=== PATIENT | male | born 1965 | race Caucasian/White ===

== ENCOUNTER 2016-11-22 18:01 | Emergency (ER) | payer BC ==
[~2016-11-22] VITALS: Ht 193 cm; Wt 184.2 kg
--- NOTE | 2016-11-22 18:25 | PHYS DOC ---
Adult General Chief Complaint Chief Complaint: HAND PROBLEM HPI HPI Patient is a 50 year old male who presents with bilateral fingertip and bottom of the feet numbness. He states it started yesterday. He states it feels like it's asleep. He denies any pain or discomfort he denies any weakness in any extremities. He does have mild bilateral temporal headache but denies any vomiting, neck pain, fevers or chills. He drinks rarely. He does have prediabetes and takes metformin and states his hemoglobin A1c is around 5 as he just had labs checked on Tuesday when he saw Dr. Washburn in his office. Review of Systems Review of Systems Constitutional: Denies fever or chills [] Eyes: Denies change in visual acuity, redness, or eye pain [] HENT: Denies nasal congestion or sore throat [] Respiratory: Denies cough or shortness of breath [] Cardiovascular: No additional information not addressed in HPI [] GI: Denies abdominal pain, nausea, vomiting, bloody stools or diarrhea [] : Denies dysuria or hematuria [] Musculoskeletal: Denies back pain or joint pain [] Integument: Denies rash or skin lesions [] Neurologic: Denies headache, focal weakness, positive for bilateral fingertip and bottom of feet numbness Endocrine: Denies polyuria or polydipsia [] Current Medications Current Medications Current Medications Medications (Trade) Dose Ordered Sig/[facility] Start Time Stop Time Status Last Admin Dose Admin Acetaminophen (Tylenol) 1,000 mg 1X ONCE 11/22/16 20:45 11/22/16 20:46 11/22/16 20:43 1,000 MG Allergies Allergies Allergies Coded Allergies Type Severity Reaction Last Updated Verified No Known Drug Allergies 11/22/16 No Physical Exam Physical Exam Constitutional: Well developed, well nourished, no acute distress, non-toxic appearance. [] HENT: Normocephalic, atraumatic, bilateral external ears normal, oropharynx moist, no oral exudates, nose normal. [] Eyes: PERRLA, EOMI, conjunctiva normal, no discharge. [] Neck: Normal range of motion, no tenderness, supple, no stridor. [] Cardiovascular:Heart rate regular rhythm, no murmur [] Lungs & Thorax: Bilateral breath sounds clear to auscultation [] Abdomen: Bowel sounds normal, soft, no tenderness, no masses, no pulsatile masses. [] Skin: Warm, dry, no erythema, no rash. [] Back: No tenderness, no CVA tenderness. [] Extremities: No tenderness, no cyanosis, no clubbing, ROM intact, no edema. [] Neurologic: Alert and oriented X 3, normal motor function, normal sensory function, no focal deficits noted. [] Psychologic: Affect normal, judgement normal, mood normal. [] Current Patient Data Vital Signs Vital Signs Date Time Temp Pulse Resp B/P (MAP) Pulse Ox O2 Delivery O2 Flow Rate FiO2 11/22/16 19:47 87 20 164/90 (114) 96 Room Air 11/22/16 18:15 97.5 97.5 Lab Values Laboratory Tests Test 11/22/16 18:35 11/22/16 18:54 Glucose (Fingerstick) 121 mg/dL (70-99) H White Blood Count 10.5 x10^3/uL (4.0-11.0) Red Blood Count 5.26 x10^6/uL (4.30-5.70) Hemoglobin 14.7 g/dL (13.0-17.5) Hematocrit 43.5 % (39.0-53.0) Mean Corpuscular Volume 83 fL (79-100) Mean Corpuscular Hemoglobin 28 pg (25-35) Mean Corpuscular Hemoglobin Concent 34 g/dL (31-37) Red Cell Distribution Width 13.9 % (11.5-14.5) Platelet Count 366 x10^3/uL (140-400) Neutrophils (%) (Auto) 73 % (31-73) Lymphocytes (%) (Auto) 17 % (24-48) L Monocytes (%) (Auto) 7 % (0-9) Eosinophils (%) (Auto) 2 % (0-3) Basophils (%) (Auto) 1 % (0-3) Neutrophils # (Auto) 7.7 x10^3uL (1.8-7.7) Lymphocytes # (Auto) 1.8 x10^3/uL (1.0-4.8) Monocytes # (Auto) 0.7 x10^3/uL (0.0-1.1) Eosinophils # (Auto) 0.2 x10^3/uL (0.0-0.7) Basophils # (Auto) 0.1 x10^3/uL (0.0-0.2) Sodium Level 141 mmol/L (136-145) Potassium Level 3.7 mmol/L (3.5-5.1) Chloride Level 102 mmol/L (98-107) Carbon Dioxide Level 33 mmol/L (21-32) H Anion Gap 6 (6-14) Blood Urea Nitrogen 18 mg/dL (8-26) Creatinine 1.1 mg/dL (0.7-1.3) Estimated GFR (Cockcroft-Gault) 70.9 Glucose Level 102 mg/dL (70-99) H Calcium Level 9.4 mg/dL (8.5-10.1) Magnesium Level 2.0 mg/dL (1.8-2.4) Total Bilirubin 0.5 mg/dL (0.2-1.0) Direct Bilirubin 0.1 mg/dL (0.0-0.2) Aspartate Amino Transferase (AST) 22 U/L (15-37) Alanine Aminotransferase (ALT) 33 U/L (16-63) Alkaline Phosphatase 62 U/L (46-116) Creatine Kinase 107 U/L (39-308) Creatine Kinase MB (Mass) 0.7 ng/mL (0.0-3.6) Creatine Kinase MB Relative Index 0.7 % (0-4) Total Protein 8.0 g/dL (6.4-8.2) Albumin 3.8 g/dL (3.4-5.0) Thyroid Stimulating Hormone (TSH) 4.088 uIU/mL (0.358-3.74) H Laboratory Tests 11/22/16 18:54 Laboratory Tests 11/22/16 18:54 EKG EKG [] Radiology/Procedures Radiology/Procedures [facility] [address] [place] [address] IMAGING REPORT Signed PATIENT: PHAM KILGORE ACCOUNT: [id number] : 1965 LOCATION: ER AGE: 50 SEX: M EXAM STATUS: REG ER ORD. PHYSICIAN: HANNAH MELARA MD REASON: hand numbness, headache PROCEDURE: CT HEAD WO CONTRAST Indication: Tingling in the feet. Axial imaging through the brain was performed without contrast. One or more of the following individualized dose reduction techniques were utilized for this examination: 1. Automated exposure control 2. Adjustment of the mA and/or kV according to patient size 3. Use of iterative reconstruction technique The ventricles and sulci are within normal limits. No sulcal effacement, midline shift or hemorrhage is detected. The cisterns are patent. There is mucosal thickening of the maxillary sinuses. IMPRESSION: No acute intracranial process is detected. Electronically signed by: Telly Keita MD (11/22/2016 8:11 PM) [facility] DICTATED and SIGNED BY: TELLY KEITA MD DATE: 11/22/162009 CC: HANNAH MELARA MD; SCOTT WASHBURN MD ~ Impressions: Peripheral neuropathy Course & Med Decision Making Course & Med Decision Making Pertinent Labs and Imaging studies reviewed. (See chart for details) Head does not show any acute abnormality's. He was given a gram of Tylenol for his mild headache which is likely sinus in nature. His symptoms are going on for greater than 24 hours. I do not suspect a stroke as its bilateral fingertips and bilateral soles of feet that feels like there are "asleep". B12 folic acids pending at this time. Patient's a follow-up with his primary care physician who can follow up on these labs and do additional testing if indicated that time. He does not have diabetes that severe enough to cause this or drink alcohol. Patient's agreeable plan being discharged in stable condition at this time with return precautions given. Dragon Disclaimer Dragon Disclaimer This electronic medical record was generated, in whole or in part, using a voice recognition dictation system. Departure Departure Impression: Primary Impression: Peripheral neuropathy Disposition: HOME, SELF-CARE Condition: STABLE Referrals: SCOTT WASHBURN MD Patient Instructions: Pain, Neuropathic-Brief Additional Instructions: CAT scan of your head, basic labs do not show any acute abnormality's. B12 and folic acid labs are still pending and you will need to follow-up with Dr. Washburn regarding these. If your symptoms get worse, you have any weakness, he developed fevers or other concerns please return back to the emergency department. Problem Qualifiers Primary Impression: Peripheral neuropathy Peripheral neuropathy type: polyneuropathy, unspecified Qualified Codes: G62.9 - Polyneuropathy, unspecified HANNAH MELARA MD Nov 22, 2016 18:25
[2016-11-22 19:02] LABS: BASO # 0.1 x10^3/uL (0.0-0.2); BASO % 1 % (0-3); EOS % 2 % (0-3); HEMATOCRIT 43.5 % (39.0-53.0); HEMOGLOBIN 14.7 g/dL (13.0-17.5); LYMPH # 1.8 x10^3/uL (1.0-4.8); LYMPH % 17 % (24-48); MEAN CORPUSCULAR HEMOGLOBIN 28 pg (25-35); MEAN CORPUSCULAR HGB CONC 34 g/dL (31-37); MEAN CORPUSCULAR VOLUME 83 fL (79-100); MONO % 7 % (0-9); NEUT % 73 % (31-73); PLATELET COUNT 366 x10^3/uL (140-400); RED BLOOD COUNT 5.26 x10^6/uL (4.30-5.70); RED CELL DISTRIBUTION WIDTH 13.9 % (11.5-14.5); WHITE BLOOD COUNT 10.5 x10^3/uL (4.0-11.0)
[2016-11-22 19:16] LABS: CALCIUM 9.4 mg/dL (8.5-10.1); CREATININE 1.1 mg/dL (0.7-1.3); GFR 70.9; POTASSIUM 3.7 mmol/L (3.5-5.1)
[2016-11-22 19:20] LABS: ALBUMIN 3.8 g/dL (3.4-5.0); DIRECT BILIRUBIN 0.1 mg/dL (0.0-0.2); TOTAL BILIRUBIN 0.5 mg/dL (0.2-1.0)
[2016-11-22 19:29] LABS: CKMB MASS 0.7 ng/mL (0.0-3.6)
[2016-11-22 20:14] VITALS: BP 136/74
--- NOTE | 2016-11-22 20:14 | RAD ---
Indication: Tingling in the feet. Axial imaging through the brain was performed without contrast. One or more of the following individualized dose reduction techniques were utilized for this examination: 1. Automated exposure control 2. Adjustment of the mA and/or kV according to patient size 3. Use of iterative reconstruction technique The ventricles and sulci are within normal limits. No sulcal effacement, midline shift or hemorrhage is detected. The cisterns are patent. There is mucosal thickening of the maxillary sinuses. IMPRESSION: No acute intracranial process is detected. Electronically signed by: Telly Keita MD (11/22/2016 8:11 PM) [facility]
[2016-11-22] MEDS ORDERED: ACETAMINOPHEN 500 MG TABLET PO ONE (20:45)
[2016-11-23 08:48] LABS: FOLATE 9.39 ng/ml (3.2-20.0)
== END 2016-11-22 21:02 | disposition home or self-care (01) ==
LOC: ER 18:01
DX: G62.9 Polyneuropathy, unspecified (principal)
CPT/HCPCS: 36415; 70450; 80048; 80076; 82553; 82607; 82746; 82962; 83735; 84443; 85025; 99285-25

== ENCOUNTER 2016-11-25 13:45 | Inpatient (IN) | payer BC ==
[~2016-11-25] VITALS: Ht 185.4 cm; Wt 186.4 kg
[2016-11-25 14:34] LABS: BASO # 0.1 x10^3/uL (0.0-0.2); BASO % 1 % (0-3); EOS % 0 % (0-3); HEMATOCRIT 48.4 % (39.0-53.0); HEMOGLOBIN 16.6 g/dL (13.0-17.5); LYMPH # 1.9 x10^3/uL (1.0-4.8); LYMPH % 12 % (24-48); MEAN CORPUSCULAR HEMOGLOBIN 28 pg (25-35); MEAN CORPUSCULAR HGB CONC 34 g/dL (31-37); MEAN CORPUSCULAR VOLUME 82 fL (79-100); MONO % 7 % (0-9); NEUT % 81 % (31-73); PLATELET COUNT 487 x10^3/uL (140-400); RED BLOOD COUNT 5.88 x10^6/uL (4.30-5.70); RED CELL DISTRIBUTION WIDTH 13.8 % (11.5-14.5); WHITE BLOOD COUNT 15.7 x10^3/uL (4.0-11.0)
[2016-11-25 14:46] LABS: CALCIUM 10.3 mg/dL (8.5-10.1); CREATININE 1.2 mg/dL (0.7-1.3); GFR 64.1; POTASSIUM 4.2 mmol/L (3.5-5.1)
--- NOTE | 2016-11-25 14:49 | EKG ---
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
[2016-11-25 14:51] LABS: ALBUMIN 4.2 g/dL (3.4-5.0); TOTAL BILIRUBIN 0.6 mg/dL (0.2-1.0); TOTAL PROTEIN 8.6 g/dL (6.4-8.2)
--- NOTE | 2016-11-25 15:03 | RAD ---
Indication generalized weakness. No specific chest complaints today. Protocol study. A single view of the chest was obtained. No prior imaging of the chest is available. The study is limited by some motion and patient body habitus. Heart size and pulmonary vessels appear within normal limits. There is some slight volume loss at the lung bases likely reflecting atelectasis. A consolidated pneumonia is not seen. Significant pleural fluid is not present and there is no pneumothorax. The visualized bony structures appear grossly intact. IMPRESSION: Slightly limited study. No acute finding seen. Minimal volume loss at the lung bases likely reflects atelectasis
--- NOTE | 2016-11-25 17:41 | RAD ---
MRI of the cervical spine without contrast 11/25/2016 CLINICAL HISTORY: Numbness in hands and feet since Tuesday. TECHNIQUE: Unenhanced T1-weighted, T2-weighted and inversion recovery sagittal and T2 weighted axial images of the brain were obtained. The patient was able to tolerate further imaging and gradient echo axial images of the cervical spine were unable to be obtained. FINDINGS: Images from the study are degraded by patient motion. Mild lateral curvature of the cervical spine is seen convex to the right. Degenerative signal changes are seen involving all of the disks of the cervical spine. Degenerative signal changes within the marrow surrounding these discs. The cervical spinal cord is normal morphology, position, and signal characteristics. The C2-3 disc space is within normal limits. At the C3-4 and C4-5 disc spaces there are mild generalized disc bulge. Degenerative changes are seen involving the uncovertebral and facet joints bilaterally. These findings do not result in significant central spinal canal. No neural foraminal stenosis is seen. At the C5-6 disc space there is a mild generalized disc bulge. Degenerative changes are seen involving the uncovertebral and facet joints. These findings do not result in significant central spinal canal stenosis. Mild bilateral neural foraminal stenosis is seen. At the C6-7 disc space there is a mild generalized disc bulge. Degenerative changes are seen involving the uncovertebral and facet joints bilaterally. These findings do not result in significant central spinal canal or neural foraminal stenosis. At the C7-T1 disc space there is a mild generalized disc bulge. Degenerative changes are seen involving the uncovertebral and facet joints bilaterally. These findings do not result in significant central spinal canal or neural foraminal stenosis. IMPRESSION: Degenerative changes are seen throughout the cervical spine. These findings do not result in significant central spinal canal stenosis at any level. Mild bilateral neural foraminal stenosis is seen at C5-6. Electronically signed by: Tonny Almazan MD (11/25/2016 5:37 PM) [facility]
[2016-11-25 18:25] LABS: BILIRUBIN,URINE NEGATIVE (NEG); GLUCOSE,URINE NEGATIVE (NEG); NITRITE,URINE NEGATIVE (NEG); PROTEIN,URINE NEGATIVE (NEG-TRACE)
[2016-11-25 18:34] LABS: BACTERIA,URINE 0 /HPF (0-FEW); RBC,URINE OCC /HPF (0-2); SQUAMOUS EPITHELIAL CELL,UR OCC /LPF; WBC,URINE OCC /HPF (0-4)
[2016-11-25] MEDS ORDERED: LIDOCAINE 2% 20 ML VIAL. ONE (19:13)
[2016-11-25] MEDS: IV NORMAL SALINE 1000ML BAG 1,000 ML IV SCH (20:42)
[2016-11-25] MEDS ORDERED: ONDANSETRON PF 4 MG/2 ML VIAL. IV PRN (20:45)
[2016-11-25 20:53] LABS: BARBITURATES NEG (NEG); BENZODIAZEPINES NEG (NEG); CANNABINOIDS NEG (NEG); COCAINE NEG (NEG); METHADONE NEG (NEG); OPIATES NEG (NEG); PHENCYCLIDINE NEG (NEG)
--- NOTE | 2016-11-25 21:03 | PHYS DOC ---
Past Medical History Past Medical History: Diabetes-Type II, Hypertension Additional Past Medical Histor: Gout, Obesity Past Surgical History: Appendectomy Additional Past Surgical Histo: wrist, knee Additional Information: Chews tobacco Alcohol Use: Occasionally Drug Use: None Adult General Chief Complaint Chief Complaint: WEAKNESS/GENERALIZED HPI HPI Patient is a 50 year old male who presents with generalized weakness, and numbness of fingers and toes. Symptoms started approximately one week ago. Patient was evaluated emergency department 3 days ago for the same. Patient had extensive workup including CT of the head and lateral which were normal. She was discharged home with instructions to follow-up by his PCP and is currently scheduled to see his doctor in 3 days. Patient's symptoms gradually worsens since discharge. He headache, neck pain, fever, back pain, urinary incontinence and bowel incontinence. No saddle anesthesia. Reports increased muscle weakness and poor progression of tingling. He denies shortness of breath, chest pain, chest tightness. Patient is a prediabetic is currently on metformin. Reports good control blood sugars and recent hemoglobin A1c of 5. Patient denies she no alcohol or history of malnutrition. No other acute symptoms or complaints.[] Review of Systems Review of Systems Review symptoms as per history of present illness. All other review symptoms are negative. Current Medications Current Medications Current Medications Medications (Trade) Dose Ordered Sig/Richie Start Time Stop Time Status Last Admin Dose Admin Lorazepam (Ativan) 2 mg 1X ONCE 11/25/16 16:45 11/25/16 16:46 DC 11/25/16 16:47 2 MG Allergies Allergies Allergies Coded Allergies Type Severity Reaction Last Updated Verified No Known Drug Allergies 11/22/16 No Physical Exam Physical Exam Constitutional: Well developed, well nourished, no acute distress, nontoxic appearing.[] HENT: Normocephalic, atraumatic, bilateral external ears normal, oropharynx moist, no oral exudates, nose normal. [] Eyes: PERRLA, EOMI, conjunctiva normal, no discharge. [] Neck: Normal range of motion, no tenderness, supple, no stridor. [] Cardiovascular:Heart rate regular rhythm, no murmur [] Lungs & Thorax: Bilateral breath sounds clear to auscultation [] Abdomen: Bowel sounds normal, soft, no tenderness, no masses, no pulsatile masses. [] Skin: Warm, dry, no erythema, no rash. [] Back: No tenderness, no CVA tenderness. [] Extremities: No tenderness, no cyanosis, no clubbing, ROM intact, no edema. [] Neurologic: Alert and oriented X 3, nerves II through XII grossly intact, motor strength, 4-5 upper and lower extremity and symmetric. Decreased sensation involving forefoot and toes, decreased sensation in TIPS the fingers from DIP to TIPS. Symmetric 1+ brachialis reflexes. Unable to illicit patellar reflexes. [][] Current Patient Data Vital Signs Vital Signs Date Time Temp Pulse Resp B/P (MAP) Pulse Ox O2 Delivery O2 Flow Rate FiO2 11/25/16 17:21 80 95 11/25/16 14:26 97.0 20 161/98 (119) Room Air 97.0 Lab Values Laboratory Tests Test 11/25/16 14:20 11/25/16 14:43 White Blood Count 15.7 x10^3/uL (4.0-11.0) H Red Blood Count 5.88 x10^6/uL (4.30-5.70) H Hemoglobin 16.6 g/dL (13.0-17.5) Hematocrit 48.4 % (39.0-53.0) Mean Corpuscular Volume 82 fL (79-100) Mean Corpuscular Hemoglobin 28 pg (25-35) Mean Corpuscular Hemoglobin Concent 34 g/dL (31-37) Red Cell Distribution Width 13.8 % (11.5-14.5) Platelet Count 487 x10^3/uL (140-400) H Neutrophils (%) (Auto) 81 % (31-73) H Lymphocytes (%) (Auto) 12 % (24-48) L Monocytes (%) (Auto) 7 % (0-9) Eosinophils (%) (Auto) 0 % (0-3) Basophils (%) (Auto) 1 % (0-3) Neutrophils # (Auto) 12.7 x10^3uL (1.8-7.7) H Lymphocytes # (Auto) 1.9 x10^3/uL (1.0-4.8) Monocytes # (Auto) 1.1 x10^3/uL (0.0-1.1) Eosinophils # (Auto) 0.0 x10^3/uL (0.0-0.7) Basophils # (Auto) 0.1 x10^3/uL (0.0-0.2) Sodium Level 137 mmol/L (136-145) Potassium Level 4.2 mmol/L (3.5-5.1) Chloride Level 99 mmol/L (98-107) Carbon Dioxide Level 27 mmol/L (21-32) Anion Gap 11 (6-14) Blood Urea Nitrogen 22 mg/dL (8-26) Creatinine 1.2 mg/dL (0.7-1.3) Estimated GFR (Cockcroft-Gault) 64.1 BUN/Creatinine Ratio 18 (6-20) Glucose Level 108 mg/dL (70-99) H Calcium Level 10.3 mg/dL (8.5-10.1) H Total Bilirubin 0.6 mg/dL (0.2-1.0) Aspartate Amino Transferase (AST) 36 U/L (15-37) Alanine Aminotransferase (ALT) 40 U/L (16-63) Alkaline Phosphatase 71 U/L (46-116) Troponin I Quantitative < 0.017 ng/mL (0.000-0.055) Total Protein 8.6 g/dL (6.4-8.2) H Albumin 4.2 g/dL (3.4-5.0) Albumin/Globulin Ratio 1.0 (1.0-1.7) Ethyl Alcohol Level < 10 mg/dL (0-10) Glucose (Fingerstick) 118 mg/dL (70-99) H Laboratory Tests 11/25/16 14:20 Laboratory Tests 11/25/16 14:20 EKG EKG [] Radiology/Procedures Radiology/Procedures [MRI cervical spine: Degenerative changes throughout cervical spine. Mild bilateral neural foraminal steosis at C5/6. CT brain 11/22/16: No acute intracranial process per radiology report Chest x-ray: No acute cardiopulmonary disease] Lumbar puncture procedure note: Condition: Motor weakness need to obtain CSF for lab testing: Consent: Verbal consent was obtained from patient and written consent was obtained from the patient's mother after full risks and benefits were discussed in detail along with alternatives. Patient's and patient's mother verbalized understanding prior to giving consent. Anesthesia used: The patient had previously been given Ativan for anxiolysis and is mildly sedated Operating physician: Dr. Aashish Myers The patient was placed in the left lateral recumbent position with knees to chest and chin to chest. His back was exposed and bowed towards the examiner. Approximate 4 mL of lidocaine was injected into the L2-L3 interspace. Following which a 3 and half inch 22-gauge Quincke needle was cautiously inserted. However , due to the patient's body habitus was unsuccessful and a larger needle was used to attempt to locate the dural space. Three attempts with a longer needle were unsuccessful. Patient experienced minimal discomfort. No further attempts were made. Attempts were then made to contact interventional radiology and request their assistance for fluoroscopic guidance of lumbar puncture procedure. Course & Med Decision Making Course & Med Decision Making Pertinent Labs and Imaging studies reviewed. (See chart for details) [Patient with bilateral neuropathy and motor weakness with symptoms and physical exam consistent with Maritza Barragan. Attempted lumbar puncture unsuccessful. Dr. Donahue consulted for neurology. Interventional radiology consult at for lumbar puncture by fluoroscopy camera. She'll be admitted to the ICU for K for monitor and placed on capnometry and further evaluation. Dragon Disclaimer Dragon Disclaimer This electronic medical record was generated, in whole or in part, using a voice recognition dictation system. Departure Departure Impression: Primary Impression: Weakness Additional Impressions: Numbness and tingling of both feet Bilateral finger numbness Disposition: ADMITTED INPATIENT Condition: GUARDED Referrals: SCOTT WASHBURN MD (PCP) Problem Qualifiers AASHISH MYERS DO Nov 25, 2016 21:03
[2016-11-25 21:30] VITALS: BP 166/88
[2016-11-25 21:45] VITALS: BP 169/86
[2016-11-25 22:00] VITALS: BP 166/97
[2016-11-25 22:15] VITALS: BP 166/94
[2016-11-25 23:00] VITALS: BP 149/94
[2016-11-26] VITALS (24 sets, daily range): BP systolic 146–189; BP diastolic 68–102
--- NOTE | 2016-11-26 00:06 | HP ---
ADMIT DATE: 11/25/2016 CHIEF COMPLAINT: Weakness and numbness hands and numb feet. HISTORY OF PRESENT ILLNESS: The patient is a pleasant 50-year-old male who has numb fingers and numb feet, he is also quite weak. His mother states she called her and states he could not move. He actually went to the ER last night, but today his symptoms have got worse. I discussed the case with the ER physician. I came and saw him in room 10 in the Emergency Room. On a hunch I did ask him if he got a flu shot, he states he got 1 to 2 weeks. 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 The patient is being admitted to the ICU. PAST MEDICAL HISTORY: Diabetes, hypertension, gout, obesity, appendectomy, wrist and knee surgery. ALLERGIES: None. FAMILY HISTORY: Diabetes. SOCIAL HISTORY: He does not drink, smoke or take drugs. MEDICATIONS: Reviewed. REVIEW OF SYSTEMS: GENERAL: No history of weight change, weakness or fevers. SKIN: No bruising, hair changes or rashes. EYES: No blurred, double or loss of vision. NOSE AND THROAT: No history of nosebleeds, hoarseness or sore throat. HEART: No history of palpitations, chest pain or shortness of breath on exertion. LUNGS: Denies cough, hemoptysis, wheezing or shortness of breath. GASTROINTESTINAL: Denies changes in appetite, nausea, vomiting, diarrhea or constipation. GENITOURINARY: No history of frequency, urgency, hesitancy or nocturia. NEUROLOGIC: He complains of weakness, and numb hands and numb feet. PSYCHIATRIC: No history of panic, anxiety or depression. ENDOCRINE: No history of heat or cold intolerance, polyuria or polydipsia. EXTREMITIES: Denies muscle weakness, joint pain, pain on walking or stiffness. PHYSICAL EXAMINATION: VITAL SIGNS: Temperature 98.2, pulse 110, respirations 20, blood pressure 162/90. GENERAL: He is awake. His mother is present. He is weak. HEART: Normal S1, S2. LUNGS: Clear. ABDOMEN: Soft, obese. EXTREMITIES: Trace edema. SKIN: No rashes. PSYCHIATRIC: He seems depressed. VASCULAR: Good capillary refill. ENDOCRINE: No thyromegaly. LYMPHATICS: No cervical nodes. HEMATOPOIETIC: No bruising. 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 LABORATORY DATA: White count 15, hemoglobin 16, platelets 47. Electrolytes normal. MRI of the brain was negative. Drug screen is negative. Urinalysis trace leukocyte esterase but otherwise negative. 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 I have discussed this at length with the ER physician. We did order an MRI to make sure there is no acute injury to the brain. We have consulted Dr. Donahue of the neurological service. We will admit to the ICU. We will consider IVIG and/or plasmapheresis if Dr. Donahue agrees. We have asked Dr. Hester of Interventional Radiology service to do a lumbar puncture. PROGNOSIS: Guarded. I am going go ahead and consult Infectious Disease for second opinion as well. JUAN LAZO DO DR: DIANA/concepcion JOB#: [id number] / [id number]
[2016-11-26] MEDS ORDERED: ALLO100T PO (00:58)
[2016-11-26] MEDS ORDERED: METO-239 PO (00:58)
[2016-11-26] MEDS ORDERED: METF850T2 PO (00:58)
[2016-11-26] MEDS ORDERED: LEVO50TA PO (00:58)
[2016-11-26] MEDS ORDERED: RANI150T6 PO (00:58)
[2016-11-26] MEDS ORDERED: LOSA1TAB25 PO (00:58)
[2016-11-26] MEDS ORDERED: BENZ100C PO (00:59)
[2016-11-26 05:52] LABS: BASO % 0 % (0-3); EOS % 0 % (0-3); HEMATOCRIT 43.4 % (39.0-53.0); HEMOGLOBIN 14.7 g/dL (13.0-17.5); LYMPH # 1.6 x10^3/uL (1.0-4.8); LYMPH % 11 % (24-48); MEAN CORPUSCULAR HEMOGLOBIN 28 pg (25-35); MEAN CORPUSCULAR HGB CONC 34 g/dL (31-37); MEAN CORPUSCULAR VOLUME 82 fL (79-100); MONO % 8 % (0-9); NEUT % 80 % (31-73); PLATELET COUNT 409 x10^3/uL (140-400); RED BLOOD COUNT 5.29 x10^6/uL (4.30-5.70); RED CELL DISTRIBUTION WIDTH 14.1 % (11.5-14.5); WHITE BLOOD COUNT 14.2 x10^3/uL (4.0-11.0)
[2016-11-26 06:34] LABS: GFR 79.1; POTASSIUM 3.4 mmol/L (3.5-5.1)
[2016-11-26] MEDS ORDERED: POTASSIUM CHLORIDE 20 MEQ TABLET.ER. PO ONE (07:45)
--- NOTE | 2016-11-26 08:41 | PDOC ---
Infectious Disease Note Vital Sign Vital Signs Vital Signs Date Time Temp Pulse Resp B/P (MAP) Pulse Ox O2 Delivery O2 Flow Rate FiO2 11/26/16 06:00 81 16 155/73 (100) 96 Room Air 11/26/16 04:00 98.5 98.5 11/26/16 02:00 2.0 Labs Lab Laboratory Tests Test 11/25/16 14:20 11/25/16 14:43 11/25/16 18:18 11/26/16 04:00 White Blood Count 15.7 x10^3/uL (4.0-11.0) 14.2 x10^3/uL (4.0-11.0) Red Blood Count 5.88 x10^6/uL (4.30-5.70) 5.29 x10^6/uL (4.30-5.70) Hemoglobin 16.6 g/dL (13.0-17.5) 14.7 g/dL (13.0-17.5) Hematocrit 48.4 % (39.0-53.0) 43.4 % (39.0-53.0) Mean Corpuscular Volume 82 fL (79-100) 82 fL (79-100) Mean Corpuscular Hemoglobin 28 pg (25-35) 28 pg (25-35) Mean Corpuscular Hemoglobin Concent 34 g/dL (31-37) 34 g/dL (31-37) Red Cell Distribution Width 13.8 % (11.5-14.5) 14.1 % (11.5-14.5) Platelet Count 487 x10^3/uL (140-400) 409 x10^3/uL (140-400) Neutrophils (%) (Auto) 81 % (31-73) 80 % (31-73) Lymphocytes (%) (Auto) 12 % (24-48) 11 % (24-48) Monocytes (%) (Auto) 7 % (0-9) 8 % (0-9) Eosinophils (%) (Auto) 0 % (0-3) 0 % (0-3) Basophils (%) (Auto) 1 % (0-3) 0 % (0-3) Neutrophils # (Auto) 12.7 x10^3uL (1.8-7.7) 11.4 x10^3uL (1.8-7.7) Lymphocytes # (Auto) 1.9 x10^3/uL (1.0-4.8) 1.6 x10^3/uL (1.0-4.8) Monocytes # (Auto) 1.1 x10^3/uL (0.0-1.1) 1.1 x10^3/uL (0.0-1.1) Eosinophils # (Auto) 0.0 x10^3/uL (0.0-0.7) 0.0 x10^3/uL (0.0-0.7) Basophils # (Auto) 0.1 x10^3/uL (0.0-0.2) 0.0 x10^3/uL (0.0-0.2) Sodium Level 137 mmol/L (136-145) 138 mmol/L (136-145) Potassium Level 4.2 mmol/L (3.5-5.1) 3.4 mmol/L (3.5-5.1) Chloride Level 99 mmol/L (98-107) 101 mmol/L (98-107) Carbon Dioxide Level 27 mmol/L (21-32) 25 mmol/L (21-32) Anion Gap 11 (6-14) 12 (6-14) Blood Urea Nitrogen 22 mg/dL (8-26) 22 mg/dL (8-26) Creatinine 1.2 mg/dL (0.7-1.3) 1.0 mg/dL (0.7-1.3) Estimated GFR (Cockcroft-Gault) 64.1 79.1 BUN/Creatinine Ratio 18 (6-20) Glucose Level 108 mg/dL (70-99) 110 mg/dL (70-99) Calcium Level 10.3 mg/dL (8.5-10.1) 9.0 mg/dL (8.5-10.1) Total Bilirubin 0.6 mg/dL (0.2-1.0) Aspartate Amino Transf (AST/SGOT) 36 U/L (15-37) Alanine Aminotransferase (ALT/SGPT) 40 U/L (16-63) Alkaline Phosphatase 71 U/L (46-116) Troponin I Quantitative < 0.017 ng/mL (0.000-0.055) Total Protein 8.6 g/dL (6.4-8.2) Albumin 4.2 g/dL (3.4-5.0) Albumin/Globulin Ratio 1.0 (1.0-1.7) Ethyl Alcohol Level < 10 mg/dL (0-10) RPR Titer Additional Testing Non reactive (Non Reactive) Glucose (Fingerstick) 118 mg/dL (70-99) Urine Color Yellow Urine Clarity Clear Urine pH 6.0 Urine Specific Daisy 1.025 Urine Protein Negative mg/dL (NEG-TRACE) Urine Glucose (UA) Negative mg/dL (NEG) Urine Ketones (Stick) 15 mg/dL (NEG) Urine Blood Trace (NEG) Urine Nitrite Negative (NEG) Urine Bilirubin Negative (NEG) Urine Urobilinogen Dipstick 1.0 mg/dL (0.2 mg/dL) Urine Leukocyte Esterase Trace (NEG) Urine RBC Occ /HPF (0-2) Urine WBC Occ /HPF (0-4) Urine Squamous Epithelial Cells Occ /LPF Urine Bacteria 0 /HPF (0-FEW) Urine Mucus Slight /LPF Urine Opiates Screen Neg (NEG) Urine Methadone Screen Neg (NEG) Urine Barbiturates Neg (NEG) Urine Phencyclidine Screen Neg (NEG) Urine Amphetamine/Methamphetamine Neg (NEG) Urine Benzodiazepines Screen Neg (NEG) Urine Cocaine Screen Neg (NEG) Urine Cannabinoids Screen Neg (NEG) Urine Ethyl Alcohol Neg (NEG) Test 11/26/16 07:45 Glucose (Fingerstick) 116 mg/dL (70-99) Objective Assessment Severe weakness, does not follow the GBS distribution Leukocytosis DM HTN Obesity Plan Plan of Care supportive care await Neurology input LP pending NICOLE CORDOVA MD Nov 26, 2016 08:41
--- NOTE | 2016-11-26 09:56 | CONS ---
DATE OF CONSULTATION: 11/26/2016 DATE OF SERVICE: 11/26/2016 REQUESTING PHYSICIAN: Dr. Shelly Murillo. REASON FOR CONSULTATION: Weakness with recent flu vaccine, rule out GBS and leukocytosis. HISTORY OF PRESENT ILLNESS: This is a 50-year-old gentleman who came in with extreme weakness. The patient says it started last Tuesday. It started with a tingling and numbness of the hands and feet and then he felt weak. The patient, although could walk. The patient denied any specific area of weakness with being leg first or anything like that. Denied any nausea, vomiting, diarrhea, denied any fever, chills, did have some headache and neck pain. The patient denied any urinary incontinence or bowel incontinence. The patient had visited 3 days ago in the ER and was discharged after workup, workup being negative. Now, since yesterday, he has difficulty walking he says and he is admitted for further workup. Lumbar puncture was attempted in the ER, was unsuccessful. The patient's white count was elevated as he came in yesterday at 15,000. The patient is currently sitting in chair, able to move his legs without any difficulty, and denies any chest pain, shortness of breath, abdominal pain, headache or visual symptoms. PAST MEDICAL HISTORY: Positive for diabetes mellitus and hypertension. The patient also has gout, obesity, has had appendicectomy. SOCIAL HISTORY: Negative for smoking, alcohol, illicit drug use. The patient does chew tobacco. ALLERGIES: No known drug allergies. CURRENT MEDICATIONS: Reviewed. REVIEW OF SYSTEMS: As per HPI, all other systems reviewed are negative. PHYSICAL EXAMINATION: GENERAL: Alert and oriented gentleman, not in distress. VITAL SIGNS: Stable, afebrile. HEENT: Both pupils are round and reacting. No conjunctival lesion, no ptosis or lid lag. NECK: Supple, no JVP, no lymphadenopathy. LUNGS: Clear. HEART: S1, S2 regular. ABDOMEN: Benign. EXTREMITIES: No edema or cyanosis. SKIN: Unremarkable. NEUROLOGIC: The patient does not appear to have any focal deficits. In fact, he is able to lift the legs against gravity and resistance, lower as well as upper extremities. SKIN: Unremarkable. The patient is awake, alert and appropriate in answering. LABORATORY DATA: White count is 14,000. BUN and creatinine is normal. His total protein is on the high side 8.6 with calcium being 10.3. Toxicology screen is negative. Urinalysis unremarkable. RPR done is negative. MRI of the cervical spine and CT of the head was unremarkable other than arthritis. IMPRESSION: 1. Extreme weakness, does not appear to me that following any Guillain-[place] Syndrome distribution. Atypical presentation is possible. The concern is that the patient did have 2 weeks ago flu vaccine. 2. Leukocytosis, probably reactive. 3. Diabetes. 4. Hypertension. 5. Obesity. RECOMMENDATION: Would continue supportive care. Await Neurology input . We will continue to follow. Thank you very much, Dr. Murillo, for giving me the opportunity to participate in this patient's care. NICOLE CORDOVA MD DR: NGOZI/concepcion JOB#: [id number] / [id number] DEBORAH
--- NOTE | 2016-11-26 11:19 | PDOC ---
PROGRESS NOTES Chief Complaint Chief Complaint Generalized weakness Numbness in hands and feet PMHx: Diabetes, hypertension, gout, obesity, appendectomy, wrist and knee surgery. History of Present Illness History of Present Illness Pt seen at bedside in the ICU, accompanied by . He is resting comfortably and sitting in his chair. Unable to ambulate due to weakness. He complains of some mild SOB at this time, but is moving air well, breathing on his own, able to speak in full sentences without pause and has normal O2 sats. He reports that his generalized weakness and numbness are still present, and seem to be worsening. Neuro consult placed-awaiting their input for further plan of care. IR and ID also consulted. Possible LP if recommended by neuro. Potassium at 3.4 this AM- 40 mg PO given. Will continue to monitor in the ICU for now and await subspec input. Vitals Vitals Vital Signs Date Time Temp Pulse Resp B/P (MAP) Pulse Ox O2 Delivery O2 Flow Rate FiO2 11/26/16 06:00 81 16 155/73 (100) 96 Room Air 11/26/16 04:00 98.5 98.5 11/26/16 02:00 2.0 Physical Exam General: Alert, Oriented X3, Cooperative, No acute distress Heart: Regular rate, Normal S1, Normal S2, No murmurs Lungs: Clear Abdomen: Soft Extremities: No clubbing, No cyanosis, No edema, Other (numbness of fingers and toes, diminished reflexes throughout) Skin: No rashes, No significant lesion Labs LABS Laboratory Tests Test 11/25/16 14:20 11/25/16 14:43 11/25/16 18:18 11/26/16 04:00 White Blood Count 15.7 x10^3/uL (4.0-11.0) 14.2 x10^3/uL (4.0-11.0) Red Blood Count 5.88 x10^6/uL (4.30-5.70) 5.29 x10^6/uL (4.30-5.70) Hemoglobin 16.6 g/dL (13.0-17.5) 14.7 g/dL (13.0-17.5) Hematocrit 48.4 % (39.0-53.0) 43.4 % (39.0-53.0) Mean Corpuscular Volume 82 fL (79-100) 82 fL (79-100) Mean Corpuscular Hemoglobin 28 pg (25-35) 28 pg (25-35) Mean Corpuscular Hemoglobin Concent 34 g/dL (31-37) 34 g/dL (31-37) Red Cell Distribution Width 13.8 % (11.5-14.5) 14.1 % (11.5-14.5) Platelet Count 487 x10^3/uL (140-400) 409 x10^3/uL (140-400) Neutrophils (%) (Auto) 81 % (31-73) 80 % (31-73) Lymphocytes (%) (Auto) 12 % (24-48) 11 % (24-48) Monocytes (%) (Auto) 7 % (0-9) 8 % (0-9) Eosinophils (%) (Auto) 0 % (0-3) 0 % (0-3) Basophils (%) (Auto) 1 % (0-3) 0 % (0-3) Neutrophils # (Auto) 12.7 x10^3uL (1.8-7.7) 11.4 x10^3uL (1.8-7.7) Lymphocytes # (Auto) 1.9 x10^3/uL (1.0-4.8) 1.6 x10^3/uL (1.0-4.8) Monocytes # (Auto) 1.1 x10^3/uL (0.0-1.1) 1.1 x10^3/uL (0.0-1.1) Eosinophils # (Auto) 0.0 x10^3/uL (0.0-0.7) 0.0 x10^3/uL (0.0-0.7) Basophils # (Auto) 0.1 x10^3/uL (0.0-0.2) 0.0 x10^3/uL (0.0-0.2) Sodium Level 137 mmol/L (136-145) 138 mmol/L (136-145) Potassium Level 4.2 mmol/L (3.5-5.1) 3.4 mmol/L (3.5-5.1) Chloride Level 99 mmol/L (98-107) 101 mmol/L (98-107) Carbon Dioxide Level 27 mmol/L (21-32) 25 mmol/L (21-32) Anion Gap 11 (6-14) 12 (6-14) Blood Urea Nitrogen 22 mg/dL (8-26) 22 mg/dL (8-26) Creatinine 1.2 mg/dL (0.7-1.3) 1.0 mg/dL (0.7-1.3) Estimated GFR (Cockcroft-Gault) 64.1 79.1 BUN/Creatinine Ratio 18 (6-20) Glucose Level 108 mg/dL (70-99) 110 mg/dL (70-99) Calcium Level 10.3 mg/dL (8.5-10.1) 9.0 mg/dL (8.5-10.1) Total Bilirubin 0.6 mg/dL (0.2-1.0) Aspartate Amino Transf (AST/SGOT) 36 U/L (15-37) Alanine Aminotransferase (ALT/SGPT) 40 U/L (16-63) Alkaline Phosphatase 71 U/L (46-116) Troponin I Quantitative < 0.017 ng/mL (0.000-0.055) Total Protein 8.6 g/dL (6.4-8.2) Albumin 4.2 g/dL (3.4-5.0) Albumin/Globulin Ratio 1.0 (1.0-1.7) Ethyl Alcohol Level < 10 mg/dL (0-10) RPR Titer Additional Testing Non reactive (Non Reactive) Glucose (Fingerstick) 118 mg/dL (70-99) Urine Color Yellow Urine Clarity Clear Urine pH 6.0 Urine Specific Traer 1.025 Urine Protein Negative mg/dL (NEG-TRACE) Urine Glucose (UA) Negative mg/dL (NEG) Urine Ketones (Stick) 15 mg/dL (NEG) Urine Blood Trace (NEG) Urine Nitrite Negative (NEG) Urine Bilirubin Negative (NEG) Urine Urobilinogen Dipstick 1.0 mg/dL (0.2 mg/dL) Urine Leukocyte Esterase Trace (NEG) Urine RBC Occ /HPF (0-2) Urine WBC Occ /HPF (0-4) Urine Squamous Epithelial Cells Occ /LPF Urine Bacteria 0 /HPF (0-FEW) Urine Mucus Slight /LPF Urine Opiates Screen Neg (NEG) Urine Methadone Screen Neg (NEG) Urine Barbiturates Neg (NEG) Urine Phencyclidine Screen Neg (NEG) Urine Amphetamine/Methamphetamine Neg (NEG) Urine Benzodiazepines Screen Neg (NEG) Urine Cocaine Screen Neg (NEG) Urine Cannabinoids Screen Neg (NEG) Urine Ethyl Alcohol Neg (NEG) Creatine Kinase 438 U/L (39-308) Vitamin B12 Level 377 pg/mL (247-911) Thyroid Stimulating Hormone (TSH) 2.899 uIU/mL (0.358-3.74) Test 11/26/16 07:45 Glucose (Fingerstick) 116 mg/dL (70-99) Review of Systems Review of Systems Gen: + generalized weakness, + fatigue, no fevers or chills CV: No CP or palp Resp: + mild SOB, no wheezing Neuro: + numbness to hands and feet Assessment and Plan Assessmemt and Plan Problems Medical Problems: (1) Bilateral finger numbness Status: Acute (2) Numbness and tingling of both feet Status: Acute (3) Weakness Status: Acute Assessment: Bilat Finger numbness Numbness and tingling to both feet generalized weakness SOB Diabetes hypertension gout obesity Plan: Discussed with patient and at bedside in the ICU Awaiting neuro input for further plan of care recheck labs PT/OT home meds ID and IR following Imaging negative for acute process Will continue to monitor in the ICU and await subspec input for further plan of care Problems: Comment Review of Relevant I have reviewed the following items jada (where applicable) has been applied. Labs Laboratory Tests Test 11/25/16 14:20 11/25/16 14:43 11/25/16 18:18 11/26/16 04:00 White Blood Count 15.7 x10^3/uL (4.0-11.0) 14.2 x10^3/uL (4.0-11.0) Red Blood Count 5.88 x10^6/uL (4.30-5.70) 5.29 x10^6/uL (4.30-5.70) Hemoglobin 16.6 g/dL (13.0-17.5) 14.7 g/dL (13.0-17.5) Hematocrit 48.4 % (39.0-53.0) 43.4 % (39.0-53.0) Mean Corpuscular Volume 82 fL (79-100) 82 fL (79-100) Mean Corpuscular Hemoglobin 28 pg (25-35) 28 pg (25-35) Mean Corpuscular Hemoglobin Concent 34 g/dL (31-37) 34 g/dL (31-37) Red Cell Distribution Width 13.8 % (11.5-14.5) 14.1 % (11.5-14.5) Platelet Count 487 x10^3/uL (140-400) 409 x10^3/uL (140-400) Neutrophils (%) (Auto) 81 % (31-73) 80 % (31-73) Lymphocytes (%) (Auto) 12 % (24-48) 11 % (24-48) Monocytes (%) (Auto) 7 % (0-9) 8 % (0-9) Eosinophils (%) (Auto) 0 % (0-3) 0 % (0-3) Basophils (%) (Auto) 1 % (0-3) 0 % (0-3) Neutrophils # (Auto) 12.7 x10^3uL (1.8-7.7) 11.4 x10^3uL (1.8-7.7) Lymphocytes # (Auto) 1.9 x10^3/uL (1.0-4.8) 1.6 x10^3/uL (1.0-4.8) Monocytes # (Auto) 1.1 x10^3/uL (0.0-1.1) 1.1 x10^3/uL (0.0-1.1) Eosinophils # (Auto) 0.0 x10^3/uL (0.0-0.7) 0.0 x10^3/uL (0.0-0.7) Basophils # (Auto) 0.1 x10^3/uL (0.0-0.2) 0.0 x10^3/uL (0.0-0.2) Sodium Level 137 mmol/L (136-145) 138 mmol/L (136-145) Potassium Level 4.2 mmol/L (3.5-5.1) 3.4 mmol/L (3.5-5.1) Chloride Level 99 mmol/L (98-107) 101 mmol/L (98-107) Carbon Dioxide Level 27 mmol/L (21-32) 25 mmol/L (21-32) Anion Gap 11 (6-14) 12 (6-14) Blood Urea Nitrogen 22 mg/dL (8-26) 22 mg/dL (8-26) Creatinine 1.2 mg/dL (0.7-1.3) 1.0 mg/dL (0.7-1.3) Estimated GFR (Cockcroft-Gault) 64.1 79.1 BUN/Creatinine Ratio 18 (6-20) Glucose Level 108 mg/dL (70-99) 110 mg/dL (70-99) Calcium Level 10.3 mg/dL (8.5-10.1) 9.0 mg/dL (8.5-10.1) Total Bilirubin 0.6 mg/dL (0.2-1.0) Aspartate Amino Transf (AST/SGOT) 36 U/L (15-37) Alanine Aminotransferase (ALT/SGPT) 40 U/L (16-63) Alkaline Phosphatase 71 U/L (46-116) Troponin I Quantitative < 0.017 ng/mL (0.000-0.055) Total Protein 8.6 g/dL (6.4-8.2) Albumin 4.2 g/dL (3.4-5.0) Albumin/Globulin Ratio 1.0 (1.0-1.7) Ethyl Alcohol Level < 10 mg/dL (0-10) RPR Titer Additional Testing Non reactive (Non Reactive) Glucose (Fingerstick) 118 mg/dL (70-99) Urine Color Yellow Urine Clarity Clear Urine pH 6.0 Urine Specific Traer 1.025 Urine Protein Negative mg/dL (NEG-TRACE) Urine Glucose (UA) Negative mg/dL (NEG) Urine Ketones (Stick) 15 mg/dL (NEG) Urine Blood Trace (NEG) Urine Nitrite Negative (NEG) Urine Bilirubin Negative (NEG) Urine Urobilinogen Dipstick 1.0 mg/dL (0.2 mg/dL) Urine Leukocyte Esterase Trace (NEG) Urine RBC Occ /HPF (0-2) Urine WBC Occ /HPF (0-4) Urine Squamous Epithelial Cells Occ /LPF Urine Bacteria 0 /HPF (0-FEW) Urine Mucus Slight /LPF Urine Opiates Screen Neg (NEG) Urine Methadone Screen Neg (NEG) Urine Barbiturates Neg (NEG) Urine Phencyclidine Screen Neg (NEG) Urine Amphetamine/Methamphetamine Neg (NEG) Urine Benzodiazepines Screen Neg (NEG) Urine Cocaine Screen Neg (NEG) Urine Cannabinoids Screen Neg (NEG) Urine Ethyl Alcohol Neg (NEG) Creatine Kinase 438 U/L (39-308) Vitamin B12 Level 377 pg/mL (247-911) Thyroid Stimulating Hormone (TSH) 2.899 uIU/mL (0.358-3.74) Test 11/26/16 07:45 Glucose (Fingerstick) 116 mg/dL (70-99) Laboratory Tests Test 11/25/16 14:20 11/25/16 14:43 11/25/16 18:18 11/26/16 04:00 White Blood Count 15.7 x10^3/uL (4.0-11.0) 14.2 x10^3/uL (4.0-11.0) Red Blood Count 5.88 x10^6/uL (4.30-5.70) 5.29 x10^6/uL (4.30-5.70) Hemoglobin 16.6 g/dL (13.0-17.5) 14.7 g/dL (13.0-17.5) Hematocrit 48.4 % (39.0-53.0) 43.4 % (39.0-53.0) Mean Corpuscular Volume 82 fL (79-100) 82 fL (79-100) Mean Corpuscular Hemoglobin 28 pg (25-35) 28 pg (25-35) Mean Corpuscular Hemoglobin Concent 34 g/dL (31-37) 34 g/dL (31-37) Red Cell Distribution Width 13.8 % (11.5-14.5) 14.1 % (11.5-14.5) Platelet Count 487 x10^3/uL (140-400) 409 x10^3/uL (140-400) Neutrophils (%) (Auto) 81 % (31-73) 80 % (31-73) Lymphocytes (%) (Auto) 12 % (24-48) 11 % (24-48) Monocytes (%) (Auto) 7 % (0-9) 8 % (0-9) Eosinophils (%) (Auto) 0 % (0-3) 0 % (0-3) Basophils (%) (Auto) 1 % (0-3) 0 % (0-3) Neutrophils # (Auto) 12.7 x10^3uL (1.8-7.7) 11.4 x10^3uL (1.8-7.7) Lymphocytes # (Auto) 1.9 x10^3/uL (1.0-4.8) 1.6 x10^3/uL (1.0-4.8) Monocytes # (Auto) 1.1 x10^3/uL (0.0-1.1) 1.1 x10^3/uL (0.0-1.1) Eosinophils # (Auto) 0.0 x10^3/uL (0.0-0.7) 0.0 x10^3/uL (0.0-0.7) Basophils # (Auto) 0.1 x10^3/uL (0.0-0.2) 0.0 x10^3/uL (0.0-0.2) Sodium Level 137 mmol/L (136-145) 138 mmol/L (136-145) Potassium Level 4.2 mmol/L (3.5-5.1) 3.4 mmol/L (3.5-5.1) Chloride Level 99 mmol/L (98-107) 101 mmol/L (98-107) Carbon Dioxide Level 27 mmol/L (21-32) 25 mmol/L (21-32) Anion Gap 11 (6-14) 12 (6-14) Blood Urea Nitrogen 22 mg/dL (8-26) 22 mg/dL (8-26) Creatinine 1.2 mg/dL (0.7-1.3) 1.0 mg/dL (0.7-1.3) Estimated GFR (Cockcroft-Gault) 64.1 79.1 BUN/Creatinine Ratio 18 (6-20) Glucose Level 108 mg/dL (70-99) 110 mg/dL (70-99) Calcium Level 10.3 mg/dL (8.5-10.1) 9.0 mg/dL (8.5-10.1) Total Bilirubin 0.6 mg/dL (0.2-1.0) Aspartate Amino Transf (AST/SGOT) 36 U/L (15-37) Alanine Aminotransferase (ALT/SGPT) 40 U/L (16-63) Alkaline Phosphatase 71 U/L (46-116) Troponin I Quantitative < 0.017 ng/mL (0.000-0.055) Total Protein 8.6 g/dL (6.4-8.2) Albumin 4.2 g/dL (3.4-5.0) Albumin/Globulin Ratio 1.0 (1.0-1.7) Ethyl Alcohol Level < 10 mg/dL (0-10) RPR Titer Additional Testing Non reactive (Non Reactive) Glucose (Fingerstick) 118 mg/dL (70-99) Urine Color Yellow Urine Clarity Clear Urine pH 6.0 Urine Specific Traer 1.025 Urine Protein Negative mg/dL (NEG-TRACE) Urine Glucose (UA) Negative mg/dL (NEG) Urine Ketones (Stick) 15 mg/dL (NEG) Urine Blood Trace (NEG) Urine Nitrite Negative (NEG) Urine Bilirubin Negative (NEG) Urine Urobilinogen Dipstick 1.0 mg/dL (0.2 mg/dL) Urine Leukocyte Esterase Trace (NEG) Urine RBC Occ /HPF (0-2) Urine WBC Occ /HPF (0-4) Urine Squamous Epithelial Cells Occ /LPF Urine Bacteria 0 /HPF (0-FEW) Urine Mucus Slight /LPF Urine Opiates Screen Neg (NEG) Urine Methadone Screen Neg (NEG) Urine Barbiturates Neg (NEG) Urine Phencyclidine Screen Neg (NEG) Urine Amphetamine/Methamphetamine Neg (NEG) Urine Benzodiazepines Screen Neg (NEG) Urine Cocaine Screen Neg (NEG) Urine Cannabinoids Screen Neg (NEG) Urine Ethyl Alcohol Neg (NEG) Creatine Kinase 438 U/L (39-308) Vitamin B12 Level 377 pg/mL (247-911) Thyroid Stimulating Hormone (TSH) 2.899 uIU/mL (0.358-3.74) Test 11/26/16 07:45 Glucose (Fingerstick) 116 mg/dL (70-99) Medications Current Medications Lorazepam (Ativan) 2 mg 1X ONCE IV Last administered on 11/25/16 16:15; Start 11/25/16 at 16:15; Stop 11/25/16 at 16:16; Status DC Lorazepam (Ativan) 2 mg 1X ONCE IV Last administered on 11/25/16 16:47; Start 11/25/16 at 16:45; Stop 11/25/16 at 16:46; Status DC Lidocaine HCl 20 ml STK-MED ONCE .ROUTE ; Start 11/25/16 at 19:13; Stop at 19:14; Status DC Ondansetron HCl (Zofran) 4 mg PRN Q8HRS PRN IV NAUSEA/VOMITING; Start at 20:45; Stop 11/26/16 at 20:44 Sodium Chloride 1,000 ml @ 150 mls/hr Q6H40M IV Last administered on 20:42; Start 11/25/16 at 20:42; Stop 11/26/16 at 20:41 Potassium Chloride (Klor-Con) 40 meq 1X ONCE PO Last administered on 09:14; Start 11/26/16 at 07:45; Stop 11/26/16 at 07:46; Status DC Active Scripts Active Reported Tessalon Perle (Benzonatate) 100 Mg Capsule 1 Cap PO TID Metformin Hcl 850 Mg Tablet 750 Mg PO DAILY Metoprolol Succinate ( Xl ) (Metoprolol Succinate) 25 Mg Tab.er.24h 1 Tab PO DAILY Losartan-Hctz 100-12.5 Mg Tab (Losartan/Hydrochlorothiazide) 1 Each Tablet 1 Tab PO DAILY Allopurinol 100 Mg Tablet 1 Tab PO DAILY Synthroid (Levothyroxine Sodium) 50 Mcg Tablet 1 Tab PO DAILY Zantac (Ranitidine Hcl) 150 Mg Tablet 1 Tab PO BID Vitals/I & O Vital Sign - Last 24 Hours 11/25/16 11/25/16 11/25/16 11/25/16 14:19 14:26 14:49 15:19 Temp 97.0 97.0 Pulse 84 83 78 68 Resp 20 B/P (MAP) 161/98 (119) Pulse Ox 96 96 95 95 O2 Delivery Room Air 11/25/16 11/25/16 11/25/16 11/25/16 17:21 18:21 19:30 20:30 Pulse 80 95 76 83 Pulse Ox 95 95 94 94 11/25/16 11/25/16 11/25/16 11/25/16 21:00 21:30 21:45 21:57 Temp 98.2 98.2 Pulse 74 110 106 Resp 16 18 B/P (MAP) 166/88 (114) 169/86 (113) Pulse Ox 95 97 97 O2 Delivery Nasal Cannula O2 Flow Rate 2.0 2.0 2.0 11/25/16 11/25/16 11/25/16 11/26/16 22:00 22:15 23:00 00:00 Temp 97.9 97.9 Pulse 94 90 94 96 Resp 20 16 15 16 B/P (MAP) 166/97 (120) 166/94 (118) 149/94 (112) 164/94 (117) Pulse Ox 96 96 95 93 O2 Flow Rate 2.0 2.0 2.0 2.0 11/26/16 11/26/16 11/26/16 11/26/16 00:09 01:00 02:00 03:00 Pulse 118 88 84 Resp 20 16 16 B/P (MAP) 168/78 (108) 146/75 (98) 168/68 (101) Pulse Ox 96 96 95 O2 Delivery Nasal Cannula Nasal Cannula Room Air O2 Flow Rate 2.0 2.0 2.0 11/26/16 11/26/16 11/26/16 11/26/16 04:00 04:00 05:00 06:00 Temp 98.5 98.5 Pulse 82 92 81 Resp 15 18 16 B/P (MAP) 179/82 (114) 174/95 (121) 155/73 (100) Pulse Ox 94 95 96 O2 Delivery Room Air Room Air Room Air Room Air JUAN LAZO III DO Nov 26, 2016 11:19
[2016-11-26] MEDS: IV NORMAL SALINE 1000ML BAG 1,000 ML IV SCH (11:34)
--- NOTE | 2016-11-26 12:30 | PDOC2 ---
NEUROLOGY CONSULT Date of Admission Date of Admission DATE: 11/26/16 TIME: 12:17 Reason for Consult Reason for Consult: IMPRESSION: Generalized weakness x 5 days. Numbness in distal extremities x 5 days. Leukocytosis. DM HTN Gout Degenerative C-spine disease. Obesity. RECOMMENDATIONS/PLAN: Treat medical diseases. LP for CSF exam. Doubt GBS. Lab: see orders. OT/PT. C-spine MRI w/o contrast on 11/25/16: mild stenosis and degenerative changes. No cord abnormality found. HISTORY OF THE PRESENT ILLNESS: 50-y-old male patient with above medical diseases developed symptoms of numbness in his fingers and toes and generalized weakness in all extremities for about 5 days. He was seen at ER about 3 days ago and was discharged home to follow up with his PCP. His symptoms became worse stating he was unable to stand or walk, so he went to ER again on 11/25/16. LP was attempted in the ER but was not successful. No cranial nerve deficits. No urinary or bowel dysfunction. PAST MEDICAL HISTORY: Please see above. PAST SURGERY HISTORY: Appendectomy ALLERGY: NKDA MEDICATIONS: Refer to [facility] FAMILY HISTORY: DM SOCIAL HISTORY: Lives at home. Denies current smoking, drinking, and illicit drug use. REVIEW OF SYSTEMS: Constitutional: Near morbid obesity. Head: No recent traumatic brain or head injury. Skin: No edema, or rash. Ear: No infection. Eyes: No vision loss or color blindness. Nose: No bleeding or purulent discharges. Hearing: No hearing decrease. Neck: No injury. Cardiac: HTN. Pulmonary: No COPD. GI: No GI ulcer, GI bleeding. Urinary/genital: No dysuria, incontinence, urinary retention. Endocrinologic: Diabetes Mellitus, morbid obesity. Skeletomuscular: ]Generalized weakness this time. Neurological: see HP. Psychiatric: Denies drug use/abuse. Otherwise, not [id number] review of systems. PHYSICAL EXAMINATION: General appearance is in subacute distress. HEENT: Normocephalic and nontraumatic. Eyes, nose, ears, and throat are unremarkable. Neck is supple. No lymphadenopathy. No crepitus. Cardiovascular: S1, S2, regular rate and rhythm. Pulmonary: Clear to auscultation bilaterally. Abdomen: Bowel sounds are positive. Extremities: No rash, lesions, or edema. No restriction of range of motion NEUROLOGICAL EXAMINATION: Alert Oriented to time, place and person. PERRL. EOMI. CN: no focal findings. Muscle tone: within normal. Muscle strength: 4 to 4+ DTR: 2 Plantar reflex: Flexor response bilaterally Gait: not examined in chair. Sensory exam: no abnormal findings found. No cerebellar signs elicited. F-T-N test fine. Current Medications Current Medications Current Medications Lorazepam (Ativan) 2 mg 1X ONCE IV Last administered on 11/25/16 16:15; Start 11/25/16 at 16:15; Stop 11/25/16 at 16:16; Status DC Lorazepam (Ativan) 2 mg 1X ONCE IV Last administered on 11/25/16 16:47; Start 11/25/16 at 16:45; Stop 11/25/16 at 16:46; Status DC Lidocaine HCl 20 ml STK-MED ONCE .ROUTE ; Start 11/25/16 at 19:13; Stop at 19:14; Status DC Ondansetron HCl (Zofran) 4 mg PRN Q8HRS PRN IV NAUSEA/VOMITING; Start at 20:45; Stop 11/26/16 at 20:44 Sodium Chloride 1,000 ml @ 150 mls/hr Q6H40M IV Last administered on 11:34; Start 11/25/16 at 20:42; Stop 11/26/16 at 20:41 Potassium Chloride (Klor-Con) 40 meq 1X ONCE PO Last administered on 09:14; Start 11/26/16 at 07:45; Stop 11/26/16 at 07:46; Status DC Active Scripts Active Reported Tessalon Perle (Benzonatate) 100 Mg Capsule 1 Cap PO TID Metformin Hcl 850 Mg Tablet 750 Mg PO DAILY Metoprolol Succinate ( Xl ) (Metoprolol Succinate) 25 Mg Tab.er.24h 1 Tab PO DAILY Losartan-Hctz 100-12.5 Mg Tab (Losartan/Hydrochlorothiazide) 1 Each Tablet 1 Tab PO DAILY Allopurinol 100 Mg Tablet 1 Tab PO DAILY Synthroid (Levothyroxine Sodium) 50 Mcg Tablet 1 Tab PO DAILY Zantac (Ranitidine Hcl) 150 Mg Tablet 1 Tab PO BID Allergies Allergies: Coded Allergies: No Known Drug Allergies (Unverified , 11/22/16) Vitals VITALS Vital Signs Date Time Temp Pulse Resp B/P (MAP) Pulse Ox O2 Delivery O2 Flow Rate FiO2 11/26/16 06:00 81 16 155/73 (100) 96 Room Air 11/26/16 04:00 98.5 98.5 11/26/16 02:00 2.0 Labs Labs Laboratory Tests Test 11/25/16 14:20 11/25/16 14:43 11/25/16 18:18 11/26/16 04:00 White Blood Count 15.7 x10^3/uL (4.0-11.0) 14.2 x10^3/uL (4.0-11.0) Red Blood Count 5.88 x10^6/uL (4.30-5.70) 5.29 x10^6/uL (4.30-5.70) Hemoglobin 16.6 g/dL (13.0-17.5) 14.7 g/dL (13.0-17.5) Hematocrit 48.4 % (39.0-53.0) 43.4 % (39.0-53.0) Mean Corpuscular Volume 82 fL (79-100) 82 fL (79-100) Mean Corpuscular Hemoglobin 28 pg (25-35) 28 pg (25-35) Mean Corpuscular Hemoglobin Concent 34 g/dL (31-37) 34 g/dL (31-37) Red Cell Distribution Width 13.8 % (11.5-14.5) 14.1 % (11.5-14.5) Platelet Count 487 x10^3/uL (140-400) 409 x10^3/uL (140-400) Neutrophils (%) (Auto) 81 % (31-73) 80 % (31-73) Lymphocytes (%) (Auto) 12 % (24-48) 11 % (24-48) Monocytes (%) (Auto) 7 % (0-9) 8 % (0-9) Eosinophils (%) (Auto) 0 % (0-3) 0 % (0-3) Basophils (%) (Auto) 1 % (0-3) 0 % (0-3) Neutrophils # (Auto) 12.7 x10^3uL (1.8-7.7) 11.4 x10^3uL (1.8-7.7) Lymphocytes # (Auto) 1.9 x10^3/uL (1.0-4.8) 1.6 x10^3/uL (1.0-4.8) Monocytes # (Auto) 1.1 x10^3/uL (0.0-1.1) 1.1 x10^3/uL (0.0-1.1) Eosinophils # (Auto) 0.0 x10^3/uL (0.0-0.7) 0.0 x10^3/uL (0.0-0.7) Basophils # (Auto) 0.1 x10^3/uL (0.0-0.2) 0.0 x10^3/uL (0.0-0.2) Sodium Level 137 mmol/L (136-145) 138 mmol/L (136-145) Potassium Level 4.2 mmol/L (3.5-5.1) 3.4 mmol/L (3.5-5.1) Chloride Level 99 mmol/L (98-107) 101 mmol/L (98-107) Carbon Dioxide Level 27 mmol/L (21-32) 25 mmol/L (21-32) Anion Gap 11 (6-14) 12 (6-14) Blood Urea Nitrogen 22 mg/dL (8-26) 22 mg/dL (8-26) Creatinine 1.2 mg/dL (0.7-1.3) 1.0 mg/dL (0.7-1.3) Estimated GFR (Cockcroft-Gault) 64.1 79.1 BUN/Creatinine Ratio 18 (6-20) Glucose Level 108 mg/dL (70-99) 110 mg/dL (70-99) Calcium Level 10.3 mg/dL (8.5-10.1) 9.0 mg/dL (8.5-10.1) Total Bilirubin 0.6 mg/dL (0.2-1.0) Aspartate Amino Transf (AST/SGOT) 36 U/L (15-37) Alanine Aminotransferase (ALT/SGPT) 40 U/L (16-63) Alkaline Phosphatase 71 U/L (46-116) Troponin I Quantitative < 0.017 ng/mL (0.000-0.055) Total Protein 8.6 g/dL (6.4-8.2) Albumin 4.2 g/dL (3.4-5.0) Albumin/Globulin Ratio 1.0 (1.0-1.7) Ethyl Alcohol Level < 10 mg/dL (0-10) RPR Titer Additional Testing Non reactive (Non Reactive) Glucose (Fingerstick) 118 mg/dL (70-99) Urine Color Yellow Urine Clarity Clear Urine pH 6.0 Urine Specific [place] 1.025 Urine Protein Negative mg/dL (NEG-TRACE) Urine Glucose (UA) Negative mg/dL (NEG) Urine Ketones (Stick) 15 mg/dL (NEG) Urine Blood Trace (NEG) Urine Nitrite Negative (NEG) Urine Bilirubin Negative (NEG) Urine Urobilinogen Dipstick 1.0 mg/dL (0.2 mg/dL) Urine Leukocyte Esterase Trace (NEG) Urine RBC Occ /HPF (0-2) Urine WBC Occ /HPF (0-4) Urine Squamous Epithelial Cells Occ /LPF Urine Bacteria 0 /HPF (0-FEW) Urine Mucus Slight /LPF Urine Opiates Screen Neg (NEG) Urine Methadone Screen Neg (NEG) Urine Barbiturates Neg (NEG) Urine Phencyclidine Screen Neg (NEG) Urine Amphetamine/Methamphetamine Neg (NEG) Urine Benzodiazepines Screen Neg (NEG) Urine Cocaine Screen Neg (NEG) Urine Cannabinoids Screen Neg (NEG) Urine Ethyl Alcohol Neg (NEG) Creatine Kinase 438 U/L (39-308) Vitamin B12 Level 377 pg/mL (247-911) Thyroid Stimulating Hormone (TSH) 2.899 uIU/mL (0.358-3.74) Test 11/26/16 07:45 11/26/16 11:40 Glucose (Fingerstick) 116 mg/dL (70-99) Prothrombin Time 13.0 SEC (11.7-14.0) Prothromb Time International Ratio 1.0 (0.8-1.1) Laboratory Tests Test 11/25/16 14:20 11/25/16 14:43 11/25/16 18:18 11/26/16 04:00 White Blood Count 15.7 x10^3/uL (4.0-11.0) 14.2 x10^3/uL (4.0-11.0) Red Blood Count 5.88 x10^6/uL (4.30-5.70) 5.29 x10^6/uL (4.30-5.70) Hemoglobin 16.6 g/dL (13.0-17.5) 14.7 g/dL (13.0-17.5) Hematocrit 48.4 % (39.0-53.0) 43.4 % (39.0-53.0) Mean Corpuscular Volume 82 fL (79-100) 82 fL (79-100) Mean Corpuscular Hemoglobin 28 pg (25-35) 28 pg (25-35) Mean Corpuscular Hemoglobin Concent 34 g/dL (31-37) 34 g/dL (31-37) Red Cell Distribution Width 13.8 % (11.5-14.5) 14.1 % (11.5-14.5) Platelet Count 487 x10^3/uL (140-400) 409 x10^3/uL (140-400) Neutrophils (%) (Auto) 81 % (31-73) 80 % (31-73) Lymphocytes (%) (Auto) 12 % (24-48) 11 % (24-48) Monocytes (%) (Auto) 7 % (0-9) 8 % (0-9) Eosinophils (%) (Auto) 0 % (0-3) 0 % (0-3) Basophils (%) (Auto) 1 % (0-3) 0 % (0-3) Neutrophils # (Auto) 12.7 x10^3uL (1.8-7.7) 11.4 x10^3uL (1.8-7.7) Lymphocytes # (Auto) 1.9 x10^3/uL (1.0-4.8) 1.6 x10^3/uL (1.0-4.8) Monocytes # (Auto) 1.1 x10^3/uL (0.0-1.1) 1.1 x10^3/uL (0.0-1.1) Eosinophils # (Auto) 0.0 x10^3/uL (0.0-0.7) 0.0 x10^3/uL (0.0-0.7) Basophils # (Auto) 0.1 x10^3/uL (0.0-0.2) 0.0 x10^3/uL (0.0-0.2) Sodium Level 137 mmol/L (136-145) 138 mmol/L (136-145) Potassium Level 4.2 mmol/L (3.5-5.1) 3.4 mmol/L (3.5-5.1) Chloride Level 99 mmol/L (98-107) 101 mmol/L (98-107) Carbon Dioxide Level 27 mmol/L (21-32) 25 mmol/L (21-32) Anion Gap 11 (6-14) 12 (6-14) Blood Urea Nitrogen 22 mg/dL (8-26) 22 mg/dL (8-26) Creatinine 1.2 mg/dL (0.7-1.3) 1.0 mg/dL (0.7-1.3) Estimated GFR (Cockcroft-Gault) 64.1 79.1 BUN/Creatinine Ratio 18 (6-20) Glucose Level 108 mg/dL (70-99) 110 mg/dL (70-99) Calcium Level 10.3 mg/dL (8.5-10.1) 9.0 mg/dL (8.5-10.1) Total Bilirubin 0.6 mg/dL (0.2-1.0) Aspartate Amino Transf (AST/SGOT) 36 U/L (15-37) Alanine Aminotransferase (ALT/SGPT) 40 U/L (16-63) Alkaline Phosphatase 71 U/L (46-116) Troponin I Quantitative < 0.017 ng/mL (0.000-0.055) Total Protein 8.6 g/dL (6.4-8.2) Albumin 4.2 g/dL (3.4-5.0) Albumin/Globulin Ratio 1.0 (1.0-1.7) Ethyl Alcohol Level < 10 mg/dL (0-10) RPR Titer Additional Testing Non reactive (Non Reactive) Glucose (Fingerstick) 118 mg/dL (70-99) Urine Color Yellow Urine Clarity Clear Urine pH 6.0 Urine Specific [place] 1.025 Urine Protein Negative mg/dL (NEG-TRACE) Urine Glucose (UA) Negative mg/dL (NEG) Urine Ketones (Stick) 15 mg/dL (NEG) Urine Blood Trace (NEG) Urine Nitrite Negative (NEG) Urine Bilirubin Negative (NEG) Urine Urobilinogen Dipstick 1.0 mg/dL (0.2 mg/dL) Urine Leukocyte Esterase Trace (NEG) Urine RBC Occ /HPF (0-2) Urine WBC Occ /HPF (0-4) Urine Squamous Epithelial Cells Occ /LPF Urine Bacteria 0 /HPF (0-FEW) Urine Mucus Slight /LPF Urine Opiates Screen Neg (NEG) Urine Methadone Screen Neg (NEG) Urine Barbiturates Neg (NEG) Urine Phencyclidine Screen Neg (NEG) Urine Amphetamine/Methamphetamine Neg (NEG) Urine Benzodiazepines Screen Neg (NEG) Urine Cocaine Screen Neg (NEG) Urine Cannabinoids Screen Neg (NEG) Urine Ethyl Alcohol Neg (NEG) Creatine Kinase 438 U/L (39-308) Vitamin B12 Level 377 pg/mL (247-911) Thyroid Stimulating Hormone (TSH) 2.899 uIU/mL (0.358-3.74) Test 11/26/16 07:45 11/26/16 11:40 Glucose (Fingerstick) 116 mg/dL (70-99) Prothrombin Time 13.0 SEC (11.7-14.0) Prothromb Time International Ratio 1.0 (0.8-1.1) ELEUTERIO RYAN MD Nov 26, 2016 12:30
[2016-11-26] MEDS ORDERED: LIDOCAINE 1% / SOD BICARB 8.4% 20 ML VIAL. IJ ONE ×3 (12:45→16:22)
--- NOTE | 2016-11-26 14:17 | PDOC ---
Provider Note Provider Note The fluoro guided LP was performed utilizing a 20 g needle without difficulty. 9cc of clear CSF was removed and sent to the lab for appropriate studies. The patient left the department in stable condition. NACHO ZAMUDIO MD Nov 26, 2016 14:17
--- NOTE | 2016-11-26 14:48 | RAD ---
Fluoroscopically guided lumbar puncture, 11/26/2016: History: Altered mental status, possible infection or GBS Under local anesthesia, aseptic conditions and fluoroscopic guidance a lumbar puncture was performed at the upper L3 level utilizing a 20-gauge spinal needle. Good clear CSF flow was obtained. The opening pressure was 18 cm of water. A total of 9 cc of CSF was removed and sent to lab for appropriate studies. The spinal needle was then removed and hemostasis obtained. One fluoroscopic spot image was recorded. 0.9 minutes of fluoroscopy time was utilized. The patient tolerated the procedure well and left the department in stable condition.
[2016-11-26 15:03] LABS: CSF PROTEIN 115.5 mg/dL (15.0-45.0)
[2016-11-26 15:14] LABS: CSF CLARITY CLEAR; CSF COLOR COLORLESS
[2016-11-26] MEDS ORDERED: HEPARIN for IV BOLUS 10,000 UNIT/10 ML VIAL. ONE (16:22)
[2016-11-26] MEDS: LABETALOL 20 MG/4 ML DISP.SYRIN. IVP PRN (17:50)
--- NOTE | 2016-11-26 17:50 | RAD ---
AP portable chest radiograph 11/26/2016 Clinical History: Postcentral line placement. An AP erect portable digital radiograph of the chest was obtained. No previous studies are available for comparison this time. A large bore right internal jugular central venous catheter has been placed. The tip of this catheter extends to overlie the right atrium of the heart. The cardiac silhouette is borderline enlarged. The thoracic aorta is minimally tortuous. Patchy right lower lobe subsegmental atelectasis and/or infiltrate is noted. No pneumothorax or pleural effusion is seen. Degenerative changes are seen involving the thoracic spine. IMPRESSION: Interval placement of a right internal jugular large bore central venous catheter. This catheter extends to overlie the right atrium of the heart. No pneumothorax is seen. Electronically signed by: Tonny Almazan MD (11/26/2016 5:47 PM) [facility]
[2016-11-26] MEDS ORDERED: HEPARIN for IV BOLUS 10,000 UNIT/10 ML VIAL. IV ONE (19:45)
[2016-11-26] MEDS ORDERED: NORMAL SALINE IV SCH (19:45)
[2016-11-26] MEDS ORDERED: ALBUMIN HUMAN IV ONE ×4 (19:45)
[2016-11-26] MEDS ORDERED: HYDROcodone/APAP 5/325MG 1 TAB TABLET PO PRN (20:45)
[2016-11-26] MEDS ORDERED: MORPHINE SULFATE 2 MG/ML DISP.SYRIN. IV PRN (20:45)
[2016-11-26] MEDS: FAMOTIDINE 20 MG TABLET. PO SCH (21:37)
[2016-11-26] MEDS: LORazepam 0.5 MG TABLET PO PRN (21:37)
[2016-11-26] MEDS: BENZONATATE 100 MG CAPSULE. PO SCH (21:37)
[2016-11-26] MEDS: HYDROcodone/APAP 10/325 1 TAB TABLET PO PRN (21:54)
[2016-11-26] MEDS ORDERED: ONDANSETRON PF 4 MG/2 ML VIAL. IV PRN (23:00)
[2016-11-26] MEDS ORDERED: PROCHLORPERAZINE 10 MG/2 ML VIAL. IV PRN (23:00)
[2016-11-26] MEDS ORDERED: ALBUTEROL SULFATE 2.5 MG/3 ML NEBU. NEB ONE (23:45)
[2016-11-27] VITALS (24 sets, daily range): BP systolic 111–210; BP diastolic 58–109
[2016-11-27] MEDS ORDERED: FUROSEMIDE 20 MG/2 ML VIAL. IVP ONE (00:30)
--- NOTE | 2016-11-27 00:46 | RAD ---
INDICATION: respiratory distress COMPARISON: One day prior FINDINGS: Single view of chest obtained. Right-sided central venous catheter is again seen with tip at expected location of right atrium. Cardiac silhouette enlarged. Interstitial and alveolar opacities through the bilateral lungs appears increased from prior. Linear opacity at right lower lung. IMPRESSION: Interval increase in interstitial and alveolar opacities bilaterally which could be secondary to pulmonary edema although multi focal infiltrate is also within the differential. Linear structure seen at the right lung base. Could be secondary to a region of linear atelectasis but intraperitoneal free air can also have this appearance. Repeat upright chest x-ray or abdominal CT could be helpful to further evaluate. Report called to the patient's floor at 12:40 AM on date of exam. Electronically signed by: Sam Rao MD (11/27/2016 12:43 AM) [facility]
[2016-11-27] MEDS: LABETALOL 20 MG/4 ML DISP.SYRIN. IVP PRN ×5 (01:04→15:08)
[2016-11-27 05:41] LABS: BASO % 0 % (0-3); EOS % 0 % (0-3); HEMATOCRIT 47.4 % (39.0-53.0); HEMOGLOBIN 15.6 g/dL (13.0-17.5); LYMPH # 1.7 x10^3/uL (1.0-4.8); LYMPH % 8 % (24-48); MEAN CORPUSCULAR HEMOGLOBIN 28 pg (25-35); MEAN CORPUSCULAR HGB CONC 33 g/dL (31-37); MEAN CORPUSCULAR VOLUME 84 fL (79-100); MONO % 6 % (0-9); NEUT % 86 % (31-73); PLATELET COUNT 382 x10^3/uL (140-400); RED BLOOD COUNT 5.62 x10^6/uL (4.30-5.70); RED CELL DISTRIBUTION WIDTH 14.4 % (11.5-14.5); WHITE BLOOD COUNT 21.5 x10^3/uL (4.0-11.0)
[2016-11-27 05:52] LABS: INR 1.5 (0.8-1.1); PROTHROMBIN TIME PATIENT 17.5 SEC (11.7-14.0)
[2016-11-27 06:34] LABS: CALCIUM 7.5 mg/dL (8.5-10.1); CREATININE 0.9 mg/dL (0.7-1.3); GFR 89.3; POTASSIUM 3.9 mmol/L (3.5-5.1)
[2016-11-27] MEDS: LEVOTHYROXINE 50 MCG TABLET PO SCH (08:03)
[2016-11-27] MEDS: metFORMIN 850 MG TABLET PO SCH (08:03)
[2016-11-27] MEDS: IPRATRPIUM/ALBUTEROL 0.5/2.5MG 3 ML NEBU. NEB SCH ×4 (08:21→19:21)
[2016-11-27 08:39] LABS: HCO3 ABG 21 mmol/L (21-28); PCO2 ABG 36 mmHg (35-46); PH ABG 7.37 (7.35-7.45); PO2 ABG 78 mmHg (75-108); SAT O2 ABG 95 % (92-99)
[2016-11-27 08:40] LABS: FIO2 ABG 28
[2016-11-27] MEDS: hydroCHLOROthiazide 12.5 MG CAPSULE PO SCH (09:04)
[2016-11-27] MEDS: BENZONATATE 100 MG CAPSULE. PO SCH ×3 (09:04→20:22)
[2016-11-27] MEDS: LOSARTAN POTASSIUM 50 MG TABLET. PO SCH (09:04)
[2016-11-27] MEDS: ALLOPURINOL 100 MG TABLET. PO SCH (09:05)
[2016-11-27] MEDS: FAMOTIDINE 20 MG TABLET. PO SCH ×2 (09:05→20:23)
[2016-11-27] MEDS: METOPROLOL SUCC 24HR ER 25 MG TAB.ER.24H. PO SCH (09:05)
--- NOTE | 2016-11-27 09:36 | PDOC ---
Infectious Disease Note Subjective Subjective Getting s/p plasmapheresis Patients says he feels a little bit stronger but hasn't tried to get out of bed yet. Persistent numbing/tingling sensation of fingers, toes and bottom of feet bilat. Denies pain Mild SOA. Denies CP or cough BiPAP last night now on 2L NC O2, sats 95% Hypertensive ROS ROS GEN: Denies fevers, chills, sweats CV: Denies chest pain GI: Denies n/v/d NEURO: Denies confusion, dizziness or headaches Vital Sign Vital Signs Vital Signs Date Time Temp Pulse Resp B/P (MAP) Pulse Ox O2 Delivery O2 Flow Rate FiO2 11/27/16 09:05 102 210/109 11/27/16 08:22 96 Nasal Cannula 2.0 11/27/16 08:00 98.4 15 98.4 Physical Exam PHYSICAL EXAM GENERAL: Watching TV, NAD HEENT: PERRL, OC/OP dry NECK: Supple LUNGS: Clear, little labored appearing HEART: S1S2, no murmur appreciated ABD: Obese, soft, NT, BS active : Workman EXT: No edema, no cyanosis PROJECT DEVELOPMENT MANAGER: Alert, oriented x 3. RAVI SKIN: No rash IV: ok HDC. (11/26). clean Labs Lab Laboratory Tests Test 11/26/16 11:40 11/26/16 12:20 11/26/16 14:00 11/26/16 17:22 Erythrocyte Sedimentation Rate 25 (0-15) Prothrombin Time 13.0 SEC (11.7-14.0) Prothromb Time International Ratio 1.0 (0.8-1.1) Glucose (Fingerstick) 108 mg/dL (70-99) 126 mg/dL (70-99) CSF Color Colorless CSF Clarity Clear CSF WBC 0 CSF RBC 1 CSF Glucose 70 mg/dL (37-70) CSF Total Protein 115.5 mg/dL (15.0-45.0) Test 11/27/16 03:30 11/27/16 05:00 White Blood Count 21.5 x10^3/uL (4.0-11.0) Red Blood Count 5.62 x10^6/uL (4.30-5.70) Hemoglobin 15.6 g/dL (13.0-17.5) Hematocrit 47.4 % (39.0-53.0) Mean Corpuscular Volume 84 fL (79-100) Mean Corpuscular Hemoglobin 28 pg (25-35) Mean Corpuscular Hemoglobin Concent 33 g/dL (31-37) Red Cell Distribution Width 14.4 % (11.5-14.5) Platelet Count 382 x10^3/uL (140-400) Neutrophils (%) (Auto) 86 % (31-73) Lymphocytes (%) (Auto) 8 % (24-48) Monocytes (%) (Auto) 6 % (0-9) Eosinophils (%) (Auto) 0 % (0-3) Basophils (%) (Auto) 0 % (0-3) Neutrophils # (Auto) 18.4 x10^3uL (1.8-7.7) Lymphocytes # (Auto) 1.7 x10^3/uL (1.0-4.8) Monocytes # (Auto) 1.4 x10^3/uL (0.0-1.1) Eosinophils # (Auto) 0.0 x10^3/uL (0.0-0.7) Basophils # (Auto) 0.0 x10^3/uL (0.0-0.2) Prothrombin Time 17.5 SEC (11.7-14.0) Prothromb Time International Ratio 1.5 (0.8-1.1) Activated Partial Thromboplast Time 30 SEC (24-38) Fibrinogen 145 mg/dL (200-440) Sodium Level 140 mmol/L (136-145) Potassium Level 3.9 mmol/L (3.5-5.1) Chloride Level 106 mmol/L (98-107) Carbon Dioxide Level 23 mmol/L (21-32) Anion Gap 11 (6-14) Blood Urea Nitrogen 19 mg/dL (8-26) Creatinine 0.9 mg/dL (0.7-1.3) Estimated GFR (Cockcroft-Gault) 89.3 Glucose Level 131 mg/dL (70-99) Calcium Level 7.5 mg/dL (8.5-10.1) Magnesium Level 1.9 mg/dL (1.8-2.4) O2 Saturation 95 % (92-99) Arterial Blood pH 7.37 (7.35-7.45) Arterial Blood pCO2 at Patient Temp 36 mmHg (35-46) Arterial Blood pO2 at Patient Temp 78 mmHg (75-108) Arterial Blood HCO3 21 mmol/L (21-28) Arterial Blood Base Excess -4 mmol/L (-3-3) FiO2 28 CXR IMPRESSION: Interval increase in interstitial and alveolar opacities bilaterally which could be secondary to pulmonary edema although multi focal infiltrate is also within the differential. Linear structure seen at the right lung base. Could be secondary to a region of linear atelectasis but intraperitoneal free air can also have this appearance. Repeat upright chest x-ray or abdominal CT could be helpful to further evaluate. Micro CSF GRAM STAIN Final WBCS NONE SEEN ORGANISMS NONE SEEN URINE CULTURE RES 1 Preliminary No growth after 18-24 hours. Objective Assessment 1. Extreme weakness, does not appear to me that following any Guillain-[place] Syndrome distribution. Atypical presentation is possible. The concern is that the patient did have 2 weeks ago flu vaccine. - s/p LP: Opening pressure 18 cm/H2O, CSF colorless, clear, WBC 0, glucose 70 , T. protein 115.5 - RPR nonreactive 2. Leukocytosis, probably reactive. 3. Diabetes. 4. Hypertension. 5. Obesity. Plan Plan of Care Check procalcitonin supportive care f/u labs/cultures Await pulm eval Attending Co-Sign Attending Co-Sign The patient was seen and interviewed as well as examined at the bedside. The chart was reviewed. The case was discussed. Agree with the plan of care. RAYMUNDO KRUEGER APRN Nov 27, 2016 09:36 KARIE JONES MD Nov 27, 2016 13:30
--- NOTE | 2016-11-27 09:50 | RAD ---
Portable AP upright chest x-ray performed at 0516 Clinical indications: Reassess lung status. Lung infiltrates or pulmonary edema. Follow-up study. Comparison: Same day performed at 0017. IMPRESSION: Persistent linear atelectasis of the right lung base is seen along with a small right-sided pleural effusion which has not changed significantly. Perihilar pulmonary edema has improved. No pneumothorax is seen. The heart size and mediastinum are stable.
--- NOTE | 2016-11-27 10:22 | PDOC ---
Provider Note Provider Note [id number] acute hypoxemic resp fail 2/2 to neuromuscular disease ? generalized weakness obesity prob juany monitor closely in icu bipap see orders KALYN KHAN MD Nov 27, 2016 10:22
--- NOTE | 2016-11-27 10:52 | CONS ---
DATE OF CONSULTATION: 11/27/2016 REASON FOR CONSULTATION: I was asked to see this 50-year-old gentleman for acute respiratory failure. HISTORY OF PRESENT ILLNESS: He has minimal remote history of smoking. He is obese. He has snoring and excessive daytime sleepiness. Last Tuesday (today is Tuesday), he felt weakness. The weakness was more in the lower extremities. He was admitted to the hospital on Tuesday and was sent home on Tuesday night. His weakness did get worse. He was readmitted on 11/25. He does have shortness of breath. He uses accessory muscles. He was started on BiPAP. Currently, he is on 2 liters of oxygen. He has occasional cough, occasional nasal congestion. He denies chest pain. He denies any history of lung disease. He does not have nasal congestion or gastroesophageal reflux symptoms. He had LP, which protein was elevated. WBC was zero. He had plasmapheresis yesterday. His weakness is not worse than yesterday, but it is worse than Tuesday. PAST MEDICAL HISTORY: Hypertension, diabetes mellitus, gout and appendectomy. ALLERGIES: No known drug allergies. MEDICATIONS: Currently, he is on plasmapheresis, hydrochlorothiazide, Cozaar, Toprol, allopurinol, DuoNeb, metformin, levothyroxine and Pepcid. SOCIAL HISTORY: Minimal remote history of smoking. FAMILY HISTORY: There is no history of lung disease. REVIEW OF SYSTEMS: As mentioned as above, other systems otherwise negative. PHYSICAL EXAMINATION: GENERAL: This is an obese gentleman. He uses accessory muscles. VITAL SIGNS: His respiratory rate is 26, heart rate 74, blood pressure 118/75, temperature 98 and O2 saturation on 2 liters of oxygen is 96%. HEENT: Normocephalic, atraumatic. Pupils equal, round and reactive to light. There is shallow oropharynx. Nose is clear. NECK: There is no JVD, lymphadenopathy or thyromegaly. CARDIOVASCULAR: Regular rate and rhythm. PMI is not displaced. CHEST: Using accessory muscles. LUNGS: There are bibasilar crackles, dullness at the bases. ABDOMEN: Soft. Bowel sounds are good. There is no mass. EXTREMITIES: There is trace edema. LYMPHATICS: There is no lymphadenopathy. NEUROLOGIC: Alert and oriented. SKIN: Warm. LABORATORY DATA: I reviewed the following lab data: Chest x-ray shows right basilar atelectasis/small effusion. ABG this morning, pH of 7.37, pCO2 of 36 and pO2 of 78 on 2 liters of oxygen. WBC 21.5, hemoglobin 15.6 and platelets 382,000. Sodium 140, potassium 3.9, chloride 106, CO2 of 23, glucose 131, BUN 19 and creatinine 0.9. Total bilirubin 0.6, AST 36, ALT 40 and alkaline phosphatase 71. CK 438. Troponins less than 0.01. IMPRESSION: 1. Acute hypoxemic respiratory failure secondary to neuromuscular disease. There is a question of Guillain-[place]. The patient is receiving plasmapheresis versus others. Neurology is consulted. 2. Abnormal chest x-ray. 3. Atelectasis. 4. Leukocytosis. 5. Diabetes mellitus. 6. Hypertension. 7. Snoring, excessive daytime sleepiness and obesity, probable obstructive sleep apnea-hypopnea syndrome. PLAN AND RECOMMENDATIONS: 1. Titrate FiO2 to keep O2 saturation 92%. 2. We will support him with BiPAP, water setting was reviewed. We will monitor him very closely in the ICU. His respiratory status is marginal. He may require intubation. 3. Follow Neurology recommendation. 4. Continue plasmapheresis for now. 5. I have discussed obstructive sleep apnea-hypopnea syndrome; the importance of diagnosis and treatment; if untreated, increased cardiovascular and TELLER HEAD morbidity or mortality. I do recommend a split-night sleep study as an outpatient. 6. Start Lovenox for DVT prophylaxis. 7. Pepcid for stress ulcer prophylaxis. Thank you very much for allowing me to participate in care of this very nice gentleman. The findings and recommendations were discussed with the patient and RN. The patient understood and agreed to proceed with the plan. I have answered all of his questions. KALYN KHAN M.D. : [place] JOB#: [id number] / [id number]
[2016-11-27 10:53] LABS: PLT ESTIMATE ADEQUATE (ADEQUATE)
[2016-11-27] MEDS ORDERED: IV NORMAL SALINE 1000ML BAG 2,000 ML IV SCH (11:00)
[2016-11-27] MEDS ORDERED: ALBUMIN HUMAN 5% IV ONE (11:00)
[2016-11-27] MEDS ORDERED: HEPARIN for IV BOLUS 10,000 UNIT/10 ML VIAL. IV ONE (11:00)
--- NOTE | 2016-11-27 11:07 | PDOC ---
PROGRESS NOTES Chief Complaint Chief Complaint Generalized weakness Numbness in hands and feet PMHx: Diabetes, hypertension, gout, obesity, appendectomy, wrist and knee surgery. History of Present Illness History of Present Illness Pt seen at bedside in the ICU. CSF back with elevated protein and low cell count. Plasmapheresis following results of CSF. Respiratory distress following plasmapheresis-initiated on BiPAP. He is laying in bed on BiPAP currently. Complains of worsening numbness, and generalized weakness. Neuro, ID, Nephro, Pulm and cardio following. Await subspecialty input and continue with their plan of care. Will continue to monitor in the ICU Vitals Vitals Vital Signs Date Time Temp Pulse Resp B/P (MAP) Pulse Ox O2 Delivery O2 Flow Rate FiO2 11/27/16 10:00 74 14 118/75 (89) 98 BiPAP/CPAP 11/27/16 09:00 2.0 11/27/16 08:00 98.4 98.4 Physical Exam General: Alert, Oriented X3, Cooperative, No acute distress Heart: Regular rate, Normal S1, Normal S2, No murmurs Lungs: Other (tachypnic, and dyspnic) Abdomen: Soft, No tenderness Extremities: No clubbing, No cyanosis, No edema, Normal pulses, Other ( numbness of fingers and toes, diminished reflexes throughout) Skin: No rashes, No significant lesion Labs LABS Laboratory Tests Test 11/26/16 11:40 11/26/16 12:20 11/26/16 14:00 11/26/16 17:22 Erythrocyte Sedimentation Rate 25 (0-15) Prothrombin Time 13.0 SEC (11.7-14.0) Prothromb Time International Ratio 1.0 (0.8-1.1) Glucose (Fingerstick) 108 mg/dL (70-99) 126 mg/dL (70-99) CSF Color Colorless CSF Clarity Clear CSF WBC 0 CSF RBC 1 CSF Glucose 70 mg/dL (37-70) CSF Total Protein 115.5 mg/dL (15.0-45.0) Test 11/27/16 03:30 11/27/16 05:00 White Blood Count 21.5 x10^3/uL (4.0-11.0) Red Blood Count 5.62 x10^6/uL (4.30-5.70) Hemoglobin 15.6 g/dL (13.0-17.5) Hematocrit 47.4 % (39.0-53.0) Mean Corpuscular Volume 84 fL (79-100) Mean Corpuscular Hemoglobin 28 pg (25-35) Mean Corpuscular Hemoglobin Concent 33 g/dL (31-37) Red Cell Distribution Width 14.4 % (11.5-14.5) Platelet Count 382 x10^3/uL (140-400) Neutrophils (%) (Auto) 86 % (31-73) Lymphocytes (%) (Auto) 8 % (24-48) Monocytes (%) (Auto) 6 % (0-9) Eosinophils (%) (Auto) 0 % (0-3) Basophils (%) (Auto) 0 % (0-3) Neutrophils # (Auto) 18.4 x10^3uL (1.8-7.7) Lymphocytes # (Auto) 1.7 x10^3/uL (1.0-4.8) Monocytes # (Auto) 1.4 x10^3/uL (0.0-1.1) Eosinophils # (Auto) 0.0 x10^3/uL (0.0-0.7) Basophils # (Auto) 0.0 x10^3/uL (0.0-0.2) Segmented Neutrophils % 80 % (35-66) Band Neutrophils % 4 % (0-9) Lymphocytes % 8 % (24-48) Atypical Lymphocytes % (Manual) 1 % (0-0) Monocytes % 7 % (0-10) Platelet Estimate Adequate (ADEQUATE) Prothrombin Time 17.5 SEC (11.7-14.0) Prothromb Time International Ratio 1.5 (0.8-1.1) Activated Partial Thromboplast Time 30 SEC (24-38) Fibrinogen 145 mg/dL (200-440) Sodium Level 140 mmol/L (136-145) Potassium Level 3.9 mmol/L (3.5-5.1) Chloride Level 106 mmol/L (98-107) Carbon Dioxide Level 23 mmol/L (21-32) Anion Gap 11 (6-14) Blood Urea Nitrogen 19 mg/dL (8-26) Creatinine 0.9 mg/dL (0.7-1.3) Estimated GFR (Cockcroft-Gault) 89.3 Glucose Level 131 mg/dL (70-99) Calcium Level 7.5 mg/dL (8.5-10.1) Magnesium Level 1.9 mg/dL (1.8-2.4) O2 Saturation 95 % (92-99) Arterial Blood pH 7.37 (7.35-7.45) Arterial Blood pCO2 at Patient Temp 36 mmHg (35-46) Arterial Blood pO2 at Patient Temp 78 mmHg (75-108) Arterial Blood HCO3 21 mmol/L (21-28) Arterial Blood Base Excess -4 mmol/L (-3-3) FiO2 28 Review of Systems Review of Systems Gen: + fatigue, + generalized weakness, No fever or chills CV: No CP or palp Resp: + SOB, no wheeze Neuro: + numbness to hands and feet Assessment and Plan Assessmemt and Plan Problems Medical Problems: (1) Bilateral finger numbness Status: Acute (2) Numbness and tingling of both feet Status: Acute (3) Weakness Status: Acute Assessment Respiratory distress-On BiPAP in ICU Generalized weakness Numbness in hands and feet ?GB Diabetes, hypertension, gout, obesity Plan: Pt on BiPAP in the ICU continue Plasmapheresis pending subspecialty input Reviewed CXR Reviewed LP Home meds recheck labs pt/ot Neuro, pulm, nephro, and cardio following Appreciate subspec input-Will move forward with their plan of care Problems: Comment Review of Relevant I have reviewed the following items jada (where applicable) has been applied. Labs Laboratory Tests Test 11/25/16 14:20 11/25/16 14:43 11/25/16 18:18 11/25/16 21:00 White Blood Count 15.7 x10^3/uL (4.0-11.0) Red Blood Count 5.88 x10^6/uL (4.30-5.70) Hemoglobin 16.6 g/dL (13.0-17.5) Hematocrit 48.4 % (39.0-53.0) Mean Corpuscular Volume 82 fL (79-100) Mean Corpuscular Hemoglobin 28 pg (25-35) Mean Corpuscular Hemoglobin Concent 34 g/dL (31-37) Red Cell Distribution Width 13.8 % (11.5-14.5) Platelet Count 487 x10^3/uL (140-400) Neutrophils (%) (Auto) 81 % (31-73) Lymphocytes (%) (Auto) 12 % (24-48) Monocytes (%) (Auto) 7 % (0-9) Eosinophils (%) (Auto) 0 % (0-3) Basophils (%) (Auto) 1 % (0-3) Neutrophils # (Auto) 12.7 x10^3uL (1.8-7.7) Lymphocytes # (Auto) 1.9 x10^3/uL (1.0-4.8) Monocytes # (Auto) 1.1 x10^3/uL (0.0-1.1) Eosinophils # (Auto) 0.0 x10^3/uL (0.0-0.7) Basophils # (Auto) 0.1 x10^3/uL (0.0-0.2) Sodium Level 137 mmol/L (136-145) Potassium Level 4.2 mmol/L (3.5-5.1) Chloride Level 99 mmol/L (98-107) Carbon Dioxide Level 27 mmol/L (21-32) Anion Gap 11 (6-14) Blood Urea Nitrogen 22 mg/dL (8-26) Creatinine 1.2 mg/dL (0.7-1.3) Estimated GFR (Cockcroft-Gault) 64.1 BUN/Creatinine Ratio 18 (6-20) Glucose Level 108 mg/dL (70-99) Calcium Level 10.3 mg/dL (8.5-10.1) Total Bilirubin 0.6 mg/dL (0.2-1.0) Aspartate Amino Transf (AST/SGOT) 36 U/L (15-37) Alanine Aminotransferase (ALT/SGPT) 40 U/L (16-63) Alkaline Phosphatase 71 U/L (46-116) Troponin I Quantitative < 0.017 ng/mL (0.000-0.055) Total Protein 8.6 g/dL (6.4-8.2) Albumin 4.2 g/dL (3.4-5.0) Albumin/Globulin Ratio 1.0 (1.0-1.7) Ethyl Alcohol Level < 10 mg/dL (0-10) RPR Titer Additional Testing Non reactive (Non Reactive) Glucose (Fingerstick) 118 mg/dL (70-99) Urine Color Yellow Urine Clarity Clear Urine pH 6.0 Urine Specific Justice 1.025 Urine Protein Negative mg/dL (NEG-TRACE) Urine Glucose (UA) Negative mg/dL (NEG) Urine Ketones (Stick) 15 mg/dL (NEG) Urine Blood Trace (NEG) Urine Nitrite Negative (NEG) Urine Bilirubin Negative (NEG) Urine Urobilinogen Dipstick 1.0 mg/dL (0.2 mg/dL) Urine Leukocyte Esterase Trace (NEG) Urine RBC Occ /HPF (0-2) Urine WBC Occ /HPF (0-4) Urine Squamous Epithelial Cells Occ /LPF Urine Bacteria 0 /HPF (0-FEW) Urine Mucus Slight /LPF Urine Opiates Screen Neg (NEG) Urine Methadone Screen Neg (NEG) Urine Barbiturates Neg (NEG) Urine Phencyclidine Screen Neg (NEG) Urine Amphetamine/Methamphetamine Neg (NEG) Urine Benzodiazepines Screen Neg (NEG) Urine Cocaine Screen Neg (NEG) Urine Cannabinoids Screen Neg (NEG) Urine Ethyl Alcohol Neg (NEG) Nasal Screen MRSA (PCR) Negative (Negative) Test 11/26/16 04:00 11/26/16 07:45 11/26/16 11:40 11/26/16 12:20 White Blood Count 14.2 x10^3/uL (4.0-11.0) Red Blood Count 5.29 x10^6/uL (4.30-5.70) Hemoglobin 14.7 g/dL (13.0-17.5) Hematocrit 43.4 % (39.0-53.0) Mean Corpuscular Volume 82 fL (79-100) Mean Corpuscular Hemoglobin 28 pg (25-35) Mean Corpuscular Hemoglobin Concent 34 g/dL (31-37) Red Cell Distribution Width 14.1 % (11.5-14.5) Platelet Count 409 x10^3/uL (140-400) Neutrophils (%) (Auto) 80 % (31-73) Lymphocytes (%) (Auto) 11 % (24-48) Monocytes (%) (Auto) 8 % (0-9) Eosinophils (%) (Auto) 0 % (0-3) Basophils (%) (Auto) 0 % (0-3) Neutrophils # (Auto) 11.4 x10^3uL (1.8-7.7) Lymphocytes # (Auto) 1.6 x10^3/uL (1.0-4.8) Monocytes # (Auto) 1.1 x10^3/uL (0.0-1.1) Eosinophils # (Auto) 0.0 x10^3/uL (0.0-0.7) Basophils # (Auto) 0.0 x10^3/uL (0.0-0.2) Sodium Level 138 mmol/L (136-145) Potassium Level 3.4 mmol/L (3.5-5.1) Chloride Level 101 mmol/L (98-107) Carbon Dioxide Level 25 mmol/L (21-32) Anion Gap 12 (6-14) Blood Urea Nitrogen 22 mg/dL (8-26) Creatinine 1.0 mg/dL (0.7-1.3) Estimated GFR (Cockcroft-Gault) 79.1 Glucose Level 110 mg/dL (70-99) Calcium Level 9.0 mg/dL (8.5-10.1) Creatine Kinase 438 U/L (39-308) Vitamin B12 Level 377 pg/mL (247-911) Thyroid Stimulating Hormone (TSH) 2.899 uIU/mL (0.358-3.74) Glucose (Fingerstick) 116 mg/dL (70-99) 108 mg/dL (70-99) Erythrocyte Sedimentation Rate 25 (0-15) Prothrombin Time 13.0 SEC (11.7-14.0) Prothromb Time International Ratio 1.0 (0.8-1.1) Test 11/26/16 14:00 11/26/16 17:22 11/27/16 03:30 11/27/16 05:00 CSF Color Colorless CSF Clarity Clear CSF WBC 0 CSF RBC 1 CSF Glucose 70 mg/dL (37-70) CSF Total Protein 115.5 mg/dL (15.0-45.0) Glucose (Fingerstick) 126 mg/dL (70-99) White Blood Count 21.5 x10^3/uL (4.0-11.0) Red Blood Count 5.62 x10^6/uL (4.30-5.70) Hemoglobin 15.6 g/dL (13.0-17.5) Hematocrit 47.4 % (39.0-53.0) Mean Corpuscular Volume 84 fL (79-100) Mean Corpuscular Hemoglobin 28 pg (25-35) Mean Corpuscular Hemoglobin Concent 33 g/dL (31-37) Red Cell Distribution Width 14.4 % (11.5-14.5) Platelet Count 382 x10^3/uL (140-400) Neutrophils (%) (Auto) 86 % (31-73) Lymphocytes (%) (Auto) 8 % (24-48) Monocytes (%) (Auto) 6 % (0-9) Eosinophils (%) (Auto) 0 % (0-3) Basophils (%) (Auto) 0 % (0-3) Neutrophils # (Auto) 18.4 x10^3uL (1.8-7.7) Lymphocytes # (Auto) 1.7 x10^3/uL (1.0-4.8) Monocytes # (Auto) 1.4 x10^3/uL (0.0-1.1) Eosinophils # (Auto) 0.0 x10^3/uL (0.0-0.7) Basophils # (Auto) 0.0 x10^3/uL (0.0-0.2) Segmented Neutrophils % 80 % (35-66) Band Neutrophils % 4 % (0-9) Lymphocytes % 8 % (24-48) Atypical Lymphocytes % (Manual) 1 % (0-0) Monocytes % 7 % (0-10) Platelet Estimate Adequate (ADEQUATE) Prothrombin Time 17.5 SEC (11.7-14.0) Prothromb Time International Ratio 1.5 (0.8-1.1) Activated Partial Thromboplast Time 30 SEC (24-38) Fibrinogen 145 mg/dL (200-440) Sodium Level 140 mmol/L (136-145) Potassium Level 3.9 mmol/L (3.5-5.1) Chloride Level 106 mmol/L (98-107) Carbon Dioxide Level 23 mmol/L (21-32) Anion Gap 11 (6-14) Blood Urea Nitrogen 19 mg/dL (8-26) Creatinine 0.9 mg/dL (0.7-1.3) Estimated GFR (Cockcroft-Gault) 89.3 Glucose Level 131 mg/dL (70-99) Calcium Level 7.5 mg/dL (8.5-10.1) Magnesium Level 1.9 mg/dL (1.8-2.4) O2 Saturation 95 % (92-99) Arterial Blood pH 7.37 (7.35-7.45) Arterial Blood pCO2 at Patient Temp 36 mmHg (35-46) Arterial Blood pO2 at Patient Temp 78 mmHg (75-108) Arterial Blood HCO3 21 mmol/L (21-28) Arterial Blood Base Excess -4 mmol/L (-3-3) FiO2 28 Laboratory Tests Test 11/26/16 11:40 11/26/16 12:20 11/26/16 14:00 11/26/16 17:22 Erythrocyte Sedimentation Rate 25 (0-15) Prothrombin Time 13.0 SEC (11.7-14.0) Prothromb Time International Ratio 1.0 (0.8-1.1) Glucose (Fingerstick) 108 mg/dL (70-99) 126 mg/dL (70-99) CSF Color Colorless CSF Clarity Clear CSF WBC 0 CSF RBC 1 CSF Glucose 70 mg/dL (37-70) CSF Total Protein 115.5 mg/dL (15.0-45.0) Test 11/27/16 03:30 11/27/16 05:00 White Blood Count 21.5 x10^3/uL (4.0-11.0) Red Blood Count 5.62 x10^6/uL (4.30-5.70) Hemoglobin 15.6 g/dL (13.0-17.5) Hematocrit 47.4 % (39.0-53.0) Mean Corpuscular Volume 84 fL (79-100) Mean Corpuscular Hemoglobin 28 pg (25-35) Mean Corpuscular Hemoglobin Concent 33 g/dL (31-37) Red Cell Distribution Width 14.4 % (11.5-14.5) Platelet Count 382 x10^3/uL (140-400) Neutrophils (%) (Auto) 86 % (31-73) Lymphocytes (%) (Auto) 8 % (24-48) Monocytes (%) (Auto) 6 % (0-9) Eosinophils (%) (Auto) 0 % (0-3) Basophils (%) (Auto) 0 % (0-3) Neutrophils # (Auto) 18.4 x10^3uL (1.8-7.7) Lymphocytes # (Auto) 1.7 x10^3/uL (1.0-4.8) Monocytes # (Auto) 1.4 x10^3/uL (0.0-1.1) Eosinophils # (Auto) 0.0 x10^3/uL (0.0-0.7) Basophils # (Auto) 0.0 x10^3/uL (0.0-0.2) Segmented Neutrophils % 80 % (35-66) Band Neutrophils % 4 % (0-9) Lymphocytes % 8 % (24-48) Atypical Lymphocytes % (Manual) 1 % (0-0) Monocytes % 7 % (0-10) Platelet Estimate Adequate (ADEQUATE) Prothrombin Time 17.5 SEC (11.7-14.0) Prothromb Time International Ratio 1.5 (0.8-1.1) Activated Partial Thromboplast Time 30 SEC (24-38) Fibrinogen 145 mg/dL (200-440) Sodium Level 140 mmol/L (136-145) Potassium Level 3.9 mmol/L (3.5-5.1) Chloride Level 106 mmol/L (98-107) Carbon Dioxide Level 23 mmol/L (21-32) Anion Gap 11 (6-14) Blood Urea Nitrogen 19 mg/dL (8-26) Creatinine 0.9 mg/dL (0.7-1.3) Estimated GFR (Cockcroft-Gault) 89.3 Glucose Level 131 mg/dL (70-99) Calcium Level 7.5 mg/dL (8.5-10.1) Magnesium Level 1.9 mg/dL (1.8-2.4) O2 Saturation 95 % (92-99) Arterial Blood pH 7.37 (7.35-7.45) Arterial Blood pCO2 at Patient Temp 36 mmHg (35-46) Arterial Blood pO2 at Patient Temp 78 mmHg (75-108) Arterial Blood HCO3 21 mmol/L (21-28) Arterial Blood Base Excess -4 mmol/L (-3-3) FiO2 28 Microbiology 11/26/16 Gram Stain - Final, Complete 11/25/16 Urine Culture - Preliminary, Resulted 11/25/16 Urine Culture Result 1 (ANILA) - Preliminary, Resulted Medications Current Medications Lorazepam (Ativan) 2 mg 1X ONCE IV Last administered on 11/25/16t 16:15; Start 11/25/16 at 16:15; Stop 11/25/16 at 16:16; Status DC Lorazepam (Ativan) 2 mg 1X ONCE IV Last administered on 11/25/16 16:47; Start 11/25/16 at 16:45; Stop 11/25/16 at 16:46; Status DC Lidocaine HCl 20 ml STK-MED ONCE .ROUTE ; Start 11/25/16 at 19:13; Stop at 19:14; Status DC Ondansetron HCl (Zofran) 4 mg PRN Q8HRS PRN IV NAUSEA/VOMITING; Start at 20:45; Stop 11/26/16 at 20:44; Status DC Sodium Chloride 1,000 ml @ 150 mls/hr Q6H40M IV Last administered on 11:34; Start 11/25/16 at 20:42; Stop 11/26/16 at 20:41; Status DC Potassium Chloride (Klor-Con) 40 meq 1X ONCE PO Last administered on 09:14; Start 11/26/16 at 07:45; Stop 11/26/16 at 07:46; Status DC Lidocaine/Sodium Bicarbonate (Buffered Lidocaine 1%) 20 ml 1X ONCE IJ Last administered on 11/26/16 14:14; Start 11/26/16 at 12:45; Stop 11/26/16 at 12 :46; Status DC Lidocaine/Sodium Bicarbonate (Buffered Lidocaine 1%) 3 ml 1X ONCE IJ Last administered on 11/26/16 16:15; Start 11/26/16 at 16:15; Stop 11/26/16 at 16 :16; Status DC Heparin Sodium/ Sodium Chloride 60 unit 1X ONCE IV Last administered on 16:15; Start 11/26/16 at 16:15; Stop 11/26/16 at 16:16; Status DC Heparin Sodium (Porcine) (Heparin Sodium) 2,500 unit 1X ONCE INT CAT Last administered on 11/26/16 16:15; Start 11/26/16 at 16:15; Stop 11/26/16 at 16 :16; Status DC Lidocaine/Sodium Bicarbonate (Buffered Lidocaine 1%) 20 ml STK-MED ONCE IJ ; Start 11/26/16 at 16:22; Stop 11/26/16 at 16:23; Status DC Heparin Sodium (Porcine) (Heparin Sodium) 10,000 unit STK-MED ONCE .ROUTE ; Start 11/26/16 at 16:22; Stop 11/26/16 at 16:23; Status DC Heparin Sodium/ Sodium Chloride 500 ml @ As Directed STK-MED ONCE .ROUTE ; Start 11/26/16 at 16:22; Stop 11/26/16 at 16:23; Status DC Labetalol HCl (Normodyne) 10 mg PRN Q2HR PRN IVP HYPERTENSION, SEE COMMENTS Last administered on 11/27/16 09:21; Start 11/26/16 at 17:30 Allopurinol (Zyloprim) 100 mg DAILY PO Last administered on 11/27/16 09:05; Start 11/27/16 at 09:00 Benzonatate (Tessalon Perle) 100 mg TID PO Last administered on 11/27/16 09: 04; Start 11/26/16 at 21:00 Levothyroxine Sodium (Synthroid) 50 mcg DAILY07 PO Last administered on 08:03; Start 11/27/16 at 07:00 Metformin HCl (Glucophage) 850 mg DAILYWBKFT PO Last administered on 08:03; Start 11/27/16 at 08:00 Metoprolol Succinate (Toprol Xl) 25 mg DAILY PO Last administered on 09:05; Start 11/27/16 at 09:00 Losartan Potassium (Cozaar) 100 mg DAILY PO Last administered on 11/27/16 09: 04; Start 11/27/16 at 09:00 Famotidine (Pepcid) 20 mg BID PO Last administered on 11/27/16 09:05; Start 11/26/16 at 21:00 Hydrochlorothiazide (Microzide) 12.5 mg DAILY PO Last administered on 09:04; Start 11/27/16 at 09:00 Albumin Human/ Albumin Human 4,600 ml @ 766.667 mls/hr 1X ONCE IV ; Start at 19:45; Stop 11/26/16 at 19:45; Status DC Sodium Chloride 2,200 ml @ 366.667 mls/hr Q6H IV Last administered on 22:30; Start 11/26/16 at 19:45; Stop 11/27/16 at 01:44; Status DC Albumin Human/ Albumin Human 4,600 ml @ 766.667 mls/hr 1X ONCE IV Last administered on 11/26/16 19:45; Start 11/26/16 at 19:45; Stop 11/27/16 at 01 :44; Status DC Heparin Sodium (Porcine) (Heparin Sodium) 5,000 unit 1X ONCE IV ; Start at 19:45; Stop 11/26/16 at 19:46; Status DC Morphine Sulfate 2 mg PRN Q2HR PRN IV MODERATE PAIN Last administered on 21:11; Start 11/26/16 at 20:45 Fentanyl Citrate (Fentanyl 2ml Vial) 50 mcg PRN Q2HR PRN IV SEVERE PAIN; Start 11/26/16 at 20:45 Acetaminophen/ Hydrocodone Bitart (Lortab 5/325) 1 tab PRN Q4HRS PRN PO PAIN; Start 11/26/16 at 20:45 Acetaminophen/ Hydrocodone Bitart (Lortab 10/325) 1 tab PRN Q6HRS PRN PO SEVERE PAIN Last administered on 11/26/16 21:54; Start 11/26/16 at 20:45 Lorazepam (Ativan) 0.5 mg PRN Q8HRS PRN PO ANXIETY / AGITATION Last administered on 11/26/16 21:37; Start 11/26/16 at 21:15 Lorazepam (Ativan) 1 mg PRN Q4HRS PRN IV ANXIETY / AGITATION Last administered on 11/27/16 00:24; Start 11/26/16 at 21:15 Ondansetron HCl (Zofran) 4 mg PRN Q6HRS PRN IV NAUSEA/VOMITING 1ST CHOICE; Start 11/26/16 at 23:00 Prochlorperazine Edisylate (Compazine) 10 mg PRN Q6HRS PRN IV NAUSEA/VOMITING 2ND CHOICE; Start 11/26/16 at 23:00 Albuterol Sulfate (Ventolin Neb Soln) 2.5 mg 1X ONCE NEB Last administered on 11/26/16 23:43; Start 11/26/16 at 23:45; Stop 11/26/16 at 23:46; Status DC Albuterol/ Ipratropium (Duoneb) 3 ml RTQID NEB Last administered on 11/27/16 08:21; Start 11/27/16 at 08:00 Furosemide (Lasix) 20 mg 1X ONCE IVP Last administered on 11/27/16 00:24; Start 11/27/16 at 00:30; Stop 11/27/16 at 00:31; Status DC Albumin Human 4,000 ml @ 666.667 mls/hr 1X ONCE IV ; Start 11/27/16 at 11:00 ; Stop 11/27/16 at 16:59 Sodium Chloride 2,000 ml @ 333.333 mls/hr Q6H IV ; Start 11/27/16 at 11:00 Enoxaparin Sodium (Lovenox 60mg Syringe) 60 mg Q12HR SQ ; Start 11/27/16 at 11: 00 Heparin Sodium (Porcine) (Heparin Sodium) 5,000 unit 1X ONCE IV ; Start at 11:00; Stop 11/27/16 at 11:01 Active Scripts Active Reported Tessalon Perle (Benzonatate) 100 Mg Capsule 1 Cap PO TID Metformin Hcl 850 Mg Tablet 750 Mg PO DAILY Metoprolol Succinate ( Xl ) (Metoprolol Succinate) 25 Mg Tab.er.24h 1 Tab PO DAILY Losartan-Hctz 100-12.5 Mg Tab (Losartan/Hydrochlorothiazide) 1 Each Tablet 1 Tab PO DAILY Allopurinol 100 Mg Tablet 1 Tab PO DAILY Synthroid (Levothyroxine Sodium) 50 Mcg Tablet 1 Tab PO DAILY Zantac (Ranitidine Hcl) 150 Mg Tablet 1 Tab PO BID Vitals/I & O Vital Sign - Last 24 Hours 11/26/16 11/26/16 11/26/16 11/26/16 11:00 12:00 12:00 13:00 Temp 98.0 98.0 98.0 98.0 Pulse 85 101 106 Resp 20 20 24 B/P (MAP) 155/86 (109) 183/96 (125) 187/87 (120) Pulse Ox 93 94 94 O2 Delivery Room Air Room Air Room Air Room Air 11/26/16 11/26/16 11/26/16 11/26/16 14:00 15:00 16:00 17:00 Temp 98.0 98.0 Pulse 110 96 90 92 Resp 24 26 26 20 B/P (MAP) 151/72 (98) 176/97 (123) 189/100 (129) 188/90 (122) Pulse Ox 94 94 94 93 O2 Delivery Room Air Room Air Room Air Room Air 11/26/16 11/26/16 11/26/16 11/26/16 17:01 17:43 17:50 18:00 Temp 97.9 97.9 Pulse 101 82 Resp 20 20 B/P (MAP) 183/96 (125) 188/90 168/86 (113) Pulse Ox 94 94 O2 Delivery Room Air Room Air Room Air 11/26/16 11/26/16 11/26/16 11/26/16 19:00 20:00 20:22 21:00 Temp 98.1 98.1 Pulse 80 80 94 Resp 22 23 20 B/P (MAP) 175/80 (111) 186/97 (126) 188/97 (127) Pulse Ox 94 97 96 O2 Delivery Nasal Cannula Nasal Cannula Room Air Nasal Cannula O2 Flow Rate 2.0 2.0 2.0 11/26/16 11/26/16 11/26/16 11/26/16 21:41 21:54 22:00 22:54 Pulse 94 Resp 21 20 B/P (MAP) 159/84 (109) Pulse Ox 94 96 96 O2 Delivery Room Air Nasal Cannula Nasal Cannula Room Air O2 Flow Rate 2.0 2.0 2.0 2.0 11/26/16 11/26/16 11/26/16 11/27/16 23:00 23:43 23:59 00:00 Temp 97.6 97.6 Pulse 94 104 Resp 20 20 B/P (MAP) 168/97 (120) 154/94 (114) Pulse Ox 96 94 94 O2 Delivery BiPAP/CPAP Nasal Cannula Bi-pap Nasal Cannula O2 Flow Rate 2.0 2.0 11/27/16 11/27/16 11/27/16 11/27/16 00:15 01:00 01:04 02:00 Pulse 98 101 98 Resp 20 20 B/P (MAP) 184/80 (114) 190/90 128/80 (96) Pulse Ox 97 92 94 O2 Delivery BiPAP/CPAP Nasal Cannula Nasal Cannula O2 Flow Rate 2.0 2.0 11/27/16 11/27/16 11/27/16 11/27/16 03:00 04:00 04:15 04:51 Temp 98.6 98.6 Pulse 94 86 99 Resp 20 20 B/P (MAP) 128/80 (96) 164/77 (106) 207/90 Pulse Ox 96 93 O2 Delivery Nasal Cannula Nasal Cannula Nasal Cannula O2 Flow Rate 2.0 2.0 2.0 11/27/16 11/27/16 11/27/16 11/27/16 05:00 06:00 07:00 08:00 Temp 98.4 98.4 Pulse 84 84 92 81 Resp 20 20 24 15 B/P (MAP) 142/74 (96) 146/95 (112) 161/97 (118) 156/87 (110) Pulse Ox 94 94 93 97 O2 Delivery Nasal Cannula Nasal Cannula Nasal Cannula BiPAP/CPAP O2 Flow Rate 2.0 2.0 2.0 11/27/16 11/27/16 11/27/16 11/27/16 08:00 08:22 09:00 09:04 Pulse 102 101 Resp 27 B/P (MAP) 210/109 (142) 210/109 Pulse Ox 96 95 O2 Delivery Nasal Cannula Nasal Cannula Nasal Cannula O2 Flow Rate 2.0 2.0 2.0 11/27/16 11/27/16 11/27/16 09:05 09:21 10:00 Pulse 102 97 74 Resp 14 B/P (MAP) 210/109 210/109 118/75 (89) Pulse Ox 98 O2 Delivery BiPAP/CPAP Intake and Output 11/27/16 11/27/16 11/28/16 15:00 23:00 07:00 Output Total 365 ml Balance -365 ml JUAN LAZO III DO Nov 27, 2016 11:07
[2016-11-27] MEDS ORDERED: PERFLUTREN PROTEIN-A MICROSPHR 0.22 MG/ML 3 ML VIAL. IV ONE (11:30)
[2016-11-27] MEDS ORDERED: CALCIUM GLUCONATE 2,000 MG in IV NORMAL SALINE 100ML 100 ML IV ONE (13:00)
--- NOTE | 2016-11-27 14:00 | CARD ---
APPROVED REPORT EXAM: Two-dimensional echocardiogram with contrast. Other Information Quality : FairHR: 83bpm INDICATION LV Function:Systolic Echo Enhancing Agent Indication: Endocardial border delineation Agent/Amount Used: Optison 3mL RISK FACTORS Obesity Diabetes 2D DIMENSIONS Left Atrium(2D)4.0 (1.6-4.0cm)IVSd1.3 (0.7-1.1cm) Aortic Root(2D)3.4 (2.0-3.7cm)LVDd5.0 (3.9-5.9cm) LVOT Diameter2.3 (1.8-2.4cm)PWd1.3 (0.7-1.1cm) LVDs3.2 (2.5-4.0cm)FS (%) 36.5 % SV76.8 mlLVEF(%)66.0 (>50%) Aortic Valve AoV Peak Raza.160.3cm/sAoV VTI28.0cm AO Peak GR.10.3mmHgLVOT Peak Raza.103.5cm/s AO Mean GR.7mmHgAVA (VMAX)2.76cm2 Mitral Valve MV E Wxbqlysf88.5cm/sMV DECEL [id number] MV A Arfbyjyz54.1cm/sE/A Ratio1.1 Pulmonary Valve PV Peak Vahjhsqm791.6cm/s LEFT VENTRICLE Technically difficult study. The left ventricle is normal size. There is mild to moderate concentric left ventricular hypertrophy. Left ventricle systolic function is normal. The Ejection Fraction is 60 -65%. Transmitral Doppler flow pattern is Grade I-abnormal relaxation pattern. RIGHT VENTRICLE The right ventricle is normal size. The right ventricular systolic function is normal. ATRIA The left atrium size is normal. The right atrium size is normal. Interatrial septum not well visualiz ed. AORTIC VALVE The aortic valve is thickened but opens well. Doppler and Color Flow revealed no significant aortic r egurgitation. There is no significant aortic valvular stenosis. MITRAL VALVE The mitral valve is not well visualized. There is no mitral valve stenosis. Doppler and Color Flow re vealed trace mitral valve regurgitation noted. TRICUSPID VALVE TV not well visualized. Doppler and Color Flow revealed no tricuspid valve regurgitation noted. There is no tricuspid valve stenosis. PULMONIC VALVE PV not well visualized. Doppler and Color Flow revealed no pulmonic valvular regurgitation. There is no pulmonic valvular stenosis. GREAT VESSELS The aortic root is normal in size. Pulmonary vein not well visualized. The IVC was not visualized. PERICARDIAL EFFUSION There is no evidence of significant pericardial effusion. Critical Notification Critical Value: No <Conclusion> Technically difficult study. The left ventricle is normal size. Left ventricle systolic function is normal. The Ejection Fraction is 60-65%. There is mild to moderate concentric left ventricular hypertrophy. There is no significant aortic valvular stenosis. Doppler and Color Flow revealed no significant aortic regurgitation. Doppler and Color Flow revealed trace mitral valve regurgitation noted. Doppler and Color Flow revealed no tricuspid valve regurgitation noted. There is no evidence of significant pericardial effusion.
--- NOTE | 2016-11-27 15:02 | PDOC ---
PROGRESS NOTES Assessment Assessment Generalized weakness x 5 days before admission. Numbness in distal extremities x 5 days before admission. GBS. Leukocytosis. DM HTN Gout Degenerative C-spine disease. Obesity. Search occult malignancy. RECOMMENDATIONS/PLAN: Plasma exchange, 3 to 5 days depends on improvement. Day 2 on 11/27, first exchange was on 11/27/16. Consulted nephrology. Treat medical diseases. OT/PT. C-spine MRI w/o contrast on 11/25/16: mild stenosis and degenerative changes. No cord abnormality found. CSF on 11/26/16: WBC 0, protein 115.5. Gram stain: no organism. HISTORY OF THE PRESENT ILLNESS: 50-y-old male patient with above medical diseases developed symptoms of numbness in his fingers and toes and generalized weakness in all extremities for about 5 days. He was seen at ER about 3 days ago and was discharged home to follow up with his PCP. His symptoms became worse stating he was unable to stand or walk, so he went to ER again on 11/25/16. LP was attempted in the ER but was not successful. No cranial nerve deficits. No urinary or bowel dysfunction. His symptoms of numbness and tingling improved on 11/27. His strength improved as well. PAST MEDICAL HISTORY: Please see above. PAST SURGERY HISTORY: Appendectomy ALLERGY: NKDA MEDICATIONS: Refer to [facility] FAMILY HISTORY: DM SOCIAL HISTORY: Lives at home. Denies current smoking, drinking, and illicit drug use. REVIEW OF SYSTEMS: Constitutional: Near morbid obesity. Head: No recent traumatic brain or head injury. Skin: No edema, or rash. Ear: No infection. Eyes: No vision loss or color blindness. Nose: No bleeding or purulent discharges. Hearing: No hearing decrease. Neck: No injury. Cardiac: HTN. Pulmonary: No COPD. GI: No GI ulcer, GI bleeding. Urinary/genital: No dysuria, incontinence, urinary retention. Endocrinologic: Diabetes Mellitus, morbid obesity. Skeletomuscular: ]Generalized weakness this time. Neurological: see HP. Psychiatric: Denies drug use/abuse. Otherwise, not [id number] review of systems. PHYSICAL EXAMINATION: General appearance is in subacute distress. HEENT: Normocephalic and nontraumatic. Eyes, nose, ears, and throat are unremarkable. Neck is supple. No lymphadenopathy. No crepitus. Cardiovascular: S1, S2, regular rate and rhythm. Pulmonary: Clear to auscultation bilaterally. Abdomen: Bowel sounds are positive. Extremities: No rash, lesions, or edema. No restriction of range of motion NEUROLOGICAL EXAMINATION: Alert Oriented to time, place and person. PERRL. EOMI. CN: no focal findings. Muscle tone: within normal. Muscle strength: 4 to 4+ DTR: 2 UE, 1 knee ? Plantar reflex: Flexor response bilaterally Gait: not examined in chair. Sensory exam: no abnormal findings found. No cerebellar signs elicited. F-T-N test fine. Objective Objective Vital Signs Date Time Temp Pulse Resp B/P (MAP) Pulse Ox O2 Delivery O2 Flow Rate FiO2 11/27/16 14:00 76 20 198/84 (122) 97 Nasal Cannula 2.0 11/27/16 13:00 98.4 98.4 Intake and Output 11/28/16 07:00 Output Total 840 ml Balance -840 ml Output Urine Total 840 ml Vitals Signs Vitals VS - Last 72 Hours, by Label Date Time Temp Pulse Resp B/P (MAP) Pulse Ox O2 Delivery O2 Flow Rate FiO2 11/27/16 14:00 76 20 198/84 (122) 97 Nasal Cannula 2.0 11/27/16 13:00 98.4 78 19 136/72 (93) 95 BiPAP/CPAP 98.4 11/27/16 12:00 Nasal Cannula 2.0 11/27/16 12:00 73 13 175/92 (119) 98 Nasal Cannula 2.0 11/27/16 11:49 96 Nasal Cannula 2.0 11/27/16 11:46 89 186/114 11/27/16 11:00 80 22 178/105 (129) 96 Nasal Cannula 2.0 11/27/16 10:00 74 14 118/75 (89) 98 BiPAP/CPAP 11/27/16 09:21 97 210/109 11/27/16 09:05 102 210/109 11/27/16 09:04 101 210/109 11/27/16 09:00 102 27 210/109 (142) 95 Nasal Cannula 2.0 11/27/16 08:22 96 Nasal Cannula 2.0 11/27/16 08:00 Nasal Cannula 2.0 11/27/16 08:00 98.4 81 15 156/87 (110) 97 BiPAP/CPAP 98.4 11/27/16 07:00 92 24 161/97 (118) 93 Nasal Cannula 2.0 11/27/16 06:00 84 20 146/95 (112) 94 Nasal Cannula 2.0 11/27/16 05:00 84 20 142/74 (96) 94 Nasal Cannula 2.0 11/27/16 04:51 99 207/90 11/27/16 04:15 Nasal Cannula 2.0 11/27/16 04:00 98.6 86 20 164/77 (106) 93 Nasal Cannula 2.0 98.6 11/27/16 03:00 94 20 128/80 (96) 96 Nasal Cannula 2.0 11/27/16 02:00 98 20 128/80 (96) 94 Nasal Cannula 2.0 11/27/16 01:04 101 190/90 11/27/16 01:00 98 20 184/80 (114) 92 Nasal Cannula 2.0 11/27/16 00:15 97 BiPAP/CPAP 11/27/16 00:00 97.6 104 20 154/94 (114) 94 Nasal Cannula 2.0 97.6 11/26/16 23:59 Bi-pap 11/26/16 23:43 94 Nasal Cannula 2.0 11/26/16 23:00 94 20 168/97 (120) 96 BiPAP/CPAP 11/26/16 22:54 96 Room Air 2.0 11/26/16 22:00 94 20 159/84 (109) 96 Nasal Cannula 2.0 11/26/16 21:54 21 Nasal Cannula 2.0 11/26/16 21:41 94 Room Air 2.0 11/26/16 21:00 94 20 188/97 (127) 96 Nasal Cannula 2.0 11/26/16 20:22 Room Air 11/26/16 20:00 98.1 80 23 186/97 (126) 97 Nasal Cannula 2.0 98.1 11/26/16 19:00 80 22 175/80 (111) 94 Nasal Cannula 2.0 11/26/16 18:00 97.9 20 168/86 (113) 94 Room Air 97.9 11/26/16 17:50 82 188/90 11/26/16 17:43 Room Air 11/26/16 17:01 101 20 183/96 (125) 94 Room Air 11/26/16 17:00 98.0 92 20 188/90 (122) 93 Room Air 98.0 11/26/16 16:00 90 26 189/100 (129) 94 Room Air 11/26/16 15:00 96 26 176/97 (123) 94 Room Air 11/26/16 14:00 110 24 151/72 (98) 94 Room Air 11/26/16 13:00 106 24 187/87 (120) 94 Room Air 11/26/16 12:00 Room Air 11/26/16 12:00 98.0 101 20 183/96 (125) 94 Room Air 98.0 11/26/16 11:00 98.0 85 20 155/86 (109) 93 Room Air 98.0 11/26/16 10:00 98.0 113 20 167/102 (123) 93 Room Air 98.0 11/26/16 09:00 98.0 81 20 153/86 (108) 93 Room Air 98.0 11/26/16 08:00 Room Air 11/26/16 07:00 98.5 86 20 183/93 (123) 93 Room Air 98.5 Laboratory Laboratory Laboratory Tests Test 11/26/16 17:22 11/27/16 03:30 11/27/16 05:00 Glucose (Fingerstick) 126 mg/dL (70-99) White Blood Count 21.5 x10^3/uL (4.0-11.0) Red Blood Count 5.62 x10^6/uL (4.30-5.70) Hemoglobin 15.6 g/dL (13.0-17.5) Hematocrit 47.4 % (39.0-53.0) Mean Corpuscular Volume 84 fL (79-100) Mean Corpuscular Hemoglobin 28 pg (25-35) Mean Corpuscular Hemoglobin Concent 33 g/dL (31-37) Red Cell Distribution Width 14.4 % (11.5-14.5) Platelet Count 382 x10^3/uL (140-400) Neutrophils (%) (Auto) 86 % (31-73) Lymphocytes (%) (Auto) 8 % (24-48) Monocytes (%) (Auto) 6 % (0-9) Eosinophils (%) (Auto) 0 % (0-3) Basophils (%) (Auto) 0 % (0-3) Neutrophils # (Auto) 18.4 x10^3uL (1.8-7.7) Lymphocytes # (Auto) 1.7 x10^3/uL (1.0-4.8) Monocytes # (Auto) 1.4 x10^3/uL (0.0-1.1) Eosinophils # (Auto) 0.0 x10^3/uL (0.0-0.7) Basophils # (Auto) 0.0 x10^3/uL (0.0-0.2) Segmented Neutrophils % 80 % (35-66) Band Neutrophils % 4 % (0-9) Lymphocytes % 8 % (24-48) Atypical Lymphocytes % (Manual) 1 % (0-0) Monocytes % 7 % (0-10) Platelet Estimate Adequate (ADEQUATE) Prothrombin Time 17.5 SEC (11.7-14.0) Prothromb Time International Ratio 1.5 (0.8-1.1) Activated Partial Thromboplast Time 30 SEC (24-38) Fibrinogen 145 mg/dL (200-440) Sodium Level 140 mmol/L (136-145) Potassium Level 3.9 mmol/L (3.5-5.1) Chloride Level 106 mmol/L (98-107) Carbon Dioxide Level 23 mmol/L (21-32) Anion Gap 11 (6-14) Blood Urea Nitrogen 19 mg/dL (8-26) Creatinine 0.9 mg/dL (0.7-1.3) Estimated GFR (Cockcroft-Gault) 89.3 Glucose Level 131 mg/dL (70-99) Calcium Level 7.5 mg/dL (8.5-10.1) Magnesium Level 1.9 mg/dL (1.8-2.4) Procalcitonin < 0.10 ng/mL (0.00-0.10) O2 Saturation 95 % (92-99) Arterial Blood pH 7.37 (7.35-7.45) Arterial Blood pCO2 at Patient Temp 36 mmHg (35-46) Arterial Blood pO2 at Patient Temp 78 mmHg (75-108) Arterial Blood HCO3 21 mmol/L (21-28) Arterial Blood Base Excess -4 mmol/L (-3-3) FiO2 28 Microbiology 11/26/16 Anaerobic/Aerobic Culture, Resulted Pending 11/26/16 Anaerobic Culture Result 1 (ANILA), Resulted Pending 11/26/16 Aerobic Culture - Preliminary, Resulted 11/26/16 Aerobic Culture Result 1 (ANILA) - Preliminary, Resulted 11/25/16 Urine Culture - Preliminary, Resulted 11/25/16 Urine Culture Result 1 (ANILA) - Preliminary, Resulted Medication Medications Current Medications Acetaminophen/ Hydrocodone Bitart (Lortab 10/325) 1 tab PRN Q6HRS PRN PO SEVERE PAIN Last administered on 11/26/16 21:54; Start 11/26/16 at 20:45 Acetaminophen/ Hydrocodone Bitart (Lortab 5/325) 1 tab PRN Q4HRS PRN PO PAIN; Start 11/26/16 at 20:45 Albumin Human 4,000 ml @ 666.667 mls/hr 1X ONCE IV ; Start 11/27/16 at 11:00 ; Stop 11/27/16 at 16:59 Albumin Human/ Albumin Human 4,600 ml @ 766.667 mls/hr 1X ONCE IV ; Start at 19:45; Stop 11/26/16 at 19:45; Status DC Albumin Human/ Albumin Human 4,600 ml @ 766.667 mls/hr 1X ONCE IV Last administered on 11/26/16 19:45; Start 11/26/16 at 19:45; Stop 11/27/16 at 01 :44; Status DC Albuterol Sulfate (Ventolin Neb Soln) 2.5 mg 1X ONCE NEB Last administered on 11/26/16 23:43; Start 11/26/16 at 23:45; Stop 11/26/16 at 23:46; Status DC Albuterol/ Ipratropium (Duoneb) 3 ml RTQID NEB Last administered on 11/27/16 11:46; Start 11/27/16 at 08:00 Allopurinol (Zyloprim) 100 mg DAILY PO Last administered on 11/27/16 09:05; Start 11/27/16 at 09:00 Benzonatate (Tessalon Perle) 100 mg TID PO Last administered on 11/27/16 14: 15; Start 11/26/16 at 21:00 Calcium Gluconate 2000 mg/Sodium Chloride 120 ml @ 220 mls/hr 1X ONCE IV Last administered on 11/27/16 12:51; Start 11/27/16 at 13:00; Stop 11/27/16 at 13:32; Status DC Enoxaparin Sodium (Lovenox 60mg Syringe) 60 mg Q12HR SQ Last administered on 11:46; Start 11/27/16 at 11:00 Famotidine (Pepcid) 20 mg BID PO Last administered on 11/27/16 09:05; Start 11/26/16 at 21:00 Fentanyl Citrate (Fentanyl 2ml Vial) 50 mcg PRN Q2HR PRN IV SEVERE PAIN; Start 11/26/16 at 20:45 Furosemide (Lasix) 20 mg 1X ONCE IVP Last administered on 11/27/16 00:24; Start 11/27/16 at 00:30; Stop 11/27/16 at 00:31; Status DC Heparin Sodium (Porcine) (Heparin Sodium) 2,500 unit 1X ONCE INT CAT Last administered on 11/26/16 16:15; Start 11/26/16 at 16:15; Stop 11/26/16 at 16 :16; Status DC Heparin Sodium (Porcine) (Heparin Sodium) 5,000 unit 1X ONCE IV Last administered on 11/27/16 12:54; Start 11/26/16 at 19:45; Stop 11/26/16 at 19 :46; Status DC Heparin Sodium (Porcine) (Heparin Sodium) 5,000 unit 1X ONCE IV ; Start at 11:00; Stop 11/27/16 at 11:01; Status DC Heparin Sodium (Porcine) (Heparin Sodium) 10,000 unit STK-MED ONCE .ROUTE ; Start 11/26/16 at 16:22; Stop 11/26/16 at 16:23; Status DC Heparin Sodium/ Sodium Chloride 60 unit 1X ONCE IV Last administered on 16:15; Start 11/26/16 at 16:15; Stop 11/26/16 at 16:16; Status DC Heparin Sodium/ Sodium Chloride 500 ml @ As Directed STK-MED ONCE .ROUTE ; Start 11/26/16 at 16:22; Stop 11/26/16 at 16:23; Status DC Hydrochlorothiazide (Microzide) 12.5 mg DAILY PO Last administered on 09:04; Start 11/27/16 at 09:00 Labetalol HCl (Normodyne) 10 mg PRN Q2HR PRN IVP HYPERTENSION, SEE COMMENTS Last administered on 11/27/16 11:46; Start 11/26/16 at 17:30 Levothyroxine Sodium (Synthroid) 50 mcg DAILY07 PO Last administered on 08:03; Start 11/27/16 at 07:00 Lidocaine/Sodium Bicarbonate (Buffered Lidocaine 1%) 3 ml 1X ONCE IJ Last administered on 11/26/16 16:15; Start 11/26/16 at 16:15; Stop 11/26/16 at 16 :16; Status DC Lidocaine/Sodium Bicarbonate (Buffered Lidocaine 1%) 20 ml STK-MED ONCE IJ ; Start 11/26/16 at 16:22; Stop 11/26/16 at 16:23; Status DC Lorazepam (Ativan) 0.5 mg PRN Q8HRS PRN PO ANXIETY / AGITATION Last administered on 11/26/16 21:37; Start 11/26/16 at 21:15 Lorazepam (Ativan) 1 mg PRN Q4HRS PRN IV ANXIETY / AGITATION Last administered on 11/27/16 14:16; Start 11/26/16 at 21:15 Losartan Potassium (Cozaar) 100 mg DAILY PO Last administered on 11/27/16 09: 04; Start 11/27/16 at 09:00 Metformin HCl (Glucophage) 850 mg DAILYWBKFT PO Last administered on 08:03; Start 11/27/16 at 08:00 Metoprolol Succinate (Toprol Xl) 25 mg DAILY PO Last administered on 09:05; Start 11/27/16 at 09:00 Morphine Sulfate 2 mg PRN Q2HR PRN IV MODERATE PAIN Last administered on 21:11; Start 11/26/16 at 20:45 Ondansetron HCl (Zofran) 4 mg PRN Q6HRS PRN IV NAUSEA/VOMITING 1ST CHOICE; Start 11/26/16 at 23:00 Perflutren Protein Type A Microsphe (Optison) 0.66 mg 1X ONCE IV Last administered on 11/27/16 11:50; Start 11/27/16 at 11:30; Stop 11/27/16 at 11 :31; Status DC Prochlorperazine Edisylate (Compazine) 10 mg PRN Q6HRS PRN IV NAUSEA/VOMITING 2ND CHOICE; Start 11/26/16 at 23:00 Sodium Chloride 2,000 ml @ 333.333 mls/hr Q6H IV ; Start 11/27/16 at 11:00 Sodium Chloride 2,200 ml @ 366.667 mls/hr Q6H IV Last administered on t 22:30; Start 11/26/16 at 19:45; Stop 11/27/16 at 01:44; Status DC Comment Review of Relevant I have reviewed the following items jada (where applicable) has been applied. ELEUTERIO RYAN MD Nov 27, 2016 15:02
--- NOTE | 2016-11-27 15:59 | CONS ---
DATE OF CONSULTATION: REQUESTING PHYSICIAN: Hospitalist. REASON FOR CONSULTATION: Guillain-Crescent syndrome. HISTORY OF PRESENT ILLNESS: This is a 50-year-old gentleman, who is admitted to the hospital, status post recent influenza vaccination. He presents with weakness. 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 In this setting, nephrology evaluation has been requested for plasma exchange. PAST MEDICAL HISTORY: Diabetes mellitus, hypertension, morbid obesity, gout, appendectomy. ALLERGIES: None. MEDICATIONS: Reviewed from medication list. FAMILY HISTORY: Noncontributory. SOCIAL HISTORY: The patient chews tobacco, does not smoke tobacco, no alcohol use. REVIEW OF SYSTEMS: No headaches, sinus problem, nasal drainage, epistaxis, change in vision or hearing. No difficulty swallowing. No fever, chills, cough, sputum production, or hemoptysis. No chest pain, shortness of breath, PND, orthopnea, dyspnea on exertion. No abdominal pain. No upper or lower gastrointestinal blood loss. No nausea, vomiting, diarrhea, seizures or malignancies. He does have weakness. PHYSICAL EXAMINATION: GENERAL APPEARANCE: The patient is awake, conversant. HEENT: Clear. NECK: No increased JVD. No thyromegaly, mass, or adenopathy. LUNGS: Clear. CARDIAC: Without S3 or rub. ABDOMEN: Obese, bowel sounds present, nontender. EXTREMITIES: Without edema. NEUROLOGIC: Weakness. PSYCHIATRIC: Good attention to detail, appropriate affect. LABORATORY DATA: Hemoglobin 15.7, hematocrit 47, potassium 3.9, CO2 of 23, creatinine 0.9, GFR 89. 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 RECOMMENDATIONS: Proceed with plasma exchange therapy as directed by ____ service. JEWELS CHRISTIANSEN MD DR: JONAS/concepcion JOB#: [id number] / [id number]
[2016-11-27] MEDS: HYDROcodone/APAP 10/325 1 TAB TABLET PO PRN (20:23)
[2016-11-27] MEDS: LORazepam 0.5 MG TABLET PO PRN (20:23)
[2016-11-28] VITALS (23 sets, daily range): BP systolic 98–179; BP diastolic 51–87
[2016-11-28 05:30] LABS: BASO % 0 % (0-3); EOS % 1 % (0-3); HEMATOCRIT 47.7 % (39.0-53.0); HEMOGLOBIN 15.6 g/dL (13.0-17.5); LYMPH # 2.9 x10^3/uL (1.0-4.8); LYMPH % 16 % (24-48); MEAN CORPUSCULAR HEMOGLOBIN 28 pg (25-35); MEAN CORPUSCULAR HGB CONC 33 g/dL (31-37); MEAN CORPUSCULAR VOLUME 85 fL (79-100); MONO % 11 % (0-9); NEUT % 73 % (31-73); PLATELET COUNT 300 x10^3/uL (140-400); RED CELL DISTRIBUTION WIDTH 14.3 % (11.5-14.5); WHITE BLOOD COUNT 18.3 x10^3/uL (4.0-11.0)
[2016-11-28 05:33] LABS: INR 1.4 (0.8-1.1); PROTHROMBIN TIME PATIENT 16.3 SEC (11.7-14.0)
[2016-11-28 05:46] LABS: ALBUMIN 4.1 g/dL (3.4-5.0); MAGNESIUM 2.1 mg/dL (1.8-2.4)
[2016-11-28 06:01] LABS: CALCIUM 7.9 mg/dL (8.5-10.1); GFR 79.1; POTASSIUM 3.7 mmol/L (3.5-5.1)
[2016-11-28] MEDS ORDERED: IV NORMAL SALINE 1000ML BAG 2,000 ML IV SCH (08:00)
[2016-11-28] MEDS ORDERED: ALBUMIN HUMAN 5% IV ONE (08:00)
[2016-11-28] MEDS ORDERED: HEPARIN for IV BOLUS 10,000 UNIT/10 ML VIAL. IV ONE ×2 (08:00→10:00)
[2016-11-28] MEDS: FAMOTIDINE 20 MG TABLET. PO SCH ×2 (08:19→20:41)
[2016-11-28] MEDS: ALLOPURINOL 100 MG TABLET. PO SCH (08:19)
[2016-11-28] MEDS: METOPROLOL SUCC 24HR ER 25 MG TAB.ER.24H. PO SCH (08:19)
[2016-11-28] MEDS: metFORMIN 850 MG TABLET PO SCH (08:19)
[2016-11-28] MEDS: BENZONATATE 100 MG CAPSULE. PO SCH ×3 (08:19→20:41)
[2016-11-28] MEDS: hydroCHLOROthiazide 12.5 MG CAPSULE PO SCH (08:20)
[2016-11-28] MEDS: LEVOTHYROXINE 50 MCG TABLET PO SCH (08:20)
[2016-11-28] MEDS: HYDROcodone/APAP 10/325 1 TAB TABLET PO PRN (08:20)
[2016-11-28] MEDS: LOSARTAN POTASSIUM 50 MG TABLET. PO SCH (08:20)
[2016-11-28] MEDS: IPRATRPIUM/ALBUTEROL 0.5/2.5MG 3 ML NEBU. NEB SCH ×4 (08:32→20:28)
--- NOTE | 2016-11-28 09:43 | PDOC ---
PROGRESS NOTES Subjective Subjective SEEN IN FOLLOW UP OF MARY CARMEN MCCANN Objective Objective Vital Signs Date Time Temp Pulse Resp B/P (MAP) Pulse Ox O2 Delivery O2 Flow Rate FiO2 11/28/16 09:29 11 97 11/28/16 08:34 Nasal Cannula 2.0 11/28/16 08:20 93 169/85 11/28/16 08:00 97.9 97.9 Intake and Output 11/29/16 07:00 Output Total 145 ml Balance -145 ml Output Urine Total 145 ml Physical Exam Abdomen: Normal bowel sounds, Soft, No tenderness, No hepatosplenomegaly, No masses Heart: Regular rate, Normal S1, Normal S2, No murmurs, Gallops Extremities: No clubbing, No cyanosis, No edema, Normal pulses, No tenderness/ swelling General: Alert, Oriented X3, Cooperative, No acute distress Lungs: Clear to auscultation, Normal air movement Neuro: Other (WEKNESS) Diagnosis Other [facility] CAR[facility] MCCANN SYNDROME Assessment Assessment Problems Medical Problems: (1) Bilateral finger numbness Status: Acute (2) Numbness and tingling of both feet Status: Acute (3) Weakness Status: Acute Plan Plan of Care CONT PLASMA EXCHANGE. APPEARS TO BE IMPROVING Comment Review of Relevant I have reviewed the following items jada (where applicable) has been applied. Labs Laboratory Tests Test 11/26/16 11:40 11/26/16 12:20 11/26/16 14:00 11/26/16 17:22 Erythrocyte Sedimentation Rate 25 (0-15) Prothrombin Time 13.0 SEC (11.7-14.0) Prothromb Time International Ratio 1.0 (0.8-1.1) Glucose (Fingerstick) 108 mg/dL (70-99) 126 mg/dL (70-99) CSF Color Colorless CSF Clarity Clear CSF WBC 0 CSF RBC 1 CSF Glucose 70 mg/dL (37-70) CSF Total Protein 115.5 mg/dL (15.0-45.0) Test 11/27/16 03:30 11/27/16 05:00 11/28/16 03:33 White Blood Count 21.5 x10^3/uL (4.0-11.0) 18.3 x10^3/uL (4.0-11.0) Red Blood Count 5.62 x10^6/uL (4.30-5.70) 5.60 x10^6/uL (4.30-5.70) Hemoglobin 15.6 g/dL (13.0-17.5) 15.6 g/dL (13.0-17.5) Hematocrit 47.4 % (39.0-53.0) 47.7 % (39.0-53.0) Mean Corpuscular Volume 84 fL (79-100) 85 fL (79-100) Mean Corpuscular Hemoglobin 28 pg (25-35) 28 pg (25-35) Mean Corpuscular Hemoglobin Concent 33 g/dL (31-37) 33 g/dL (31-37) Red Cell Distribution Width 14.4 % (11.5-14.5) 14.3 % (11.5-14.5) Platelet Count 382 x10^3/uL (140-400) 300 x10^3/uL (140-400) Neutrophils (%) (Auto) 86 % (31-73) 73 % (31-73) Lymphocytes (%) (Auto) 8 % (24-48) 16 % (24-48) Monocytes (%) (Auto) 6 % (0-9) 11 % (0-9) Eosinophils (%) (Auto) 0 % (0-3) 1 % (0-3) Basophils (%) (Auto) 0 % (0-3) 0 % (0-3) Neutrophils # (Auto) 18.4 x10^3uL (1.8-7.7) 13.3 x10^3uL (1.8-7.7) Lymphocytes # (Auto) 1.7 x10^3/uL (1.0-4.8) 2.9 x10^3/uL (1.0-4.8) Monocytes # (Auto) 1.4 x10^3/uL (0.0-1.1) 1.9 x10^3/uL (0.0-1.1) Eosinophils # (Auto) 0.0 x10^3/uL (0.0-0.7) 0.1 x10^3/uL (0.0-0.7) Basophils # (Auto) 0.0 x10^3/uL (0.0-0.2) 0.0 x10^3/uL (0.0-0.2) Segmented Neutrophils % 80 % (35-66) Band Neutrophils % 4 % (0-9) Lymphocytes % 8 % (24-48) Atypical Lymphocytes % (Manual) 1 % (0-0) Monocytes % 7 % (0-10) Platelet Estimate Adequate (ADEQUATE) Prothrombin Time 17.5 SEC (11.7-14.0) 16.3 SEC (11.7-14.0) Prothromb Time International Ratio 1.5 (0.8-1.1) 1.4 (0.8-1.1) Activated Partial Thromboplast Time 30 SEC (24-38) 35 SEC (24-38) Fibrinogen 145 mg/dL (200-440) 139 mg/dL (200-440) Sodium Level 140 mmol/L (136-145) 140 mmol/L (136-145) Potassium Level 3.9 mmol/L (3.5-5.1) 3.7 mmol/L (3.5-5.1) Chloride Level 106 mmol/L (98-107) 107 mmol/L (98-107) Carbon Dioxide Level 23 mmol/L (21-32) 24 mmol/L (21-32) Anion Gap 11 (6-14) 9 (6-14) Blood Urea Nitrogen 19 mg/dL (8-26) 21 mg/dL (8-26) Creatinine 0.9 mg/dL (0.7-1.3) 1.0 mg/dL (0.7-1.3) Estimated GFR (Cockcroft-Gault) 89.3 79.1 Glucose Level 131 mg/dL (70-99) 101 mg/dL (70-99) Calcium Level 7.5 mg/dL (8.5-10.1) 7.9 mg/dL (8.5-10.1) Magnesium Level 1.9 mg/dL (1.8-2.4) 2.1 mg/dL (1.8-2.4) Procalcitonin < 0.10 ng/mL (0.00-0.10) O2 Saturation 95 % (92-99) Arterial Blood pH 7.37 (7.35-7.45) Arterial Blood pCO2 at Patient Temp 36 mmHg (35-46) Arterial Blood pO2 at Patient Temp 78 mmHg (75-108) Arterial Blood HCO3 21 mmol/L (21-28) Arterial Blood Base Excess -4 mmol/L (-3-3) FiO2 28 Albumin 4.1 g/dL (3.4-5.0) Laboratory Tests Test 11/28/16 03:33 White Blood Count 18.3 x10^3/uL (4.0-11.0) Red Blood Count 5.60 x10^6/uL (4.30-5.70) Hemoglobin 15.6 g/dL (13.0-17.5) Hematocrit 47.7 % (39.0-53.0) Mean Corpuscular Volume 85 fL (79-100) Mean Corpuscular Hemoglobin 28 pg (25-35) Mean Corpuscular Hemoglobin Concent 33 g/dL (31-37) Red Cell Distribution Width 14.3 % (11.5-14.5) Platelet Count 300 x10^3/uL (140-400) Neutrophils (%) (Auto) 73 % (31-73) Lymphocytes (%) (Auto) 16 % (24-48) Monocytes (%) (Auto) 11 % (0-9) Eosinophils (%) (Auto) 1 % (0-3) Basophils (%) (Auto) 0 % (0-3) Neutrophils # (Auto) 13.3 x10^3uL (1.8-7.7) Lymphocytes # (Auto) 2.9 x10^3/uL (1.0-4.8) Monocytes # (Auto) 1.9 x10^3/uL (0.0-1.1) Eosinophils # (Auto) 0.1 x10^3/uL (0.0-0.7) Basophils # (Auto) 0.0 x10^3/uL (0.0-0.2) Prothrombin Time 16.3 SEC (11.7-14.0) Prothromb Time International Ratio 1.4 (0.8-1.1) Activated Partial Thromboplast Time 35 SEC (24-38) Fibrinogen 139 mg/dL (200-440) Sodium Level 140 mmol/L (136-145) Potassium Level 3.7 mmol/L (3.5-5.1) Chloride Level 107 mmol/L (98-107) Carbon Dioxide Level 24 mmol/L (21-32) Anion Gap 9 (6-14) Blood Urea Nitrogen 21 mg/dL (8-26) Creatinine 1.0 mg/dL (0.7-1.3) Estimated GFR (Cockcroft-Gault) 79.1 Glucose Level 101 mg/dL (70-99) Calcium Level 7.9 mg/dL (8.5-10.1) Magnesium Level 2.1 mg/dL (1.8-2.4) Albumin 4.1 g/dL (3.4-5.0) Microbiology 11/26/16 Anaerobic/Aerobic Culture, Resulted Pending 11/26/16 Anaerobic Culture Result 1 (ANILA), Resulted Pending 11/26/16 Aerobic Culture - Preliminary, Resulted 11/26/16 Aerobic Culture Result 1 (ANILA) - Preliminary, Resulted 11/25/16 Urine Culture - Final, Complete 11/25/16 Urine Culture Result 1 (ANILA) - Final, Complete Medications Current Medications Lorazepam (Ativan) 2 mg 1X ONCE IV Last administered on 11/25/16 16:15; Start 11/25/16 at 16:15; Stop 11/25/16 at 16:16; Status DC Lorazepam (Ativan) 2 mg 1X ONCE IV Last administered on 11/25/16 16:47; Start 11/25/16 at 16:45; Stop 11/25/16 at 16:46; Status DC Lidocaine HCl 20 ml STK-MED ONCE .ROUTE ; Start 11/25/16 at 19:13; Stop at 19:14; Status DC Ondansetron HCl (Zofran) 4 mg PRN Q8HRS PRN IV NAUSEA/VOMITING; Start at 20:45; Stop 11/26/16 at 20:44; Status DC Sodium Chloride 1,000 ml @ 150 mls/hr Q6H40M IV Last administered on 11:34; Start 11/25/16 at 20:42; Stop 11/26/16 at 20:41; Status DC Potassium Chloride (Klor-Con) 40 meq 1X ONCE PO Last administered on 09:14; Start 11/26/16 at 07:45; Stop 11/26/16 at 07:46; Status DC Lidocaine/Sodium Bicarbonate (Buffered Lidocaine 1%) 20 ml 1X ONCE IJ Last administered on 11/26/16 14:14; Start 11/26/16 at 12:45; Stop 11/26/16 at 12 :46; Status DC Lidocaine/Sodium Bicarbonate (Buffered Lidocaine 1%) 3 ml 1X ONCE IJ Last administered on 11/26/16 16:15; Start 11/26/16 at 16:15; Stop 11/26/16 at 16 :16; Status DC Heparin Sodium/ Sodium Chloride 60 unit 1X ONCE IV Last administered on 16:15; Start 11/26/16 at 16:15; Stop 11/26/16 at 16:16; Status DC Heparin Sodium (Porcine) (Heparin Sodium) 2,500 unit 1X ONCE INT CAT Last administered on 11/26/16 16:15; Start 11/26/16 at 16:15; Stop 11/26/16 at 16 :16; Status DC Lidocaine/Sodium Bicarbonate (Buffered Lidocaine 1%) 20 ml STK-MED ONCE IJ ; Start 11/26/16 at 16:22; Stop 11/26/16 at 16:23; Status DC Heparin Sodium (Porcine) (Heparin Sodium) 10,000 unit STK-MED ONCE .ROUTE ; Start 11/26/16 at 16:22; Stop 11/26/16 at 16:23; Status DC Heparin Sodium/ Sodium Chloride 500 ml @ As Directed STK-MED ONCE .ROUTE ; Start 11/26/16 at 16:22; Stop 11/26/16 at 16:23; Status DC Labetalol HCl (Normodyne) 10 mg PRN Q2HR PRN IVP HYPERTENSION, SEE COMMENTS Last administered on 11/27/16 15:08; Start 11/26/16 at 17:30 Allopurinol (Zyloprim) 100 mg DAILY PO Last administered on 11/28/16 08:19; Start 11/27/16 at 09:00 Benzonatate (Tessalon Perle) 100 mg TID PO Last administered on 11/28/16 08: 19; Start 11/26/16 at 21:00 Levothyroxine Sodium (Synthroid) 50 mcg DAILY07 PO Last administered on 08:20; Start 11/27/16 at 07:00 Metformin HCl (Glucophage) 850 mg DAILYWBKFT PO Last administered on 08:19; Start 11/27/16 at 08:00 Metoprolol Succinate (Toprol Xl) 25 mg DAILY PO Last administered on 08:19; Start 11/27/16 at 09:00 Losartan Potassium (Cozaar) 100 mg DAILY PO Last administered on 11/28/16 08: 20; Start 11/27/16 at 09:00 Famotidine (Pepcid) 20 mg BID PO Last administered on 11/28/16 08:19; Start 11/26/16 at 21:00 Hydrochlorothiazide (Microzide) 12.5 mg DAILY PO Last administered on 08:20; Start 11/27/16 at 09:00 Albumin Human/ Albumin Human 4,600 ml @ 766.667 mls/hr 1X ONCE IV ; Start at 19:45; Stop 11/26/16 at 19:45; Status DC Sodium Chloride 2,200 ml @ 366.667 mls/hr Q6H IV Last administered on 22:30; Start 11/26/16 at 19:45; Stop 11/27/16 at 01:44; Status DC Albumin Human/ Albumin Human 4,600 ml @ 766.667 mls/hr 1X ONCE IV Last administered on 11/26/16 19:45; Start 11/26/16 at 19:45; Stop 11/27/16 at 01 :44; Status DC Heparin Sodium (Porcine) (Heparin Sodium) 5,000 unit 1X ONCE IV Last administered on 11/27/16 12:54; Start 11/26/16 at 19:45; Stop 11/26/16 at 19 :46; Status DC Morphine Sulfate 2 mg PRN Q2HR PRN IV MODERATE PAIN Last administered on 21:11; Start 11/26/16 at 20:45 Fentanyl Citrate (Fentanyl 2ml Vial) 50 mcg PRN Q2HR PRN IV SEVERE PAIN; Start 11/26/16 at 20:45 Acetaminophen/ Hydrocodone Bitart (Lortab 5/325) 1 tab PRN Q4HRS PRN PO PAIN; Start 11/26/16 at 20:45 Acetaminophen/ Hydrocodone Bitart (Lortab 10/325) 1 tab PRN Q6HRS PRN PO SEVERE PAIN Last administered on 11/28/16 08:20; Start 11/26/16 at 20:45 Lorazepam (Ativan) 0.5 mg PRN Q8HRS PRN PO ANXIETY / AGITATION Last administered on 11/27/16 20:23; Start 11/26/16 at 21:15 Lorazepam (Ativan) 1 mg PRN Q4HRS PRN IV ANXIETY / AGITATION Last administered on 11/28/16 08:19; Start 11/26/16 at 21:15 Ondansetron HCl (Zofran) 4 mg PRN Q6HRS PRN IV NAUSEA/VOMITING 1ST CHOICE; Start 11/26/16 at 23:00 Prochlorperazine Edisylate (Compazine) 10 mg PRN Q6HRS PRN IV NAUSEA/VOMITING 2ND CHOICE; Start 11/26/16 at 23:00 Albuterol Sulfate (Ventolin Neb Soln) 2.5 mg 1X ONCE NEB Last administered on 11/26/16 23:43; Start 11/26/16 at 23:45; Stop 11/26/16 at 23:46; Status DC Albuterol/ Ipratropium (Duoneb) 3 ml RTQID NEB Last administered on 11/28/16 08:32; Start 11/27/16 at 08:00 Furosemide (Lasix) 20 mg 1X ONCE IVP Last administered on 11/27/16 00:24; Start 11/27/16 at 00:30; Stop 11/27/16 at 00:31; Status DC Albumin Human 4,000 ml @ 666.667 mls/hr 1X ONCE IV ; Start 11/27/16 at 11:00 ; Stop 11/27/16 at 16:59; Status DC Sodium Chloride 2,000 ml @ 333.333 mls/hr Q6H IV ; Start 11/27/16 at 11:00; Stop 11/28/16 at 07:02; Status DC Enoxaparin Sodium (Lovenox 60mg Syringe) 60 mg Q12HR SQ Last administered on 08:19; Start 11/27/16 at 11:00 Heparin Sodium (Porcine) (Heparin Sodium) 5,000 unit 1X ONCE IV Last administered on 11/27/16 15:07; Start 11/27/16 at 11:00; Stop 11/27/16 at 11 :01; Status DC Perflutren Protein Type A Microsphe (Optison) 0.66 mg 1X ONCE IV Last administered on 11/27/16 11:50; Start 11/27/16 at 11:30; Stop 11/27/16 at 11 :31; Status DC Calcium Gluconate 2000 mg/Sodium Chloride 120 ml @ 220 mls/hr 1X ONCE IV Last administered on 11/27/16 12:51; Start 11/27/16 at 13:00; Stop 11/27/16 at 13:32; Status DC Albumin Human 4,000 ml @ 125 mls/hr 1X ONCE IV Last administered on 09:29; Start 11/28/16 at 08:00; Stop 11/29/16 at 15:59 Sodium Chloride 2,000 ml @ 0 mls/hr Q0M IV ; Start 11/28/16 at 08:00 Heparin Sodium (Porcine) (Heparin Sodium) 5,000 unit 1X ONCE IV Last administered on 11/28/16 09:28; Start 11/28/16 at 08:00; Stop 11/28/16 at 08 :01; Status DC Active Scripts Active Reported Tessalon Perle (Benzonatate) 100 Mg Capsule 1 Cap PO TID Metformin Hcl 850 Mg Tablet 750 Mg PO DAILY Metoprolol Succinate ( Xl ) (Metoprolol Succinate) 25 Mg Tab.er.24h 1 Tab PO DAILY Losartan-Hctz 100-12.5 Mg Tab (Losartan/Hydrochlorothiazide) 1 Each Tablet 1 Tab PO DAILY Allopurinol 100 Mg Tablet 1 Tab PO DAILY Synthroid (Levothyroxine Sodium) 50 Mcg Tablet 1 Tab PO DAILY Zantac (Ranitidine Hcl) 150 Mg Tablet 1 Tab PO BID Vitals/I & O Vital Sign - Last 24 Hours 11/27/16 11/27/16 11/27/16 11/27/16 10:00 11:00 11:46 11:49 Pulse 74 80 89 Resp 14 22 B/P (MAP) 118/75 (89) 178/105 (129) 186/114 Pulse Ox 98 96 96 O2 Delivery BiPAP/CPAP Nasal Cannula Nasal Cannula O2 Flow Rate 2.0 2.0 11/27/16 11/27/16 11/27/16 11/27/16 12:00 12:00 13:00 14:00 Temp 98.4 98.4 Pulse 73 78 76 Resp 13 19 20 B/P (MAP) 175/92 (119) 136/72 (93) 198/84 (122) Pulse Ox 98 95 97 O2 Delivery Nasal Cannula Nasal Cannula BiPAP/CPAP Nasal Cannula O2 Flow Rate 2.0 2.0 2.0 11/27/16 11/27/16 11/27/16 11/27/16 15:00 15:08 15:35 16:00 Pulse 76 73 Resp 22 B/P (MAP) 175/90 (118) 190/91 Pulse Ox 99 100 O2 Delivery BiPAP/CPAP BiPAP/CPAP Bi-pap 11/27/16 11/27/16 11/27/16 11/27/16 16:00 17:00 17:40 18:00 Temp 97.5 97.5 Pulse 72 68 71 Resp 16 17 19 B/P (MAP) 140/74 (96) 137/68 (91) 131/79 (96) Pulse Ox 99 99 98 98 O2 Delivery BiPAP/CPAP BiPAP/CPAP BiPAP/CPAP BiPAP/CPAP 11/27/16 11/27/16 11/27/16 11/27/16 19:00 19:23 19:49 20:00 Temp 98.2 98.2 Pulse 70 102 Resp 19 20 B/P (MAP) 142/73 (96) 159/82 (107) Pulse Ox 99 98 94 O2 Delivery Nasal Cannula Nasal Cannula Nasal Cannula Nasal Cannula O2 Flow Rate 2.0 2.0 2.0 2.0 11/27/16 11/27/16 11/27/16 11/27/16 20:23 20:26 21:00 21:23 Pulse 94 Resp 20 19 B/P (MAP) 111/58 (75) Pulse Ox 98 99 O2 Delivery Nasal Cannula BiPAP/CPAP Nasal Cannula BiPAP/CPAP O2 Flow Rate 2.0 2.0 11/27/16 11/27/16 11/27/16 11/28/16 22:00 23:00 23:48 00:00 Temp 98.8 98.8 Pulse 80 86 72 Resp 19 19 19 B/P (MAP) 140/71 (94) 119/77 (91) 98/51 (67) Pulse Ox 99 94 98 98 O2 Delivery BiPAP/CPAP BiPAP/CPAP BiPAP/CPAP BiPAP/CPAP 10/11/28/16 11/28/16 11/28/16 00:15 01:00 01:14 02:00 Pulse 68 68 Resp 19 B/P (MAP) 141/73 (95) 162/86 (111) Pulse Ox 100 100 100 O2 Delivery Bi-pap Nasal Cannula BiPAP/CPAP Nasal Cannula 11/28/16 11/28/16 11/28/16 11/28/16 03:00 03:22 04:00 04:02 Temp 98.2 98.2 Pulse 74 74 Resp 19 16 B/P (MAP) 179/84 (115) 130/61 (84) Pulse Ox 99 100 99 O2 Delivery BiPAP/CPAP BiPAP/CPAP BiPAP/CPAP Bi-pap 11/28/16 11/28/16 11/28/16 11/28/16 05:00 05:11 06:00 07:00 Pulse 70 70 68 Resp 17 B/P (MAP) 161/75 (103) 137/69 (91) 144/73 (96) Pulse Ox 100 100 99 100 O2 Delivery BiPAP/CPAP BiPAP/CPAP BiPAP/CPAP BiPAP/CPAP 11/28/16 11/28/16 11/28/16 11/28/16 08:00 08:00 08:19 08:20 Temp 97.9 97.9 Pulse 84 95 93 Resp 21 B/P (MAP) 169/85 (113) 169/85 169/85 Pulse Ox 95 O2 Delivery Room Air Room Air 11/28/16 11/28/16 11/28/16 08:20 08:34 09:29 Resp 19 11 Pulse Ox 95 95 97 O2 Delivery Room Air Nasal Cannula O2 Flow Rate 2.0 Intake and Output 11/28/16 11/28/16 11/29/16 15:00 23:00 07:00 Output Total 145 ml Balance -145 ml JEWELS CHRISTIANSEN MD Nov 28, 2016 09:43
--- NOTE | 2016-11-28 12:46 | PDOC ---
PROGRESS NOTES Chief Complaint Chief Complaint Guillian [place] Generalized weakness Numbness in hands and feet AMSN PMHx: Diabetes, hypertension, gout, obesity, appendectomy, wrist and knee surgery. History of Present Illness History of Present Illness Pt seen at bedside in the ICU. Numbness and weakness improving. Less SOB today. No CP or abd pain. Neuro is following. Discussed with Dr. Donahue from neuro, she believes this may be a variant of GB. Etiology is unclear. Plasmapheresis for 3- 5 days depending on improvement. Nephro is following. Pulm is following and monitoring O2 status and pt respirations. Await subspec input-continue with their plan of care. Vitals Vitals Vital Signs Date Time Temp Pulse Resp B/P (MAP) Pulse Ox O2 Delivery O2 Flow Rate FiO2 11/28/16 12:00 Room Air 11/28/16 11:00 86 23 152/76 (101) 98 11/28/16 08:34 2.0 11/28/16 08:00 97.9 97.9 Physical Exam General: Alert, Oriented X3, Cooperative, No acute distress Heart: Regular rate, Normal S1, Normal S2, No murmurs, Gallops Lungs: Other (moving air well, improving) Abdomen: Normal bowel sounds, Soft, No tenderness, No hepatosplenomegaly, No masses Extremities: No clubbing, No cyanosis, No edema, Normal pulses, No tenderness/ swelling Skin: No rashes, No significant lesion Labs LABS Laboratory Tests Test 11/28/16 03:33 White Blood Count 18.3 x10^3/uL (4.0-11.0) Red Blood Count 5.60 x10^6/uL (4.30-5.70) Hemoglobin 15.6 g/dL (13.0-17.5) Hematocrit 47.7 % (39.0-53.0) Mean Corpuscular Volume 85 fL (79-100) Mean Corpuscular Hemoglobin 28 pg (25-35) Mean Corpuscular Hemoglobin Concent 33 g/dL (31-37) Red Cell Distribution Width 14.3 % (11.5-14.5) Platelet Count 300 x10^3/uL (140-400) Neutrophils (%) (Auto) 73 % (31-73) Lymphocytes (%) (Auto) 16 % (24-48) Monocytes (%) (Auto) 11 % (0-9) Eosinophils (%) (Auto) 1 % (0-3) Basophils (%) (Auto) 0 % (0-3) Neutrophils # (Auto) 13.3 x10^3uL (1.8-7.7) Lymphocytes # (Auto) 2.9 x10^3/uL (1.0-4.8) Monocytes # (Auto) 1.9 x10^3/uL (0.0-1.1) Eosinophils # (Auto) 0.1 x10^3/uL (0.0-0.7) Basophils # (Auto) 0.0 x10^3/uL (0.0-0.2) Prothrombin Time 16.3 SEC (11.7-14.0) Prothromb Time International Ratio 1.4 (0.8-1.1) Activated Partial Thromboplast Time 35 SEC (24-38) Fibrinogen 139 mg/dL (200-440) Sodium Level 140 mmol/L (136-145) Potassium Level 3.7 mmol/L (3.5-5.1) Chloride Level 107 mmol/L (98-107) Carbon Dioxide Level 24 mmol/L (21-32) Anion Gap 9 (6-14) Blood Urea Nitrogen 21 mg/dL (8-26) Creatinine 1.0 mg/dL (0.7-1.3) Estimated GFR (Cockcroft-Gault) 79.1 Glucose Level 101 mg/dL (70-99) Calcium Level 7.9 mg/dL (8.5-10.1) Magnesium Level 2.1 mg/dL (1.8-2.4) Albumin 4.1 g/dL (3.4-5.0) Review of Systems Review of Systems Gen: + fatigue, + generalized weakness, no fevers or chills CV: No CP or palp Resp: + mild SOB, No wheezing neuro: + numbness to hands and feet-improving Assessment and Plan Assessmemt and Plan Problems Medical Problems: (1) Bilateral finger numbness Status: Acute (2) Numbness and tingling of both feet Status: Acute (3) Weakness Status: Acute Assessment: Generalized weakness Numbness in hands and feet Respiratory distress-in the ICU AMSN Diabetes, hypertension, gout, obesity Plan: Pt on NC in ICU continue Plasmapheresis for 3-5 depending on pt improvement-Appreciate subspecialty input discussed with Dr. Donahue of neuro Reviewed CXR Reviewed LP Home meds recheck labs pt/ot Neuro, pulm, nephro, and cardio following cont medical tx Appreciate subspec input-Will move forward with their plan of care Prognosis guarded Total time 32 minutes Problems: Comment Review of Relevant I have reviewed the following items jada (where applicable) has been applied. Labs Laboratory Tests Test 11/26/16 14:00 11/26/16 17:22 11/27/16 03:30 11/27/16 05:00 CSF Color Colorless CSF Clarity Clear CSF WBC 0 CSF RBC 1 CSF Glucose 70 mg/dL (37-70) CSF Total Protein 115.5 mg/dL (15.0-45.0) Glucose (Fingerstick) 126 mg/dL (70-99) White Blood Count 21.5 x10^3/uL (4.0-11.0) Red Blood Count 5.62 x10^6/uL (4.30-5.70) Hemoglobin 15.6 g/dL (13.0-17.5) Hematocrit 47.4 % (39.0-53.0) Mean Corpuscular Volume 84 fL (79-100) Mean Corpuscular Hemoglobin 28 pg (25-35) Mean Corpuscular Hemoglobin Concent 33 g/dL (31-37) Red Cell Distribution Width 14.4 % (11.5-14.5) Platelet Count 382 x10^3/uL (140-400) Neutrophils (%) (Auto) 86 % (31-73) Lymphocytes (%) (Auto) 8 % (24-48) Monocytes (%) (Auto) 6 % (0-9) Eosinophils (%) (Auto) 0 % (0-3) Basophils (%) (Auto) 0 % (0-3) Neutrophils # (Auto) 18.4 x10^3uL (1.8-7.7) Lymphocytes # (Auto) 1.7 x10^3/uL (1.0-4.8) Monocytes # (Auto) 1.4 x10^3/uL (0.0-1.1) Eosinophils # (Auto) 0.0 x10^3/uL (0.0-0.7) Basophils # (Auto) 0.0 x10^3/uL (0.0-0.2) Segmented Neutrophils % 80 % (35-66) Band Neutrophils % 4 % (0-9) Lymphocytes % 8 % (24-48) Atypical Lymphocytes % (Manual) 1 % (0-0) Monocytes % 7 % (0-10) Platelet Estimate Adequate (ADEQUATE) Prothrombin Time 17.5 SEC (11.7-14.0) Prothromb Time International Ratio 1.5 (0.8-1.1) Activated Partial Thromboplast Time 30 SEC (24-38) Fibrinogen 145 mg/dL (200-440) Sodium Level 140 mmol/L (136-145) Potassium Level 3.9 mmol/L (3.5-5.1) Chloride Level 106 mmol/L (98-107) Carbon Dioxide Level 23 mmol/L (21-32) Anion Gap 11 (6-14) Blood Urea Nitrogen 19 mg/dL (8-26) Creatinine 0.9 mg/dL (0.7-1.3) Estimated GFR (Cockcroft-Gault) 89.3 Glucose Level 131 mg/dL (70-99) Calcium Level 7.5 mg/dL (8.5-10.1) Magnesium Level 1.9 mg/dL (1.8-2.4) Procalcitonin < 0.10 ng/mL (0.00-0.10) O2 Saturation 95 % (92-99) Arterial Blood pH 7.37 (7.35-7.45) Arterial Blood pCO2 at Patient Temp 36 mmHg (35-46) Arterial Blood pO2 at Patient Temp 78 mmHg (75-108) Arterial Blood HCO3 21 mmol/L (21-28) Arterial Blood Base Excess -4 mmol/L (-3-3) FiO2 28 Test 11/28/16 03:33 White Blood Count 18.3 x10^3/uL (4.0-11.0) Red Blood Count 5.60 x10^6/uL (4.30-5.70) Hemoglobin 15.6 g/dL (13.0-17.5) Hematocrit 47.7 % (39.0-53.0) Mean Corpuscular Volume 85 fL (79-100) Mean Corpuscular Hemoglobin 28 pg (25-35) Mean Corpuscular Hemoglobin Concent 33 g/dL (31-37) Red Cell Distribution Width 14.3 % (11.5-14.5) Platelet Count 300 x10^3/uL (140-400) Neutrophils (%) (Auto) 73 % (31-73) Lymphocytes (%) (Auto) 16 % (24-48) Monocytes (%) (Auto) 11 % (0-9) Eosinophils (%) (Auto) 1 % (0-3) Basophils (%) (Auto) 0 % (0-3) Neutrophils # (Auto) 13.3 x10^3uL (1.8-7.7) Lymphocytes # (Auto) 2.9 x10^3/uL (1.0-4.8) Monocytes # (Auto) 1.9 x10^3/uL (0.0-1.1) Eosinophils # (Auto) 0.1 x10^3/uL (0.0-0.7) Basophils # (Auto) 0.0 x10^3/uL (0.0-0.2) Prothrombin Time 16.3 SEC (11.7-14.0) Prothromb Time International Ratio 1.4 (0.8-1.1) Activated Partial Thromboplast Time 35 SEC (24-38) Fibrinogen 139 mg/dL (200-440) Sodium Level 140 mmol/L (136-145) Potassium Level 3.7 mmol/L (3.5-5.1) Chloride Level 107 mmol/L (98-107) Carbon Dioxide Level 24 mmol/L (21-32) Anion Gap 9 (6-14) Blood Urea Nitrogen 21 mg/dL (8-26) Creatinine 1.0 mg/dL (0.7-1.3) Estimated GFR (Cockcroft-Gault) 79.1 Glucose Level 101 mg/dL (70-99) Calcium Level 7.9 mg/dL (8.5-10.1) Magnesium Level 2.1 mg/dL (1.8-2.4) Albumin 4.1 g/dL (3.4-5.0) Laboratory Tests Test 11/28/16 03:33 White Blood Count 18.3 x10^3/uL (4.0-11.0) Red Blood Count 5.60 x10^6/uL (4.30-5.70) Hemoglobin 15.6 g/dL (13.0-17.5) Hematocrit 47.7 % (39.0-53.0) Mean Corpuscular Volume 85 fL (79-100) Mean Corpuscular Hemoglobin 28 pg (25-35) Mean Corpuscular Hemoglobin Concent 33 g/dL (31-37) Red Cell Distribution Width 14.3 % (11.5-14.5) Platelet Count 300 x10^3/uL (140-400) Neutrophils (%) (Auto) 73 % (31-73) Lymphocytes (%) (Auto) 16 % (24-48) Monocytes (%) (Auto) 11 % (0-9) Eosinophils (%) (Auto) 1 % (0-3) Basophils (%) (Auto) 0 % (0-3) Neutrophils # (Auto) 13.3 x10^3uL (1.8-7.7) Lymphocytes # (Auto) 2.9 x10^3/uL (1.0-4.8) Monocytes # (Auto) 1.9 x10^3/uL (0.0-1.1) Eosinophils # (Auto) 0.1 x10^3/uL (0.0-0.7) Basophils # (Auto) 0.0 x10^3/uL (0.0-0.2) Prothrombin Time 16.3 SEC (11.7-14.0) Prothromb Time International Ratio 1.4 (0.8-1.1) Activated Partial Thromboplast Time 35 SEC (24-38) Fibrinogen 139 mg/dL (200-440) Sodium Level 140 mmol/L (136-145) Potassium Level 3.7 mmol/L (3.5-5.1) Chloride Level 107 mmol/L (98-107) Carbon Dioxide Level 24 mmol/L (21-32) Anion Gap 9 (6-14) Blood Urea Nitrogen 21 mg/dL (8-26) Creatinine 1.0 mg/dL (0.7-1.3) Estimated GFR (Cockcroft-Gault) 79.1 Glucose Level 101 mg/dL (70-99) Calcium Level 7.9 mg/dL (8.5-10.1) Magnesium Level 2.1 mg/dL (1.8-2.4) Albumin 4.1 g/dL (3.4-5.0) Microbiology 11/26/16 Anaerobic/Aerobic Culture, Resulted Pending 11/26/16 Anaerobic Culture Result 1 (ANILA), Resulted Pending 11/26/16 Aerobic Culture - Preliminary, Resulted 11/26/16 Aerobic Culture Result 1 (ANILA) - Preliminary, Resulted 11/25/16 Urine Culture - Final, Complete 11/25/16 Urine Culture Result 1 (ANILA) - Final, Complete Medications Current Medications Lorazepam (Ativan) 2 mg 1X ONCE IV Last administered on 11/25/16 16:15; Start 11/25/16 at 16:15; Stop 11/25/16 at 16:16; Status DC Lorazepam (Ativan) 2 mg 1X ONCE IV Last administered on 11/25/16 16:47; Start 11/25/16 at 16:45; Stop 11/25/16 at 16:46; Status DC Lidocaine HCl 20 ml STK-MED ONCE .ROUTE ; Start 11/25/16 at 19:13; Stop at 19:14; Status DC Ondansetron HCl (Zofran) 4 mg PRN Q8HRS PRN IV NAUSEA/VOMITING; Start at 20:45; Stop 11/26/16 at 20:44; Status DC Sodium Chloride 1,000 ml @ 150 mls/hr Q6H40M IV Last administered on 11:34; Start 11/25/16 at 20:42; Stop 11/26/16 at 20:41; Status DC Potassium Chloride (Klor-Con) 40 meq 1X ONCE PO Last administered on 09:14; Start 11/26/16 at 07:45; Stop 11/26/16 at 07:46; Status DC Lidocaine/Sodium Bicarbonate (Buffered Lidocaine 1%) 20 ml 1X ONCE IJ Last administered on 11/26/16 14:14; Start 11/26/16 at 12:45; Stop 11/26/16 at 12 :46; Status DC Lidocaine/Sodium Bicarbonate (Buffered Lidocaine 1%) 3 ml 1X ONCE IJ Last administered on 11/26/16 16:15; Start 11/26/16 at 16:15; Stop 11/26/16 at 16 :16; Status DC Heparin Sodium/ Sodium Chloride 60 unit 1X ONCE IV Last administered on 16:15; Start 11/26/16 at 16:15; Stop 11/26/16 at 16:16; Status DC Heparin Sodium (Porcine) (Heparin Sodium) 2,500 unit 1X ONCE INT CAT Last administered on 11/26/16 16:15; Start 11/26/16 at 16:15; Stop 11/26/16 at 16 :16; Status DC Lidocaine/Sodium Bicarbonate (Buffered Lidocaine 1%) 20 ml STK-MED ONCE IJ ; Start 11/26/16 at 16:22; Stop 11/26/16 at 16:23; Status DC Heparin Sodium (Porcine) (Heparin Sodium) 10,000 unit STK-MED ONCE .ROUTE ; Start 11/26/16 at 16:22; Stop 11/26/16 at 16:23; Status DC Heparin Sodium/ Sodium Chloride 500 ml @ As Directed STK-MED ONCE .ROUTE ; Start 11/26/16 at 16:22; Stop 11/26/16 at 16:23; Status DC Labetalol HCl (Normodyne) 10 mg PRN Q2HR PRN IVP HYPERTENSION, SEE COMMENTS Last administered on 11/27/16 15:08; Start 11/26/16 at 17:30 Allopurinol (Zyloprim) 100 mg DAILY PO Last administered on 11/28/16 08:19; Start 11/27/16 at 09:00 Benzonatate (Tessalon Perle) 100 mg TID PO Last administered on 11/28/16 08: 19; Start 11/26/16 at 21:00 Levothyroxine Sodium (Synthroid) 50 mcg DAILY07 PO Last administered on 08:20; Start 11/27/16 at 07:00 Metformin HCl (Glucophage) 850 mg DAILYWBKFT PO Last administered on 08:19; Start 11/27/16 at 08:00 Metoprolol Succinate (Toprol Xl) 25 mg DAILY PO Last administered on 08:19; Start 11/27/16 at 09:00 Losartan Potassium (Cozaar) 100 mg DAILY PO Last administered on 11/28/16 08: 20; Start 11/27/16 at 09:00 Famotidine (Pepcid) 20 mg BID PO Last administered on 11/28/16 08:19; Start 11/26/16 at 21:00 Hydrochlorothiazide (Microzide) 12.5 mg DAILY PO Last administered on 08:20; Start 11/27/16 at 09:00 Albumin Human/ Albumin Human 4,600 ml @ 766.667 mls/hr 1X ONCE IV ; Start at 19:45; Stop 11/26/16 at 19:45; Status DC Sodium Chloride 2,200 ml @ 366.667 mls/hr Q6H IV Last administered on 22:30; Start 11/26/16 at 19:45; Stop 11/27/16 at 01:44; Status DC Albumin Human/ Albumin Human 4,600 ml @ 766.667 mls/hr 1X ONCE IV Last administered on 11/26/16 19:45; Start 11/26/16 at 19:45; Stop 11/27/16 at 01 :44; Status DC Heparin Sodium (Porcine) (Heparin Sodium) 5,000 unit 1X ONCE IV Last administered on 11/27/16 12:54; Start 11/26/16 at 19:45; Stop 11/26/16 at 19 :46; Status DC Morphine Sulfate 2 mg PRN Q2HR PRN IV MODERATE PAIN Last administered on 21:11; Start 11/26/16 at 20:45 Fentanyl Citrate (Fentanyl 2ml Vial) 50 mcg PRN Q2HR PRN IV SEVERE PAIN; Start 11/26/16 at 20:45 Acetaminophen/ Hydrocodone Bitart (Lortab 5/325) 1 tab PRN Q4HRS PRN PO PAIN; Start 11/26/16 at 20:45 Acetaminophen/ Hydrocodone Bitart (Lortab 10/325) 1 tab PRN Q6HRS PRN PO SEVERE PAIN Last administered on 11/28/16 08:20; Start 11/26/16 at 20:45 Lorazepam (Ativan) 0.5 mg PRN Q8HRS PRN PO ANXIETY / AGITATION Last administered on 11/27/16 20:23; Start 11/26/16 at 21:15 Lorazepam (Ativan) 1 mg PRN Q4HRS PRN IV ANXIETY / AGITATION Last administered on 11/28/16 08:19; Start 11/26/16 at 21:15 Ondansetron HCl (Zofran) 4 mg PRN Q6HRS PRN IV NAUSEA/VOMITING 1ST CHOICE; Start 11/26/16 at 23:00 Prochlorperazine Edisylate (Compazine) 10 mg PRN Q6HRS PRN IV NAUSEA/VOMITING 2ND CHOICE; Start 11/26/16 at 23:00 Albuterol Sulfate (Ventolin Neb Soln) 2.5 mg 1X ONCE NEB Last administered on 11/26/16 23:43; Start 11/26/16 at 23:45; Stop 11/26/16 at 23:46; Status DC Albuterol/ Ipratropium (Duoneb) 3 ml RTQID NEB Last administered on 11/28/16 08:32; Start 11/27/16 at 08:00 Furosemide (Lasix) 20 mg 1X ONCE IVP Last administered on 11/27/16 00:24; Start 11/27/16 at 00:30; Stop 11/27/16 at 00:31; Status DC Albumin Human 4,000 ml @ 666.667 mls/hr 1X ONCE IV Last administered on 11/28 10:06; Start 11/27/16 at 11:00; Stop 11/27/16 at 16:59; Status DC Sodium Chloride 2,000 ml @ 333.333 mls/hr Q6H IV ; Start 11/27/16 at 11:00; Stop 11/28/16 at 07:02; Status DC Enoxaparin Sodium (Lovenox 60mg Syringe) 60 mg Q12HR SQ Last administered on 08:19; Start 11/27/16 at 11:00 Heparin Sodium (Porcine) (Heparin Sodium) 5,000 unit 1X ONCE IV Last administered on 11/27/16 15:07; Start 11/27/16 at 11:00; Stop 11/27/16 at 11 :01; Status DC Perflutren Protein Type A Microsphe (Optison) 0.66 mg 1X ONCE IV Last administered on 11/27/16 11:50; Start 11/27/16 at 11:30; Stop 11/27/16 at 11 :31; Status DC Calcium Gluconate 2000 mg/Sodium Chloride 120 ml @ 220 mls/hr 1X ONCE IV Last administered on 11/27/16 12:51; Start 11/27/16 at 13:00; Stop 11/27/16 at 13:32; Status DC Albumin Human 4,000 ml @ 125 mls/hr 1X ONCE IV Last administered on 09:29; Start 11/28/16 at 08:00; Stop 11/29/16 at 15:59 Sodium Chloride 2,000 ml @ 0 mls/hr Q0M IV ; Start 11/28/16 at 08:00 Heparin Sodium (Porcine) (Heparin Sodium) 5,000 unit 1X ONCE IV Last administered on 11/28/16 09:28; Start 11/28/16 at 08:00; Stop 11/28/16 at 08 :01; Status DC Heparin Sodium (Porcine) (Heparin Sodium) 5,000 unit 1X ONCE IV ; Start at 10:00; Stop 11/28/16 at 10:07; Status DC Active Scripts Active Reported Tessalon Perle (Benzonatate) 100 Mg Capsule 1 Cap PO TID Metformin Hcl 850 Mg Tablet 750 Mg PO DAILY Metoprolol Succinate ( Xl ) (Metoprolol Succinate) 25 Mg Tab.er.24h 1 Tab PO DAILY Losartan-Hctz 100-12.5 Mg Tab (Losartan/Hydrochlorothiazide) 1 Each Tablet 1 Tab PO DAILY Allopurinol 100 Mg Tablet 1 Tab PO DAILY Synthroid (Levothyroxine Sodium) 50 Mcg Tablet 1 Tab PO DAILY Zantac (Ranitidine Hcl) 150 Mg Tablet 1 Tab PO BID Vitals/I & O Vital Sign - Last 24 Hours 11/27/16 11/27/16 11/27/16 11/27/16 13:00 14:00 15:00 15:08 Temp 98.4 98.4 Pulse 78 76 76 73 Resp 19 20 22 B/P (MAP) 136/72 (93) 198/84 (122) 175/90 (118) 190/91 Pulse Ox 95 97 99 O2 Delivery BiPAP/CPAP Nasal Cannula BiPAP/CPAP O2 Flow Rate 2.0 11/27/16 11/27/16 11/27/16 11/27/16 15:35 16:00 16:00 17:00 Temp 97.5 97.5 Pulse 72 68 Resp 16 17 B/P (MAP) 140/74 (96) 137/68 (91) Pulse Ox 100 99 99 O2 Delivery BiPAP/CPAP Bi-pap BiPAP/CPAP BiPAP/CPAP 11/27/16 11/27/16 11/27/16 11/27/16 17:40 18:00 19:00 19:23 Pulse 71 70 Resp 19 19 B/P (MAP) 131/79 (96) 142/73 (96) Pulse Ox 98 98 99 98 O2 Delivery BiPAP/CPAP BiPAP/CPAP Nasal Cannula Nasal Cannula O2 Flow Rate 2.0 2.0 11/27/16 11/27/16 11/27/16 11/27/16 19:49 20:00 20:23 20:26 Temp 98.2 98.2 Pulse 102 Resp 20 20 B/P (MAP) 159/82 (107) Pulse Ox 94 98 O2 Delivery Nasal Cannula Nasal Cannula Nasal Cannula BiPAP/CPAP O2 Flow Rate 2.0 2.0 2.0 11/27/16 11/27/16 11/27/16 11/27/16 21:00 21:23 22:00 23:00 Pulse 94 80 86 Resp 19 19 19 B/P (MAP) 111/58 (75) 140/71 (94) 119/77 (91) Pulse Ox 99 99 94 O2 Delivery Nasal Cannula BiPAP/CPAP BiPAP/CPAP BiPAP/CPAP O2 Flow Rate 2.0 11/27/16 11/28/16 11/28/16 11/28/16 23:48 00:00 00:15 01:00 Temp 98.8 98.8 Pulse 72 68 Resp 19 19 B/P (MAP) 98/51 (67) 141/73 (95) Pulse Ox 98 98 100 O2 Delivery BiPAP/CPAP BiPAP/CPAP Bi-pap Nasal Cannula 11/28/16 11/28/16 11/28/16 11/28/16 01:14 02:00 03:00 03:22 Pulse 68 74 Resp 19 19 B/P (MAP) 162/86 (111) 179/84 (115) Pulse Ox 100 100 99 100 O2 Delivery BiPAP/CPAP Nasal Cannula BiPAP/CPAP BiPAP/CPAP 11/28/16 11/28/16 11/28/16 11/28/16 04:00 04:02 05:00 05:11 Temp 98.2 98.2 Pulse 74 70 Resp 16 19 B/P (MAP) 130/61 (84) 161/75 (103) Pulse Ox 99 100 100 O2 Delivery BiPAP/CPAP Bi-pap BiPAP/CPAP BiPAP/CPAP 11/28/16 11/28/16 11/28/16 11/28/16 06:00 07:00 08:00 08:00 Temp 97.9 97.9 Pulse 70 68 84 Resp 19 17 21 B/P (MAP) 137/69 (91) 144/73 (96) 169/85 (113) Pulse Ox 99 100 95 O2 Delivery BiPAP/CPAP BiPAP/CPAP Room Air Room Air 11/28/16 11/28/16 11/28/16 11/28/16 08:19 08:20 08:20 08:34 Pulse 95 93 Resp 19 B/P (MAP) 169/85 169/85 Pulse Ox 95 95 O2 Delivery Room Air Nasal Cannula O2 Flow Rate 2.0 11/28/16 11/28/16 11/28/16 11/28/16 09:00 09:29 10:00 11:00 Pulse 76 79 86 Resp 15 11 17 23 B/P (MAP) 133/73 (93) 148/87 (107) 152/76 (101) Pulse Ox 93 97 100 98 O2 Delivery BiPAP/CPAP BiPAP/CPAP Room Air 11/28/16 12:00 O2 Delivery Room Air Intake and Output 11/28/16 11/28/16 11/29/16 15:00 23:00 07:00 Output Total 600 ml Balance -600 ml JUAN LAZO III DO Nov 28, 2016 12:46
[2016-11-28] MEDS ORDERED: GADOBUTROL 7.5 MMOL/7.5 ML VIAL IV ONE ×2 (15:00)
--- NOTE | 2016-11-28 15:01 | PDOC ---
PULMONARY PROGRESS NOTES Subjective PT WITH NO INCREASE SOA FEELS STRONGER COUGH IS STRONG Vitals Vital Signs Date Time Temp Pulse Resp B/P (MAP) Pulse Ox O2 Delivery O2 Flow Rate FiO2 11/28/16 13:00 96 22 98/66 (77) 99 Room Air 11/28/16 12:00 98.1 98.1 11/28/16 08:34 2.0 ROS: No Nausea, No Chest Pain, No Abdominal Pain, No Increase Cough Lungs: Clear Cardiovascular: S1, S2 Abdomen: Soft, Non-tender Neuro Exam: Alert Extremities: No Edema Skin: Warm Labs Laboratory Tests Test 11/26/16 17:22 11/27/16 03:30 11/27/16 05:00 11/28/16 03:33 Glucose (Fingerstick) 126 mg/dL (70-99) White Blood Count 21.5 x10^3/uL (4.0-11.0) 18.3 x10^3/uL (4.0-11.0) Red Blood Count 5.62 x10^6/uL (4.30-5.70) 5.60 x10^6/uL (4.30-5.70) Hemoglobin 15.6 g/dL (13.0-17.5) 15.6 g/dL (13.0-17.5) Hematocrit 47.4 % (39.0-53.0) 47.7 % (39.0-53.0) Mean Corpuscular Volume 84 fL (79-100) 85 fL (79-100) Mean Corpuscular Hemoglobin 28 pg (25-35) 28 pg (25-35) Mean Corpuscular Hemoglobin Concent 33 g/dL (31-37) 33 g/dL (31-37) Red Cell Distribution Width 14.4 % (11.5-14.5) 14.3 % (11.5-14.5) Platelet Count 382 x10^3/uL (140-400) 300 x10^3/uL (140-400) Neutrophils (%) (Auto) 86 % (31-73) 73 % (31-73) Lymphocytes (%) (Auto) 8 % (24-48) 16 % (24-48) Monocytes (%) (Auto) 6 % (0-9) 11 % (0-9) Eosinophils (%) (Auto) 0 % (0-3) 1 % (0-3) Basophils (%) (Auto) 0 % (0-3) 0 % (0-3) Neutrophils # (Auto) 18.4 x10^3uL (1.8-7.7) 13.3 x10^3uL (1.8-7.7) Lymphocytes # (Auto) 1.7 x10^3/uL (1.0-4.8) 2.9 x10^3/uL (1.0-4.8) Monocytes # (Auto) 1.4 x10^3/uL (0.0-1.1) 1.9 x10^3/uL (0.0-1.1) Eosinophils # (Auto) 0.0 x10^3/uL (0.0-0.7) 0.1 x10^3/uL (0.0-0.7) Basophils # (Auto) 0.0 x10^3/uL (0.0-0.2) 0.0 x10^3/uL (0.0-0.2) Segmented Neutrophils % 80 % (35-66) Band Neutrophils % 4 % (0-9) Lymphocytes % 8 % (24-48) Atypical Lymphocytes % (Manual) 1 % (0-0) Monocytes % 7 % (0-10) Platelet Estimate Adequate (ADEQUATE) Prothrombin Time 17.5 SEC (11.7-14.0) 16.3 SEC (11.7-14.0) Prothromb Time International Ratio 1.5 (0.8-1.1) 1.4 (0.8-1.1) Activated Partial Thromboplast Time 30 SEC (24-38) 35 SEC (24-38) Fibrinogen 145 mg/dL (200-440) 139 mg/dL (200-440) Sodium Level 140 mmol/L (136-145) 140 mmol/L (136-145) Potassium Level 3.9 mmol/L (3.5-5.1) 3.7 mmol/L (3.5-5.1) Chloride Level 106 mmol/L (98-107) 107 mmol/L (98-107) Carbon Dioxide Level 23 mmol/L (21-32) 24 mmol/L (21-32) Anion Gap 11 (6-14) 9 (6-14) Blood Urea Nitrogen 19 mg/dL (8-26) 21 mg/dL (8-26) Creatinine 0.9 mg/dL (0.7-1.3) 1.0 mg/dL (0.7-1.3) Estimated GFR (Cockcroft-Gault) 89.3 79.1 Glucose Level 131 mg/dL (70-99) 101 mg/dL (70-99) Calcium Level 7.5 mg/dL (8.5-10.1) 7.9 mg/dL (8.5-10.1) Magnesium Level 1.9 mg/dL (1.8-2.4) 2.1 mg/dL (1.8-2.4) Procalcitonin < 0.10 ng/mL (0.00-0.10) O2 Saturation 95 % (92-99) Arterial Blood pH 7.37 (7.35-7.45) Arterial Blood pCO2 at Patient Temp 36 mmHg (35-46) Arterial Blood pO2 at Patient Temp 78 mmHg (75-108) Arterial Blood HCO3 21 mmol/L (21-28) Arterial Blood Base Excess -4 mmol/L (-3-3) FiO2 28 Albumin 4.1 g/dL (3.4-5.0) Laboratory Tests Test 11/28/16 03:33 White Blood Count 18.3 x10^3/uL (4.0-11.0) Red Blood Count 5.60 x10^6/uL (4.30-5.70) Hemoglobin 15.6 g/dL (13.0-17.5) Hematocrit 47.7 % (39.0-53.0) Mean Corpuscular Volume 85 fL (79-100) Mean Corpuscular Hemoglobin 28 pg (25-35) Mean Corpuscular Hemoglobin Concent 33 g/dL (31-37) Red Cell Distribution Width 14.3 % (11.5-14.5) Platelet Count 300 x10^3/uL (140-400) Neutrophils (%) (Auto) 73 % (31-73) Lymphocytes (%) (Auto) 16 % (24-48) Monocytes (%) (Auto) 11 % (0-9) Eosinophils (%) (Auto) 1 % (0-3) Basophils (%) (Auto) 0 % (0-3) Neutrophils # (Auto) 13.3 x10^3uL (1.8-7.7) Lymphocytes # (Auto) 2.9 x10^3/uL (1.0-4.8) Monocytes # (Auto) 1.9 x10^3/uL (0.0-1.1) Eosinophils # (Auto) 0.1 x10^3/uL (0.0-0.7) Basophils # (Auto) 0.0 x10^3/uL (0.0-0.2) Prothrombin Time 16.3 SEC (11.7-14.0) Prothromb Time International Ratio 1.4 (0.8-1.1) Activated Partial Thromboplast Time 35 SEC (24-38) Fibrinogen 139 mg/dL (200-440) Sodium Level 140 mmol/L (136-145) Potassium Level 3.7 mmol/L (3.5-5.1) Chloride Level 107 mmol/L (98-107) Carbon Dioxide Level 24 mmol/L (21-32) Anion Gap 9 (6-14) Blood Urea Nitrogen 21 mg/dL (8-26) Creatinine 1.0 mg/dL (0.7-1.3) Estimated GFR (Cockcroft-Gault) 79.1 Glucose Level 101 mg/dL (70-99) Calcium Level 7.9 mg/dL (8.5-10.1) Magnesium Level 2.1 mg/dL (1.8-2.4) Albumin 4.1 g/dL (3.4-5.0) Medications Active Scripts Medications Dose Route/Sig Max Daily Dose Days Date Category Tessalon Perle (Benzonatate) 100 Mg Capsule 1 Cap PO TID 11/26/16 Reported Metformin Hcl 850 Mg Tablet 750 Mg PO DAILY 11/26/16 Reported Metoprolol Succinate ( Xl ) (Metoprolol Succinate) 25 Mg Tab.er.24h 1 Tab PO DAILY 11/26/16 Reported Losartan-Hctz 100-12.5 Mg Tab (Losartan/Hydrochlorothiazide) 1 Each Tablet 1 Tab PO DAILY 11/26/16 Reported Allopurinol 100 Mg Tablet 1 Tab PO DAILY 11/26/16 Reported Synthroid (Levothyroxine Sodium) 50 Mcg Tablet 1 Tab PO DAILY 11/26/16 Reported Zantac (Ranitidine Hcl) 150 Mg Tablet 1 Tab PO BID 11/26/16 Reported Impression . 1. Acute hypoxemic respiratory failure secondary to neuromuscular disease. GBS 2. Abnormal chest x-ray. 3. Atelectasis. 4. Leukocytosis. 5. Diabetes mellitus. 6. Hypertension. 7. Snoring, excessive daytime sleepiness and obesity, probable obstructive sleep apnea-hypopnea syndrome. . Plan . PT FEELS STRONGER, RESP STATUS COMPENSATED WILL CONTINUE BIPAP QHS OP SLEEP STUDY 1. Titrate FiO2 to keep O2 saturation 92%. 2. We will support him with BiPAP 3. Follow Neurology recommendation. 4. Continue plasmapheresis for now. 5. DIET ADVANCE 6. Start Lovenox for DVT prophylaxis. 7. Pepcid for stress ulcer prophylaxis. KD BETANCOURT MD Nov 28, 2016 15:01
--- NOTE | 2016-11-28 15:46 | RAD ---
Clinical indications: Generalized weakness. Slurred speech. Right-sided facial droop.. Technique: T1 and T2 and FLAIR MRI sequences of the whole brain were performed. After IV infusion of 14 cc of Gadavist, postcontrast T1-weighted MRI sequence of the whole brain were performed. Images were obtained in axial, coronal, and sagittal planes. Diffusion weighted MRI sequence was performed as well. IMPRESSION: Noncontrast head CT dated November 22, 2016. Findings: No acute ischemia is seen on the diffusion weighted images. No cerebral or cerebellar or brainstem edema or bright signal intensity is seen. No intracranial mass lesion or mass-effect is seen. No midline shift or hydrocephalus or extra-axial fluid collection is seen. No intracranial hemorrhage is identified. No intracranial contrast enhancing lesion is seen. Normal vascular flow signal voids are seen. The internal auditory canals have a symmetric appearance and no cerebellopontine angle mass is present. No cerebellar tonsillar ectopia is seen. No pituitary mass is identified. Small mucous retention cysts of the floor of both maxillary sinuses is seen.. Impression: No significant MRI abnormality of the brain is seen.
--- NOTE | 2016-11-28 16:19 | PDOC ---
PROGRESS NOTES Assessment Assessment Generalized weakness x 5 days before admission. Numbness in distal extremities x 5 days before admission. GBS, ASMAN?. Leukocytosis. DM HTN Gout Degenerative C-spine disease. Obesity. No evidence of acute CVA or brain tumor or pontine lesion this time. RECOMMENDATIONS/PLAN: Plasma exchange, planned for 5 days. Day 3 on 11/28, first one was on 11/27/16. Consulted nephrology. Treat medical diseases. OT/PT. C-spine MRI w/o contrast on 11/25/16: mild stenosis and degenerative changes. No cord abnormality found. CSF on 11/26/16: WBC 0, protein 115.5. Gram stain: no organism. Brain MRI w/wo contrast on 11/28/16: No acute abnormal findings. HISTORY OF THE PRESENT ILLNESS: 50-y-old male patient with above medical diseases developed symptoms of numbness in his fingers and toes and generalized weakness in all extremities for about 5 days. He was seen at ER about 3 days ago and was discharged home to follow up with his PCP. His symptoms became worse stating he was unable to stand or walk, so he went to ER again on 11/25/16. LP was attempted in the ER but was not successful. No cranial nerve deficits. No urinary or bowel dysfunction. His symptoms of numbness and tingling improved and his muscle strength improved as well since 11/27, but he developed new signs of the right VII palsy on 11/28/ PAST MEDICAL HISTORY: Please see above. PAST SURGERY HISTORY: Appendectomy ALLERGY: NKDA MEDICATIONS: Refer to [facility] FAMILY HISTORY: DM SOCIAL HISTORY: Lives at home. Denies current smoking, drinking, and illicit drug use. REVIEW OF SYSTEMS: Constitutional: Near morbid obesity. Head: No recent traumatic brain or head injury. Skin: No edema, or rash. Ear: No infection. Eyes: No vision loss or color blindness. Nose: No bleeding or purulent discharges. Hearing: No hearing decrease. Neck: No injury. Cardiac: HTN. Pulmonary: No COPD. GI: No GI ulcer, GI bleeding. Urinary/genital: No dysuria, incontinence, urinary retention. Endocrinologic: Diabetes Mellitus, morbid obesity. Skeletomuscular: ]Generalized weakness this time. Neurological: see HP. Psychiatric: Denies drug use/abuse. Otherwise, not [id number] review of systems. PHYSICAL EXAMINATION: General appearance is in subacute distress. HEENT: Normocephalic and nontraumatic. Eyes, nose, ears, and throat are unremarkable. Neck is supple. No lymphadenopathy. No crepitus. Cardiovascular: S1, S2, regular rate and rhythm. Pulmonary: Clear to auscultation bilaterally. Abdomen: Bowel sounds are positive. Extremities: No rash, lesions, or edema. No restriction of range of motion NEUROLOGICAL EXAMINATION: Alert Oriented to time, place and person. PERRL. EOMI. CN: Right VII peripheral palsy first noted on 11/28/16. Muscle tone: within normal. Muscle strength: 4+ UE, 4+ right LE, 4- left LE. DTR: 2 UE, 1 knee right knee, 0-1 left knee, 1- ankles. Plantar reflex: Flexor response bilaterally Gait: Still unable to walk since here. Sensory exam: no abnormal findings found except numbness and tingling sense in finger tips. No acute cerebellar signs elicited. F-T-N test fine. Objective Objective Vital Signs Date Time Temp Pulse Resp B/P (MAP) Pulse Ox O2 Delivery O2 Flow Rate FiO2 11/28/16 15:49 97 Room Air 11/28/16 14:00 86 22 160/85 (110) 11/28/16 12:00 98.1 98.1 Intake and Output 11/29/16 07:00 Output Total 750 ml Balance -750 ml Output Urine Total 750 ml Vitals Signs Vitals VS - Last 72 Hours, by Label Date Time Temp Pulse Resp B/P (MAP) Pulse Ox O2 Delivery O2 Flow Rate FiO2 11/28/16 15:49 97 Room Air 11/28/16 14:00 86 22 160/85 (110) 96 Room Air 11/28/16 13:00 96 22 98/66 (77) 99 Room Air 11/28/16 12:00 Room Air 11/28/16 12:00 98.1 84 20 153/83 (106) 96 Room Air 98.1 11/28/16 11:00 86 23 152/76 (101) 98 Room Air 11/28/16 10:00 79 17 148/87 (107) 100 BiPAP/CPAP 11/28/16 09:29 11 97 11/28/16 09:00 76 15 133/73 (93) 93 BiPAP/CPAP 11/28/16 08:34 95 Nasal Cannula 2.0 11/28/16 08:20 19 95 Room Air 11/28/16 08:20 93 169/85 11/28/16 08:19 95 169/85 11/28/16 08:00 97.9 84 21 169/85 (113) 95 Room Air 97.9 11/28/16 08:00 Room Air 11/28/16 07:00 68 17 144/73 (96) 100 BiPAP/CPAP 11/28/16 06:00 70 19 137/69 (91) 99 BiPAP/CPAP 11/28/16 05:11 100 BiPAP/CPAP 11/28/16 05:00 70 19 161/75 (103) 100 BiPAP/CPAP 11/28/16 04:02 Bi-pap 11/28/16 04:00 98.2 74 16 130/61 (84) 99 BiPAP/CPAP 98.2 11/28/16 03:22 100 BiPAP/CPAP 11/28/16 03:00 74 19 179/84 (115) 99 BiPAP/CPAP 11/28/16 02:00 68 19 162/86 (111) 100 Nasal Cannula 11/28/16 01:14 100 BiPAP/CPAP 11/28/16 01:00 68 19 141/73 (95) 100 Nasal Cannula 11/28/16 00:15 Bi-pap 11/28/16 00:00 98.8 72 19 98/51 (67) 98 BiPAP/CPAP 98.8 11/27/16 23:48 98 BiPAP/CPAP 11/27/16 23:00 86 19 119/77 (91) 94 BiPAP/CPAP 11/27/16 22:00 80 19 140/71 (94) 99 BiPAP/CPAP 11/27/16 21:23 BiPAP/CPAP 11/27/16 21:00 94 19 111/58 (75) 99 Nasal Cannula 2.0 11/27/16 20:26 98 BiPAP/CPAP 11/27/16 20:23 20 Nasal Cannula 2.0 11/27/16 20:00 98.2 102 20 159/82 (107) 94 Nasal Cannula 2.0 98.2 11/27/16 19:49 Nasal Cannula 2.0 11/27/16 19:23 98 Nasal Cannula 2.0 11/27/16 19:00 70 19 142/73 (96) 99 Nasal Cannula 2.0 11/27/16 18:00 71 19 131/79 (96) 98 BiPAP/CPAP 11/27/16 17:40 98 BiPAP/CPAP 11/27/16 17:00 68 17 137/68 (91) 99 BiPAP/CPAP 11/27/16 16:00 97.5 72 16 140/74 (96) 99 BiPAP/CPAP 97.5 11/27/16 16:00 Bi-pap 11/27/16 15:35 100 BiPAP/CPAP 11/27/16 15:08 73 190/91 11/27/16 15:00 76 22 175/90 (118) 99 BiPAP/CPAP 11/27/16 14:00 76 20 198/84 (122) 97 Nasal Cannula 2.0 11/27/16 13:00 98.4 78 19 136/72 (93) 95 BiPAP/CPAP 98.4 11/27/16 12:00 Nasal Cannula 2.0 11/27/16 12:00 73 13 175/92 (119) 98 Nasal Cannula 2.0 11/27/16 11:49 96 Nasal Cannula 2.0 11/27/16 11:46 89 186/114 11/27/16 11:00 80 22 178/105 (129) 96 Nasal Cannula 2.0 11/27/16 10:00 74 14 118/75 (89) 98 BiPAP/CPAP 11/27/16 09:21 97 210/109 11/27/16 09:05 102 210/109 11/27/16 09:04 101 210/109 11/27/16 09:00 102 27 210/109 (142) 95 Nasal Cannula 2.0 11/27/16 08:22 96 Nasal Cannula 2.0 11/27/16 08:00 Nasal Cannula 2.0 11/27/16 08:00 98.4 81 15 156/87 (110) 97 BiPAP/CPAP 98.4 11/27/16 07:00 92 24 161/97 (118) 93 Nasal Cannula 2.0 Laboratory Laboratory Laboratory Tests Test 11/28/16 03:33 White Blood Count 18.3 x10^3/uL (4.0-11.0) Red Blood Count 5.60 x10^6/uL (4.30-5.70) Hemoglobin 15.6 g/dL (13.0-17.5) Hematocrit 47.7 % (39.0-53.0) Mean Corpuscular Volume 85 fL (79-100) Mean Corpuscular Hemoglobin 28 pg (25-35) Mean Corpuscular Hemoglobin Concent 33 g/dL (31-37) Red Cell Distribution Width 14.3 % (11.5-14.5) Platelet Count 300 x10^3/uL (140-400) Neutrophils (%) (Auto) 73 % (31-73) Lymphocytes (%) (Auto) 16 % (24-48) Monocytes (%) (Auto) 11 % (0-9) Eosinophils (%) (Auto) 1 % (0-3) Basophils (%) (Auto) 0 % (0-3) Neutrophils # (Auto) 13.3 x10^3uL (1.8-7.7) Lymphocytes # (Auto) 2.9 x10^3/uL (1.0-4.8) Monocytes # (Auto) 1.9 x10^3/uL (0.0-1.1) Eosinophils # (Auto) 0.1 x10^3/uL (0.0-0.7) Basophils # (Auto) 0.0 x10^3/uL (0.0-0.2) Prothrombin Time 16.3 SEC (11.7-14.0) Prothromb Time International Ratio 1.4 (0.8-1.1) Activated Partial Thromboplast Time 35 SEC (24-38) Fibrinogen 139 mg/dL (200-440) Sodium Level 140 mmol/L (136-145) Potassium Level 3.7 mmol/L (3.5-5.1) Chloride Level 107 mmol/L (98-107) Carbon Dioxide Level 24 mmol/L (21-32) Anion Gap 9 (6-14) Blood Urea Nitrogen 21 mg/dL (8-26) Creatinine 1.0 mg/dL (0.7-1.3) Estimated GFR (Cockcroft-Gault) 79.1 Glucose Level 101 mg/dL (70-99) Calcium Level 7.9 mg/dL (8.5-10.1) Magnesium Level 2.1 mg/dL (1.8-2.4) Albumin 4.1 g/dL (3.4-5.0) Microbiology 11/26/16 Anaerobic/Aerobic Culture, Resulted Pending 11/26/16 Anaerobic Culture Result 1 (ANILA), Resulted Pending 11/26/16 Aerobic Culture - Preliminary, Resulted 11/26/16 Aerobic Culture Result 1 (ANILA) - Preliminary, Resulted 11/25/16 Urine Culture - Final, Complete 11/25/16 Urine Culture Result 1 (ANILA) - Final, Complete Medication Medications Current Medications Albumin Human 4,000 ml @ 125 mls/hr 1X ONCE IV Last administered on 09:29; Start 11/28/16 at 08:00; Stop 11/29/16 at 15:59 Gadobutrol (Gadavist) 7 mmol 1X ONCE IV Last administered on 11/28/16 15:05 ; Start 11/28/16 at 15:00; Stop 11/28/16 at 15:04; Status DC Gadobutrol (Gadavist) 7 mmol 1X ONCE IV Last administered on 11/28/16 15:06 ; Start 11/28/16 at 15:00; Stop 11/28/16 at 15:04; Status DC Heparin Sodium (Porcine) (Heparin Sodium) 5,000 unit 1X ONCE IV Last administered on 11/28/16 09:28; Start 11/28/16 at 08:00; Stop 11/28/16 at 08 :01; Status DC Heparin Sodium (Porcine) (Heparin Sodium) 5,000 unit 1X ONCE IV ; Start at 10:00; Stop 11/28/16 at 10:07; Status DC Sodium Chloride 2,000 ml @ 0 mls/hr Q0M IV ; Start 11/28/16 at 08:00 Comment Review of Relevant I have reviewed the following items jada (where applicable) has been applied. ELEUTERIO RYAN MD Nov 28, 2016 16:19
[2016-11-28 22:07] LABS: HERPES SIMPLEX TYPE 1 Negative (Negative); HERPES SIMPLEX TYPE 2 Negative (Negative)
[2016-11-29] VITALS (24 sets, daily range): BP systolic 86–134; BP diastolic 57–80
[2016-11-29 05:02] LABS: BASO # 0.1 x10^3/uL (0.0-0.2); BASO % 1 % (0-3); EOS % 1 % (0-3); HEMATOCRIT 45.2 % (39.0-53.0); LYMPH % 18 % (24-48); MEAN CORPUSCULAR HEMOGLOBIN 28 pg (25-35); MEAN CORPUSCULAR HGB CONC 33 g/dL (31-37); MEAN CORPUSCULAR VOLUME 85 fL (79-100); MONO % 11 % (0-9); NEUT % 69 % (31-73); PLATELET COUNT 278 x10^3/uL (140-400); RED BLOOD COUNT 5.34 x10^6/uL (4.30-5.70); RED CELL DISTRIBUTION WIDTH 14.8 % (11.5-14.5); WHITE BLOOD COUNT 16.8 x10^3/uL (4.0-11.0)
[2016-11-29 05:07] LABS: INR 1.3 (0.8-1.1); PROTHROMBIN TIME PATIENT 15.5 SEC (11.7-14.0)
[2016-11-29 05:09] LABS: ALBUMIN 3.6 g/dL (3.4-5.0); ALBUMIN/GLOBULIN RATIO 2.8 (1.0-1.7); CALCIUM 8.3 mg/dL (8.5-10.1); GFR 79.1; POTASSIUM 3.5 mmol/L (3.5-5.1); TOTAL BILIRUBIN 0.9 mg/dL (0.2-1.0); TOTAL PROTEIN 4.9 g/dL (6.4-8.2)
[2016-11-29] MEDS: LEVOTHYROXINE 50 MCG TABLET PO SCH (06:33)
--- NOTE | 2016-11-29 06:36 | PDOC ---
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 (11/26). clean Labs Lab Laboratory Tests Test 11/29/16 04:05 White Blood Count 16.8 x10^3/uL (4.0-11.0) Red Blood Count 5.34 x10^6/uL (4.30-5.70) Hemoglobin 15.0 g/dL (13.0-17.5) Hematocrit 45.2 % (39.0-53.0) Mean Corpuscular Volume 85 fL (79-100) Mean Corpuscular Hemoglobin 28 pg (25-35) Mean Corpuscular Hemoglobin Concent 33 g/dL (31-37) Red Cell Distribution Width 14.8 % (11.5-14.5) Platelet Count 278 x10^3/uL (140-400) Neutrophils (%) (Auto) 69 % (31-73) Lymphocytes (%) (Auto) 18 % (24-48) Monocytes (%) (Auto) 11 % (0-9) Eosinophils (%) (Auto) 1 % (0-3) Basophils (%) (Auto) 1 % (0-3) Neutrophils # (Auto) 11.6 x10^3uL (1.8-7.7) Lymphocytes # (Auto) 3.0 x10^3/uL (1.0-4.8) Monocytes # (Auto) 1.9 x10^3/uL (0.0-1.1) Eosinophils # (Auto) 0.2 x10^3/uL (0.0-0.7) Basophils # (Auto) 0.1 x10^3/uL (0.0-0.2) Prothrombin Time 15.5 SEC (11.7-14.0) Prothromb Time International Ratio 1.3 (0.8-1.1) Activated Partial Thromboplast Time 33 SEC (24-38) Fibrinogen 188 mg/dL (200-440) Sodium Level 141 mmol/L (136-145) Potassium Level 3.5 mmol/L (3.5-5.1) Chloride Level 107 mmol/L (98-107) Carbon Dioxide Level 25 mmol/L (21-32) Anion Gap 9 (6-14) Blood Urea Nitrogen 24 mg/dL (8-26) Creatinine 1.0 mg/dL (0.7-1.3) Estimated GFR (Cockcroft-Gault) 79.1 BUN/Creatinine Ratio 24 (6-20) Glucose Level 106 mg/dL (70-99) Calcium Level 8.3 mg/dL (8.5-10.1) Total Bilirubin 0.9 mg/dL (0.2-1.0) Aspartate Amino Transf (AST/SGOT) 10 U/L (15-37) Alanine Aminotransferase (ALT/SGPT) 17 U/L (16-63) Alkaline Phosphatase 20 U/L (46-116) Total Protein 4.9 g/dL (6.4-8.2) Albumin 3.6 g/dL (3.4-5.0) Albumin/Globulin Ratio 2.8 (1.0-1.7) Objective Assessment 1. Extreme weakness, ? Atypical presentation of GBS is possible. The concern is that the patient did have flu vaccine 2 weeks ago. - s/p LP: Opening pressure 18 cm/H2O, CSF colorless, clear, WBC 0, glucose 70 , T. protein 115.5 - RPR nonreactive/HSV - neg. MRI head - neg 2. Leukocytosis, probably reactive. - improving without abx 3. Diabetes. 4. Hypertension. 5. Obesity. 6. Resp failure - better Bipap Plan Plan of Care Cont off abx supportive care f/u labs/cultures KARIE JONES MD Nov 29, 2016 06:36
--- NOTE | 2016-11-29 07:51 | RAD ---
Procedure: Ultrasound-guided placement of right internal jugular central venous [id number]/2017 7:48 AM Clinical Indication: PLASMAPHERESIS Discussion: The risks and benefits of the procedure were discussed the patient and/or their traffic representative. Informed consent was obtained. A timeout procedure was performed. All elements of maximal sterile barrier technique including the use of a cap, mask, sterile gown, sterile gloves, large sterile sheet, appropriate hand hygiene, and 2% chlorhexidine for cutaneous antisepsis (or acceptable alternative antiseptic per current guidelines) were followed for this procedure. The patient was prepped and draped in the usual sterile fashion. Ultrasound interrogation of the right neck revealed patency and compressibility of the right internal jugular vein. A 21-gauge micropuncture was then used to gain access to this vein under ultrasound guidance. A hard copy ultrasound image was recorded. A guidewire was advanced centrally. 5 Urdu sheath was placed. Over a wire following dilatation, a dual lumen temporary dialysis catheter was advanced centrally. Catheter was found to flush and aspirate normally. Follow-up chest radiograph demonstrates tip at the cavoatrial junction. Catheter secured in place and a sterile dressing was applied. No immediate complications were identified. Impression: Successful ultrasound-guided placement of right internal jugular temporary dialysis catheter
[2016-11-29] MEDS ORDERED: ALBUMIN HUMAN 5% IV ONE (08:00)
[2016-11-29] MEDS: IV NORMAL SALINE 1000ML BAG 1,000 ML IV SCH ×2 (08:00→17:16)
[2016-11-29] MEDS: LOSARTAN POTASSIUM 50 MG TABLET. PO SCH (08:03)
[2016-11-29] MEDS: FAMOTIDINE 20 MG TABLET. PO SCH ×2 (08:04→20:43)
[2016-11-29] MEDS: ALLOPURINOL 100 MG TABLET. PO SCH (08:04)
[2016-11-29] MEDS: metFORMIN 850 MG TABLET PO SCH (08:04)
[2016-11-29] MEDS: hydroCHLOROthiazide 12.5 MG CAPSULE PO SCH (08:04)
[2016-11-29] MEDS: METOPROLOL SUCC 24HR ER 25 MG TAB.ER.24H. PO SCH (08:05)
[2016-11-29] MEDS: BENZONATATE 100 MG CAPSULE. PO SCH ×3 (08:08→20:43)
[2016-11-29] MEDS: IPRATRPIUM/ALBUTEROL 0.5/2.5MG 3 ML NEBU. NEB SCH ×4 (08:25→19:42)
--- NOTE | 2016-11-29 10:12 | PDOC ---
Dialysis Progress Note Dialysis Note Dialysis Note Seen on Plasma Exchange, tolerating treatment Well so far Vitals: 122/61 106 General Appearance: Awake: Alert Oriented x 2-3 Neck: No JVD or JVP Chest: CTA Kishan Heart: S1 S2 Abdomen - Soft NTND Extremities - No Edema TPE # 4 today ongoing - 6L exchange: 3400 Albumin, 600 FFP (due to low Fibroinogen) and 2L NS as previously ordered Vitals Vital Signs Vital Signs Date Time Temp Pulse Resp B/P (MAP) Pulse Ox O2 Delivery O2 Flow Rate FiO2 11/29/16 09:00 110 18 134/66 (88) 96 Room Air 11/29/16 08:00 98.2 98.2 11/28/16 15:49 Labs Last Labs Laboratory Tests Test 11/28/16 03:33 11/29/16 04:05 White Blood Count 18.3 x10^3/uL (4.0-11.0) 16.8 x10^3/uL (4.0-11.0) Red Blood Count 5.60 x10^6/uL (4.30-5.70) 5.34 x10^6/uL (4.30-5.70) Hemoglobin 15.6 g/dL (13.0-17.5) 15.0 g/dL (13.0-17.5) Hematocrit 47.7 % (39.0-53.0) 45.2 % (39.0-53.0) Mean Corpuscular Volume 85 fL (79-100) 85 fL (79-100) Mean Corpuscular Hemoglobin 28 pg (25-35) 28 pg (25-35) Mean Corpuscular Hemoglobin Concent 33 g/dL (31-37) 33 g/dL (31-37) Red Cell Distribution Width 14.3 % (11.5-14.5) 14.8 % (11.5-14.5) Platelet Count 300 x10^3/uL (140-400) 278 x10^3/uL (140-400) Neutrophils (%) (Auto) 73 % (31-73) 69 % (31-73) Lymphocytes (%) (Auto) 16 % (24-48) 18 % (24-48) Monocytes (%) (Auto) 11 % (0-9) 11 % (0-9) Eosinophils (%) (Auto) 1 % (0-3) 1 % (0-3) Basophils (%) (Auto) 0 % (0-3) 1 % (0-3) Neutrophils # (Auto) 13.3 x10^3uL (1.8-7.7) 11.6 x10^3uL (1.8-7.7) Lymphocytes # (Auto) 2.9 x10^3/uL (1.0-4.8) 3.0 x10^3/uL (1.0-4.8) Monocytes # (Auto) 1.9 x10^3/uL (0.0-1.1) 1.9 x10^3/uL (0.0-1.1) Eosinophils # (Auto) 0.1 x10^3/uL (0.0-0.7) 0.2 x10^3/uL (0.0-0.7) Basophils # (Auto) 0.0 x10^3/uL (0.0-0.2) 0.1 x10^3/uL (0.0-0.2) Prothrombin Time 16.3 SEC (11.7-14.0) 15.5 SEC (11.7-14.0) Prothromb Time International Ratio 1.4 (0.8-1.1) 1.3 (0.8-1.1) Activated Partial Thromboplast Time 35 SEC (24-38) 33 SEC (24-38) Fibrinogen 139 mg/dL (200-440) 188 mg/dL (200-440) Sodium Level 140 mmol/L (136-145) 141 mmol/L (136-145) Potassium Level 3.7 mmol/L (3.5-5.1) 3.5 mmol/L (3.5-5.1) Chloride Level 107 mmol/L (98-107) 107 mmol/L (98-107) Carbon Dioxide Level 24 mmol/L (21-32) 25 mmol/L (21-32) Anion Gap 9 (6-14) 9 (6-14) Blood Urea Nitrogen 21 mg/dL (8-26) 24 mg/dL (8-26) Creatinine 1.0 mg/dL (0.7-1.3) 1.0 mg/dL (0.7-1.3) Estimated GFR (Cockcroft-Gault) 79.1 79.1 Glucose Level 101 mg/dL (70-99) 106 mg/dL (70-99) Calcium Level 7.9 mg/dL (8.5-10.1) 8.3 mg/dL (8.5-10.1) Magnesium Level 2.1 mg/dL (1.8-2.4) Albumin 4.1 g/dL (3.4-5.0) 3.6 g/dL (3.4-5.0) BUN/Creatinine Ratio 24 (6-20) Total Bilirubin 0.9 mg/dL (0.2-1.0) Aspartate Amino Transf (AST/SGOT) 10 U/L (15-37) Alanine Aminotransferase (ALT/SGPT) 17 U/L (16-63) Alkaline Phosphatase 20 U/L (46-116) Total Protein 4.9 g/dL (6.4-8.2) Albumin/Globulin Ratio 2.8 (1.0-1.7) Laboratory Tests Test 11/29/16 04:05 White Blood Count 16.8 x10^3/uL (4.0-11.0) Red Blood Count 5.34 x10^6/uL (4.30-5.70) Hemoglobin 15.0 g/dL (13.0-17.5) Hematocrit 45.2 % (39.0-53.0) Mean Corpuscular Volume 85 fL (79-100) Mean Corpuscular Hemoglobin 28 pg (25-35) Mean Corpuscular Hemoglobin Concent 33 g/dL (31-37) Red Cell Distribution Width 14.8 % (11.5-14.5) Platelet Count 278 x10^3/uL (140-400) Neutrophils (%) (Auto) 69 % (31-73) Lymphocytes (%) (Auto) 18 % (24-48) Monocytes (%) (Auto) 11 % (0-9) Eosinophils (%) (Auto) 1 % (0-3) Basophils (%) (Auto) 1 % (0-3) Neutrophils # (Auto) 11.6 x10^3uL (1.8-7.7) Lymphocytes # (Auto) 3.0 x10^3/uL (1.0-4.8) Monocytes # (Auto) 1.9 x10^3/uL (0.0-1.1) Eosinophils # (Auto) 0.2 x10^3/uL (0.0-0.7) Basophils # (Auto) 0.1 x10^3/uL (0.0-0.2) Prothrombin Time 15.5 SEC (11.7-14.0) Prothromb Time International Ratio 1.3 (0.8-1.1) Activated Partial Thromboplast Time 33 SEC (24-38) Fibrinogen 188 mg/dL (200-440) Sodium Level 141 mmol/L (136-145) Potassium Level 3.5 mmol/L (3.5-5.1) Chloride Level 107 mmol/L (98-107) Carbon Dioxide Level 25 mmol/L (21-32) Anion Gap 9 (6-14) Blood Urea Nitrogen 24 mg/dL (8-26) Creatinine 1.0 mg/dL (0.7-1.3) Estimated GFR (Cockcroft-Gault) 79.1 BUN/Creatinine Ratio 24 (6-20) Glucose Level 106 mg/dL (70-99) Calcium Level 8.3 mg/dL (8.5-10.1) Total Bilirubin 0.9 mg/dL (0.2-1.0) Aspartate Amino Transf (AST/SGOT) 10 U/L (15-37) Alanine Aminotransferase (ALT/SGPT) 17 U/L (16-63) Alkaline Phosphatase 20 U/L (46-116) Total Protein 4.9 g/dL (6.4-8.2) Albumin 3.6 g/dL (3.4-5.0) Albumin/Globulin Ratio 2.8 (1.0-1.7) Assessment Assessment Problems Medical Problems: (1) Bilateral finger numbness Status: Acute (2) Numbness and tingling of both feet Status: Acute (3) Weakness Status: Acute Problems: Plan Plan of Care Problems Medical Problems: (1) Bilateral finger numbness Status: Acute (2) Numbness and tingling of both feet Status: Acute (3) Weakness Status: Acute MUMTAZ CORDOVA MD Nov 29, 2016 10:12
[2016-11-29] MEDS: POTASSIUM CHLORIDE 20MEQ 50 ML IV SCH ×2 (10:33→11:30)
--- NOTE | 2016-11-29 10:46 | PDOC ---
PROGRESS NOTES Assessment Problems Medical Problems: (1) Bilateral finger numbness Status: Acute (2) Numbness and tingling of both feet Status: Acute (3) Weakness Status: Acute GBS, ASMAN?. Leukocytosis. DM HTN Gout Degenerative C-spine disease. Obesity. No evidence of acute CVA or brain tumor or pontine lesion this time. Plan Plasma exchange, Day 4/5 today Consulted nephrology. Treat medical diseases. OT/PT,PM&R consult. Will need inpatient rehab. I will do EMG later today Subjective Denies pain Objective Vital Signs Date Time Temp Pulse Resp B/P (MAP) Pulse Ox O2 Delivery O2 Flow Rate FiO2 11/29/16 10:00 93 17 122/61 (81) 97 Room Air 11/29/16 08:00 98.2 98.2 11/28/16 15:49 Intake and Output 11/30/16 07:00 Intake Total 150 ml Output Total 400 ml Balance -250 ml Intake Oral 150 ml Output Urine Total 400 ml PHYSICAL EXAM Alert. Oriented to time, place and person. PERRL. EOMI. CN: no focal findings. Muscle tone: normal. Muscle strength: 4/5 DTR: 0-1+ Plantar reflex: flexor Gait: not examined in bed. Sensory exam: distal loss, arms and legs No cerebellar signs elicited. Review of Relevant I have reviewed the following items jada (where applicable) has been applied. Labs Laboratory Tests Test 11/28/16 03:33 11/29/16 04:05 White Blood Count 18.3 x10^3/uL (4.0-11.0) 16.8 x10^3/uL (4.0-11.0) Red Blood Count 5.60 x10^6/uL (4.30-5.70) 5.34 x10^6/uL (4.30-5.70) Hemoglobin 15.6 g/dL (13.0-17.5) 15.0 g/dL (13.0-17.5) Hematocrit 47.7 % (39.0-53.0) 45.2 % (39.0-53.0) Mean Corpuscular Volume 85 fL (79-100) 85 fL (79-100) Mean Corpuscular Hemoglobin 28 pg (25-35) 28 pg (25-35) Mean Corpuscular Hemoglobin Concent 33 g/dL (31-37) 33 g/dL (31-37) Red Cell Distribution Width 14.3 % (11.5-14.5) 14.8 % (11.5-14.5) Platelet Count 300 x10^3/uL (140-400) 278 x10^3/uL (140-400) Neutrophils (%) (Auto) 73 % (31-73) 69 % (31-73) Lymphocytes (%) (Auto) 16 % (24-48) 18 % (24-48) Monocytes (%) (Auto) 11 % (0-9) 11 % (0-9) Eosinophils (%) (Auto) 1 % (0-3) 1 % (0-3) Basophils (%) (Auto) 0 % (0-3) 1 % (0-3) Neutrophils # (Auto) 13.3 x10^3uL (1.8-7.7) 11.6 x10^3uL (1.8-7.7) Lymphocytes # (Auto) 2.9 x10^3/uL (1.0-4.8) 3.0 x10^3/uL (1.0-4.8) Monocytes # (Auto) 1.9 x10^3/uL (0.0-1.1) 1.9 x10^3/uL (0.0-1.1) Eosinophils # (Auto) 0.1 x10^3/uL (0.0-0.7) 0.2 x10^3/uL (0.0-0.7) Basophils # (Auto) 0.0 x10^3/uL (0.0-0.2) 0.1 x10^3/uL (0.0-0.2) Prothrombin Time 16.3 SEC (11.7-14.0) 15.5 SEC (11.7-14.0) Prothromb Time International Ratio 1.4 (0.8-1.1) 1.3 (0.8-1.1) Activated Partial Thromboplast Time 35 SEC (24-38) 33 SEC (24-38) Fibrinogen 139 mg/dL (200-440) 188 mg/dL (200-440) Sodium Level 140 mmol/L (136-145) 141 mmol/L (136-145) Potassium Level 3.7 mmol/L (3.5-5.1) 3.5 mmol/L (3.5-5.1) Chloride Level 107 mmol/L (98-107) 107 mmol/L (98-107) Carbon Dioxide Level 24 mmol/L (21-32) 25 mmol/L (21-32) Anion Gap 9 (6-14) 9 (6-14) Blood Urea Nitrogen 21 mg/dL (8-26) 24 mg/dL (8-26) Creatinine 1.0 mg/dL (0.7-1.3) 1.0 mg/dL (0.7-1.3) Estimated GFR (Cockcroft-Gault) 79.1 79.1 Glucose Level 101 mg/dL (70-99) 106 mg/dL (70-99) Calcium Level 7.9 mg/dL (8.5-10.1) 8.3 mg/dL (8.5-10.1) Magnesium Level 2.1 mg/dL (1.8-2.4) Albumin 4.1 g/dL (3.4-5.0) 3.6 g/dL (3.4-5.0) BUN/Creatinine Ratio 24 (6-20) Total Bilirubin 0.9 mg/dL (0.2-1.0) Aspartate Amino Transf (AST/SGOT) 10 U/L (15-37) Alanine Aminotransferase (ALT/SGPT) 17 U/L (16-63) Alkaline Phosphatase 20 U/L (46-116) Total Protein 4.9 g/dL (6.4-8.2) Albumin/Globulin Ratio 2.8 (1.0-1.7) Laboratory Tests Test 11/29/16 04:05 White Blood Count 16.8 x10^3/uL (4.0-11.0) Red Blood Count 5.34 x10^6/uL (4.30-5.70) Hemoglobin 15.0 g/dL (13.0-17.5) Hematocrit 45.2 % (39.0-53.0) Mean Corpuscular Volume 85 fL (79-100) Mean Corpuscular Hemoglobin 28 pg (25-35) Mean Corpuscular Hemoglobin Concent 33 g/dL (31-37) Red Cell Distribution Width 14.8 % (11.5-14.5) Platelet Count 278 x10^3/uL (140-400) Neutrophils (%) (Auto) 69 % (31-73) Lymphocytes (%) (Auto) 18 % (24-48) Monocytes (%) (Auto) 11 % (0-9) Eosinophils (%) (Auto) 1 % (0-3) Basophils (%) (Auto) 1 % (0-3) Neutrophils # (Auto) 11.6 x10^3uL (1.8-7.7) Lymphocytes # (Auto) 3.0 x10^3/uL (1.0-4.8) Monocytes # (Auto) 1.9 x10^3/uL (0.0-1.1) Eosinophils # (Auto) 0.2 x10^3/uL (0.0-0.7) Basophils # (Auto) 0.1 x10^3/uL (0.0-0.2) Prothrombin Time 15.5 SEC (11.7-14.0) Prothromb Time International Ratio 1.3 (0.8-1.1) Activated Partial Thromboplast Time 33 SEC (24-38) Fibrinogen 188 mg/dL (200-440) Sodium Level 141 mmol/L (136-145) Potassium Level 3.5 mmol/L (3.5-5.1) Chloride Level 107 mmol/L (98-107) Carbon Dioxide Level 25 mmol/L (21-32) Anion Gap 9 (6-14) Blood Urea Nitrogen 24 mg/dL (8-26) Creatinine 1.0 mg/dL (0.7-1.3) Estimated GFR (Cockcroft-Gault) 79.1 BUN/Creatinine Ratio 24 (6-20) Glucose Level 106 mg/dL (70-99) Calcium Level 8.3 mg/dL (8.5-10.1) Total Bilirubin 0.9 mg/dL (0.2-1.0) Aspartate Amino Transf (AST/SGOT) 10 U/L (15-37) Alanine Aminotransferase (ALT/SGPT) 17 U/L (16-63) Alkaline Phosphatase 20 U/L (46-116) Total Protein 4.9 g/dL (6.4-8.2) Albumin 3.6 g/dL (3.4-5.0) Albumin/Globulin Ratio 2.8 (1.0-1.7) Microbiology 11/26/16 Anaerobic/Aerobic Culture, Resulted Pending 11/26/16 Anaerobic Culture Result 1 (ANILA), Resulted Pending 11/26/16 Aerobic Culture - Final, Resulted 11/26/16 Aerobic Culture Result 1 (ANILA) - Final, Resulted 11/25/16 Urine Culture - Final, Complete 11/25/16 Urine Culture Result 1 (ANILA) - Final, Complete Medications Current Medications Lorazepam (Ativan) 2 mg 1X ONCE IV Last administered on 11/25/16 16:15; Start 11/25/16 at 16:15; Stop 11/25/16 at 16:16; Status DC Lorazepam (Ativan) 2 mg 1X ONCE IV Last administered on 11/25/16 16:47; Start 11/25/16 at 16:45; Stop 11/25/16 at 16:46; Status DC Lidocaine HCl 20 ml STK-MED ONCE .ROUTE ; Start 11/25/16 at 19:13; Stop at 19:14; Status DC Ondansetron HCl (Zofran) 4 mg PRN Q8HRS PRN IV NAUSEA/VOMITING; Start at 20:45; Stop 11/26/16 at 20:44; Status DC Sodium Chloride 1,000 ml @ 150 mls/hr Q6H40M IV Last administered on 11:34; Start 11/25/16 at 20:42; Stop 11/26/16 at 20:41; Status DC Potassium Chloride (Klor-Con) 40 meq 1X ONCE PO Last administered on 09:14; Start 11/26/16 at 07:45; Stop 11/26/16 at 07:46; Status DC Lidocaine/Sodium Bicarbonate (Buffered Lidocaine 1%) 20 ml 1X ONCE IJ Last administered on 11/26/16 14:14; Start 11/26/16 at 12:45; Stop 11/26/16 at 12 :46; Status DC Lidocaine/Sodium Bicarbonate (Buffered Lidocaine 1%) 3 ml 1X ONCE IJ Last administered on 11/26/16 16:15; Start 11/26/16 at 16:15; Stop 11/26/16 at 16 :16; Status DC Heparin Sodium/ Sodium Chloride 60 unit 1X ONCE IV Last administered on 16:15; Start 11/26/16 at 16:15; Stop 11/26/16 at 16:16; Status DC Heparin Sodium (Porcine) (Heparin Sodium) 2,500 unit 1X ONCE INT CAT Last administered on 11/26/16 16:15; Start 11/26/16 at 16:15; Stop 11/26/16 at 16 :16; Status DC Lidocaine/Sodium Bicarbonate (Buffered Lidocaine 1%) 20 ml STK-MED ONCE IJ ; Start 11/26/16 at 16:22; Stop 11/26/16 at 16:23; Status DC Heparin Sodium (Porcine) (Heparin Sodium) 10,000 unit STK-MED ONCE .ROUTE ; Start 11/26/16 at 16:22; Stop 11/26/16 at 16:23; Status DC Heparin Sodium/ Sodium Chloride 500 ml @ As Directed STK-MED ONCE .ROUTE ; Start 11/26/16 at 16:22; Stop 11/26/16 at 16:23; Status DC Labetalol HCl (Normodyne) 10 mg PRN Q2HR PRN IVP HYPERTENSION, SEE COMMENTS Last administered on 11/27/16 15:08; Start 11/26/16 at 17:30 Allopurinol (Zyloprim) 100 mg DAILY PO Last administered on 11/29/16 08:04; Start 11/27/16 at 09:00 Benzonatate (Tessalon Perle) 100 mg TID PO Last administered on 11/29/16 08: 08; Start 11/26/16 at 21:00 Levothyroxine Sodium (Synthroid) 50 mcg DAILY07 PO Last administered on 06:33; Start 11/27/16 at 07:00 Metformin HCl (Glucophage) 850 mg DAILYWBKFT PO Last administered on 08:04; Start 11/27/16 at 08:00 Metoprolol Succinate (Toprol Xl) 25 mg DAILY PO Last administered on 08:19; Start 11/27/16 at 09:00 Losartan Potassium (Cozaar) 100 mg DAILY PO Last administered on 11/29/16 08: 03; Start 11/27/16 at 09:00 Famotidine (Pepcid) 20 mg BID PO Last administered on 11/29/16 08:04; Start 11/26/16 at 21:00 Hydrochlorothiazide (Microzide) 12.5 mg DAILY PO Last administered on 08:04; Start 11/27/16 at 09:00 Albumin Human/ Albumin Human 4,600 ml @ 766.667 mls/hr 1X ONCE IV ; Start at 19:45; Stop 11/26/16 at 19:45; Status DC Sodium Chloride 2,200 ml @ 366.667 mls/hr Q6H IV Last administered on 22:30; Start 11/26/16 at 19:45; Stop 11/27/16 at 01:44; Status DC Albumin Human/ Albumin Human 4,600 ml @ 766.667 mls/hr 1X ONCE IV Last administered on 11/26/16 19:45; Start 11/26/16 at 19:45; Stop 11/27/16 at 01 :44; Status DC Heparin Sodium (Porcine) (Heparin Sodium) 5,000 unit 1X ONCE IV Last administered on 11/27/16 12:54; Start 11/26/16 at 19:45; Stop 11/26/16 at 19 :46; Status DC Morphine Sulfate 2 mg PRN Q2HR PRN IV MODERATE PAIN Last administered on 21:11; Start 11/26/16 at 20:45 Fentanyl Citrate (Fentanyl 2ml Vial) 50 mcg PRN Q2HR PRN IV SEVERE PAIN; Start 11/26/16 at 20:45 Acetaminophen/ Hydrocodone Bitart (Lortab 5/325) 1 tab PRN Q4HRS PRN PO PAIN; Start 11/26/16 at 20:45 Acetaminophen/ Hydrocodone Bitart (Lortab 10/325) 1 tab PRN Q6HRS PRN PO SEVERE PAIN Last administered on 11/28/16 08:20; Start 11/26/16 at 20:45 Lorazepam (Ativan) 0.5 mg PRN Q8HRS PRN PO ANXIETY / AGITATION Last administered on 11/27/16 20:23; Start 11/26/16 at 21:15 Lorazepam (Ativan) 1 mg PRN Q4HRS PRN IV ANXIETY / AGITATION Last administered on 11/29/16 10:21; Start 11/26/16 at 21:15 Ondansetron HCl (Zofran) 4 mg PRN Q6HRS PRN IV NAUSEA/VOMITING 1ST CHOICE; Start 11/26/16 at 23:00 Prochlorperazine Edisylate (Compazine) 10 mg PRN Q6HRS PRN IV NAUSEA/VOMITING 2ND CHOICE; Start 11/26/16 at 23:00 Albuterol Sulfate (Ventolin Neb Soln) 2.5 mg 1X ONCE NEB Last administered on 11/26/16 23:43; Start 11/26/16 at 23:45; Stop 11/26/16 at 23:46; Status DC Albuterol/ Ipratropium (Duoneb) 3 ml RTQID NEB Last administered on 11/29/16 08:25; Start 11/27/16 at 08:00 Furosemide (Lasix) 20 mg 1X ONCE IVP Last administered on 11/27/16 00:24; Start 11/27/16 at 00:30; Stop 11/27/16 at 00:31; Status DC Albumin Human 4,000 ml @ 666.667 mls/hr 1X ONCE IV Last administered on 11/28 10:06; Start 11/27/16 at 11:00; Stop 11/27/16 at 16:59; Status DC Sodium Chloride 2,000 ml @ 333.333 mls/hr Q6H IV ; Start 11/27/16 at 11:00; Stop 11/28/16 at 07:02; Status DC Enoxaparin Sodium (Lovenox 60mg Syringe) 60 mg Q12HR SQ Last administered on 08:05; Start 11/27/16 at 11:00 Heparin Sodium (Porcine) (Heparin Sodium) 5,000 unit 1X ONCE IV Last administered on 11/27/16 15:07; Start 11/27/16 at 11:00; Stop 11/27/16 at 11 :01; Status DC Perflutren Protein Type A Microsphe (Optison) 0.66 mg 1X ONCE IV Last administered on 11/27/16 11:50; Start 11/27/16 at 11:30; Stop 11/27/16 at 11 :31; Status DC Calcium Gluconate 2000 mg/Sodium Chloride 120 ml @ 220 mls/hr 1X ONCE IV Last administered on 11/27/16 12:51; Start 11/27/16 at 13:00; Stop 11/27/16 at 13:32; Status DC Albumin Human 4,000 ml @ 125 mls/hr 1X ONCE IV Last administered on 09:29; Start 11/28/16 at 08:00; Stop 11/29/16 at 15:59 Sodium Chloride 2,000 ml @ 0 mls/hr Q0M IV ; Start 11/28/16 at 08:00 Heparin Sodium (Porcine) (Heparin Sodium) 5,000 unit 1X ONCE IV Last administered on 11/28/16 09:28; Start 11/28/16 at 08:00; Stop 11/28/16 at 08 :01; Status DC Heparin Sodium (Porcine) (Heparin Sodium) 5,000 unit 1X ONCE IV ; Start at 10:00; Stop 11/28/16 at 10:07; Status DC Gadobutrol (Gadavist) 7 mmol 1X ONCE IV Last administered on 11/28/16 15:05 ; Start 11/28/16 at 15:00; Stop 11/28/16 at 15:04; Status DC Gadobutrol (Gadavist) 7 mmol 1X ONCE IV Last administered on 11/28/16 15:06 ; Start 11/28/16 at 15:00; Stop 11/28/16 at 15:04; Status DC Albumin Human 3,400 ml @ 500 mls/hr 1X ONCE IV Last administered on 09:58; Start 11/29/16 at 08:00; Stop 11/29/16 at 14:47 Sodium Chloride 1,000 ml @ 100 mls/hr Q10H IV ; Start 11/29/16 at 08:00; Stop 11/30/16 at 03:59 Potassium Chloride 50 ml @ 50 mls/hr Q1H IV Last administered on 11/29/16 10: 33; Start 11/29/16 at 10:30; Stop 11/29/16 at 12:29 Heparin Sodium (Porcine) (Heparin Sodium) 10,000 unit STK-MED ONCE .ROUTE ; Start 11/29/16 at 10:16; Stop 11/29/16 at 10:17; Status DC Active Scripts Active Reported Tessalon Perle (Benzonatate) 100 Mg Capsule 1 Cap PO TID Metformin Hcl 850 Mg Tablet 750 Mg PO DAILY Metoprolol Succinate ( Xl ) (Metoprolol Succinate) 25 Mg Tab.er.24h 1 Tab PO DAILY Losartan-Hctz 100-12.5 Mg Tab (Losartan/Hydrochlorothiazide) 1 Each Tablet 1 Tab PO DAILY Allopurinol 100 Mg Tablet 1 Tab PO DAILY Synthroid (Levothyroxine Sodium) 50 Mcg Tablet 1 Tab PO DAILY Zantac (Ranitidine Hcl) 150 Mg Tablet 1 Tab PO BID Vitals/I & O Vital Sign - Last 24 Hours 11/28/16 11/28/16 11/28/16 11/28/16 11:00 12:00 12:00 13:00 Temp 98.1 98.1 Pulse 86 84 96 Resp 23 20 22 B/P (MAP) 152/76 (101) 153/83 (106) 98/66 (77) Pulse Ox 98 96 99 O2 Delivery Room Air Room Air Room Air Room Air 11/28/16 11/28/16 11/28/16 11/28/16 14:00 15:49 16:00 16:00 Temp 97.8 97.8 Pulse 86 95 Resp 22 18 B/P (MAP) 160/85 (110) 109/73 (85) Pulse Ox 96 97 96 O2 Delivery Room Air Room Air Room Air Room Air O2 Flow Rate 11/28/16 11/28/16 11/28/16 11/28/16 17:00 18:00 19:00 20:00 Temp 99.0 99.0 Pulse 91 92 92 Resp 19 14 23 B/P (MAP) 108/71 (83) 154/80 (104) 101/72 (82) Pulse Ox 97 98 99 O2 Delivery Room Air Room Air BiPAP/CPAP Room Air 11/28/16 11/28/16 11/28/16 11/28/16 20:00 21:00 22:00 23:00 Temp 98.4 98.4 Pulse 92 92 100 82 Resp 16 16 14 14 B/P (MAP) 138/78 (98) 104/56 (72) 115/64 (81) 123/63 (83) Pulse Ox 99 99 100 100 O2 Delivery BiPAP/CPAP BiPAP/CPAP BiPAP/CPAP BiPAP/CPAP 11/29/16 11/29/16 11/29/16 11/29/16 00:00 00:00 00:10 01:00 Pulse 94 82 Resp 14 16 B/P (MAP) 106/62 (77) 124/59 (80) Pulse Ox 99 100 99 O2 Delivery BiPAP/CPAP Bi-pap BiPAP/CPAP BiPAP/CPAP 11/29/16 11/29/16 11/29/16 11/29/16 02:00 02:45 03:00 04:00 Temp 99.0 99.0 Pulse 89 88 Resp 15 16 B/P (MAP) 117/63 (81) 110/64 (79) Pulse Ox 99 97 95 O2 Delivery BiPAP/CPAP BiPAP/CPAP Room Air Room Air 11/29/16 11/29/16 11/29/16 11/29/16 04:00 05:00 06:00 07:00 Pulse 92 93 93 82 Resp 16 21 15 14 B/P (MAP) 107/57 (74) 87/57 (67) 112/65 (81) 115/61 (79) Pulse Ox 94 95 100 99 O2 Delivery Room Air BiPAP/CPAP BiPAP/CPAP BiPAP/CPAP 11/29/16 11/29/16 11/29/16 11/29/16 08:00 08:00 08:03 08:05 Temp 98.2 98.2 Pulse 96 82 98 Resp 17 B/P (MAP) 86/63 (71) 115/61 86/63 Pulse Ox 96 O2 Delivery Bi-pap Room Air 11/29/16 11/29/16 11/29/16 08:18 09:00 10:00 Pulse 110 93 Resp 18 17 B/P (MAP) 134/66 (88) 122/61 (81) Pulse Ox 96 96 97 O2 Delivery Room Air Room Air Room Air Intake and Output 11/29/16 11/29/16 11/30/16 15:00 23:00 07:00 Intake Total 150 ml Output Total 400 ml Balance -250 ml Images C-spine MRI w/o contrast on 11/25/16: mild stenosis and degenerative changes. No cord abnormality found. CSF on 11/26/16: WBC 0, protein 115.5. Gram stain: no organism. Brain MRI w/wo contrast on 11/28/16: No acute abnormal findings. ENRRIQUE MELO MD Nov 29, 2016 10:45
--- NOTE | 2016-11-29 11:21 | PDOC ---
PROGRESS NOTES Chief Complaint Chief Complaint Guillian [place] Generalized weakness Numbness in hands and feet AMSN Diabetes, hypertension, gout, obesity, appendectomy, wrist and knee surgery. History of Present Illness History of Present Illness Pt seen at bedside in the ICU. Numbness and weakness improving. Less SOB today. No CP or abd pain. Neuro is following. Currently on Plasmaphoresis Dw RN and daughter. Vitals Vitals Vital Signs Date Time Temp Pulse Resp B/P (MAP) Pulse Ox O2 Delivery O2 Flow Rate FiO2 11/29/16 11:00 106 20 107/73 (84) 99 Room Air 11/29/16 08:00 98.2 98.2 11/28/16 15:49 Physical Exam Physical Exam Neuro: Hand and feet numb and has slurred speach General: Alert, Oriented X3, Cooperative, No acute distress, Other (Weak) Heart: Regular rate, Normal S1, Normal S2, No murmurs, Gallops Lungs: Clear Abdomen: Normal bowel sounds, Soft, No tenderness, No hepatosplenomegaly, No masses Extremities: No clubbing, No cyanosis, No edema, Normal pulses, No tenderness/ swelling Skin: No rashes, No significant lesion Labs LABS Laboratory Tests Test 11/29/16 04:05 White Blood Count 16.8 x10^3/uL (4.0-11.0) Red Blood Count 5.34 x10^6/uL (4.30-5.70) Hemoglobin 15.0 g/dL (13.0-17.5) Hematocrit 45.2 % (39.0-53.0) Mean Corpuscular Volume 85 fL (79-100) Mean Corpuscular Hemoglobin 28 pg (25-35) Mean Corpuscular Hemoglobin Concent 33 g/dL (31-37) Red Cell Distribution Width 14.8 % (11.5-14.5) Platelet Count 278 x10^3/uL (140-400) Neutrophils (%) (Auto) 69 % (31-73) Lymphocytes (%) (Auto) 18 % (24-48) Monocytes (%) (Auto) 11 % (0-9) Eosinophils (%) (Auto) 1 % (0-3) Basophils (%) (Auto) 1 % (0-3) Neutrophils # (Auto) 11.6 x10^3uL (1.8-7.7) Lymphocytes # (Auto) 3.0 x10^3/uL (1.0-4.8) Monocytes # (Auto) 1.9 x10^3/uL (0.0-1.1) Eosinophils # (Auto) 0.2 x10^3/uL (0.0-0.7) Basophils # (Auto) 0.1 x10^3/uL (0.0-0.2) Prothrombin Time 15.5 SEC (11.7-14.0) Prothromb Time International Ratio 1.3 (0.8-1.1) Activated Partial Thromboplast Time 33 SEC (24-38) Fibrinogen 188 mg/dL (200-440) Sodium Level 141 mmol/L (136-145) Potassium Level 3.5 mmol/L (3.5-5.1) Chloride Level 107 mmol/L (98-107) Carbon Dioxide Level 25 mmol/L (21-32) Anion Gap 9 (6-14) Blood Urea Nitrogen 24 mg/dL (8-26) Creatinine 1.0 mg/dL (0.7-1.3) Estimated GFR (Cockcroft-Gault) 79.1 BUN/Creatinine Ratio 24 (6-20) Glucose Level 106 mg/dL (70-99) Calcium Level 8.3 mg/dL (8.5-10.1) Total Bilirubin 0.9 mg/dL (0.2-1.0) Aspartate Amino Transf (AST/SGOT) 10 U/L (15-37) Alanine Aminotransferase (ALT/SGPT) 17 U/L (16-63) Alkaline Phosphatase 20 U/L (46-116) Total Protein 4.9 g/dL (6.4-8.2) Albumin 3.6 g/dL (3.4-5.0) Albumin/Globulin Ratio 2.8 (1.0-1.7) Review of Systems Review of Systems Co weakness co depression Assessment and Plan Assessmemt and Plan Problems Medical Problems: (1) Bilateral finger numbness Status: Acute (2) Numbness and tingling of both feet Status: Acute (3) Weakness Status: Acute [place]illian [place] Generalized weakness Numbness in hands and feet AMSN Diabetes, hypertension, gout, obesity, appendectomy, wrist and knee surgery. Plan Plasmaphoresis x 5 days ICU monitoring PTOTST Labs Home meds Appreciate subspecialist input SNU eval Total time 31 minutes Problems: Comment Review of Relevant I have reviewed the following items jada (where applicable) has been applied. Labs Laboratory Tests Test 11/28/16 03:33 11/29/16 04:05 White Blood Count 18.3 x10^3/uL (4.0-11.0) 16.8 x10^3/uL (4.0-11.0) Red Blood Count 5.60 x10^6/uL (4.30-5.70) 5.34 x10^6/uL (4.30-5.70) Hemoglobin 15.6 g/dL (13.0-17.5) 15.0 g/dL (13.0-17.5) Hematocrit 47.7 % (39.0-53.0) 45.2 % (39.0-53.0) Mean Corpuscular Volume 85 fL (79-100) 85 fL (79-100) Mean Corpuscular Hemoglobin 28 pg (25-35) 28 pg (25-35) Mean Corpuscular Hemoglobin Concent 33 g/dL (31-37) 33 g/dL (31-37) Red Cell Distribution Width 14.3 % (11.5-14.5) 14.8 % (11.5-14.5) Platelet Count 300 x10^3/uL (140-400) 278 x10^3/uL (140-400) Neutrophils (%) (Auto) 73 % (31-73) 69 % (31-73) Lymphocytes (%) (Auto) 16 % (24-48) 18 % (24-48) Monocytes (%) (Auto) 11 % (0-9) 11 % (0-9) Eosinophils (%) (Auto) 1 % (0-3) 1 % (0-3) Basophils (%) (Auto) 0 % (0-3) 1 % (0-3) Neutrophils # (Auto) 13.3 x10^3uL (1.8-7.7) 11.6 x10^3uL (1.8-7.7) Lymphocytes # (Auto) 2.9 x10^3/uL (1.0-4.8) 3.0 x10^3/uL (1.0-4.8) Monocytes # (Auto) 1.9 x10^3/uL (0.0-1.1) 1.9 x10^3/uL (0.0-1.1) Eosinophils # (Auto) 0.1 x10^3/uL (0.0-0.7) 0.2 x10^3/uL (0.0-0.7) Basophils # (Auto) 0.0 x10^3/uL (0.0-0.2) 0.1 x10^3/uL (0.0-0.2) Prothrombin Time 16.3 SEC (11.7-14.0) 15.5 SEC (11.7-14.0) Prothromb Time International Ratio 1.4 (0.8-1.1) 1.3 (0.8-1.1) Activated Partial Thromboplast Time 35 SEC (24-38) 33 SEC (24-38) Fibrinogen 139 mg/dL (200-440) 188 mg/dL (200-440) Sodium Level 140 mmol/L (136-145) 141 mmol/L (136-145) Potassium Level 3.7 mmol/L (3.5-5.1) 3.5 mmol/L (3.5-5.1) Chloride Level 107 mmol/L (98-107) 107 mmol/L (98-107) Carbon Dioxide Level 24 mmol/L (21-32) 25 mmol/L (21-32) Anion Gap 9 (6-14) 9 (6-14) Blood Urea Nitrogen 21 mg/dL (8-26) 24 mg/dL (8-26) Creatinine 1.0 mg/dL (0.7-1.3) 1.0 mg/dL (0.7-1.3) Estimated GFR (Cockcroft-Gault) 79.1 79.1 Glucose Level 101 mg/dL (70-99) 106 mg/dL (70-99) Calcium Level 7.9 mg/dL (8.5-10.1) 8.3 mg/dL (8.5-10.1) Magnesium Level 2.1 mg/dL (1.8-2.4) Albumin 4.1 g/dL (3.4-5.0) 3.6 g/dL (3.4-5.0) BUN/Creatinine Ratio 24 (6-20) Total Bilirubin 0.9 mg/dL (0.2-1.0) Aspartate Amino Transf (AST/SGOT) 10 U/L (15-37) Alanine Aminotransferase (ALT/SGPT) 17 U/L (16-63) Alkaline Phosphatase 20 U/L (46-116) Total Protein 4.9 g/dL (6.4-8.2) Albumin/Globulin Ratio 2.8 (1.0-1.7) Laboratory Tests Test 11/29/16 04:05 White Blood Count 16.8 x10^3/uL (4.0-11.0) Red Blood Count 5.34 x10^6/uL (4.30-5.70) Hemoglobin 15.0 g/dL (13.0-17.5) Hematocrit 45.2 % (39.0-53.0) Mean Corpuscular Volume 85 fL (79-100) Mean Corpuscular Hemoglobin 28 pg (25-35) Mean Corpuscular Hemoglobin Concent 33 g/dL (31-37) Red Cell Distribution Width 14.8 % (11.5-14.5) Platelet Count 278 x10^3/uL (140-400) Neutrophils (%) (Auto) 69 % (31-73) Lymphocytes (%) (Auto) 18 % (24-48) Monocytes (%) (Auto) 11 % (0-9) Eosinophils (%) (Auto) 1 % (0-3) Basophils (%) (Auto) 1 % (0-3) Neutrophils # (Auto) 11.6 x10^3uL (1.8-7.7) Lymphocytes # (Auto) 3.0 x10^3/uL (1.0-4.8) Monocytes # (Auto) 1.9 x10^3/uL (0.0-1.1) Eosinophils # (Auto) 0.2 x10^3/uL (0.0-0.7) Basophils # (Auto) 0.1 x10^3/uL (0.0-0.2) Prothrombin Time 15.5 SEC (11.7-14.0) Prothromb Time International Ratio 1.3 (0.8-1.1) Activated Partial Thromboplast Time 33 SEC (24-38) Fibrinogen 188 mg/dL (200-440) Sodium Level 141 mmol/L (136-145) Potassium Level 3.5 mmol/L (3.5-5.1) Chloride Level 107 mmol/L (98-107) Carbon Dioxide Level 25 mmol/L (21-32) Anion Gap 9 (6-14) Blood Urea Nitrogen 24 mg/dL (8-26) Creatinine 1.0 mg/dL (0.7-1.3) Estimated GFR (Cockcroft-Gault) 79.1 BUN/Creatinine Ratio 24 (6-20) Glucose Level 106 mg/dL (70-99) Calcium Level 8.3 mg/dL (8.5-10.1) Total Bilirubin 0.9 mg/dL (0.2-1.0) Aspartate Amino Transf (AST/SGOT) 10 U/L (15-37) Alanine Aminotransferase (ALT/SGPT) 17 U/L (16-63) Alkaline Phosphatase 20 U/L (46-116) Total Protein 4.9 g/dL (6.4-8.2) Albumin 3.6 g/dL (3.4-5.0) Albumin/Globulin Ratio 2.8 (1.0-1.7) Microbiology 11/26/16 Anaerobic/Aerobic Culture, Resulted Pending 11/26/16 Anaerobic Culture Result 1 (ANILA), Resulted Pending 11/26/16 Aerobic Culture - Final, Resulted 11/26/16 Aerobic Culture Result 1 (ANILA) - Final, Resulted 11/25/16 Urine Culture - Final, Complete 11/25/16 Urine Culture Result 1 (ANILA) - Final, Complete Medications Current Medications Lorazepam (Ativan) 2 mg 1X ONCE IV Last administered on 11/25/16 16:15; Start 11/25/16 at 16:15; Stop 11/25/16 at 16:16; Status DC Lorazepam (Ativan) 2 mg 1X ONCE IV Last administered on 11/25/16 16:47; Start 11/25/16 at 16:45; Stop 11/25/16 at 16:46; Status DC Lidocaine HCl 20 ml STK-MED ONCE .ROUTE ; Start 11/25/16 at 19:13; Stop at 19:14; Status DC Ondansetron HCl (Zofran) 4 mg PRN Q8HRS PRN IV NAUSEA/VOMITING; Start at 20:45; Stop 11/26/16 at 20:44; Status DC Sodium Chloride 1,000 ml @ 150 mls/hr Q6H40M IV Last administered on 11:34; Start 11/25/16 at 20:42; Stop 11/26/16 at 20:41; Status DC Potassium Chloride (Klor-Con) 40 meq 1X ONCE PO Last administered on 09:14; Start 11/26/16 at 07:45; Stop 11/26/16 at 07:46; Status DC Lidocaine/Sodium Bicarbonate (Buffered Lidocaine 1%) 20 ml 1X ONCE IJ Last administered on 11/26/16 14:14; Start 11/26/16 at 12:45; Stop 11/26/16 at 12 :46; Status DC Lidocaine/Sodium Bicarbonate (Buffered Lidocaine 1%) 3 ml 1X ONCE IJ Last administered on 11/26/16 16:15; Start 11/26/16 at 16:15; Stop 11/26/16 at 16 :16; Status DC Heparin Sodium/ Sodium Chloride 60 unit 1X ONCE IV Last administered on 16:15; Start 11/26/16 at 16:15; Stop 11/26/16 at 16:16; Status DC Heparin Sodium (Porcine) (Heparin Sodium) 2,500 unit 1X ONCE INT CAT Last administered on 11/26/16 16:15; Start 11/26/16 at 16:15; Stop 11/26/16 at 16 :16; Status DC Lidocaine/Sodium Bicarbonate (Buffered Lidocaine 1%) 20 ml STK-MED ONCE IJ ; Start 11/26/16 at 16:22; Stop 11/26/16 at 16:23; Status DC Heparin Sodium (Porcine) (Heparin Sodium) 10,000 unit STK-MED ONCE .ROUTE ; Start 11/26/16 at 16:22; Stop 11/26/16 at 16:23; Status DC Heparin Sodium/ Sodium Chloride 500 ml @ As Directed STK-MED ONCE .ROUTE ; Start 11/26/16 at 16:22; Stop 11/26/16 at 16:23; Status DC Labetalol HCl (Normodyne) 10 mg PRN Q2HR PRN IVP HYPERTENSION, SEE COMMENTS Last administered on 11/27/16 15:08; Start 11/26/16 at 17:30 Allopurinol (Zyloprim) 100 mg DAILY PO Last administered on 11/29/16 08:04; Start 11/27/16 at 09:00 Benzonatate (Tessalon Perle) 100 mg TID PO Last administered on 11/29/16 08: 08; Start 11/26/16 at 21:00 Levothyroxine Sodium (Synthroid) 50 mcg DAILY07 PO Last administered on 06:33; Start 11/27/16 at 07:00 Metformin HCl (Glucophage) 850 mg DAILYWBKFT PO Last administered on 08:04; Start 11/27/16 at 08:00 Metoprolol Succinate (Toprol Xl) 25 mg DAILY PO Last administered on 08:19; Start 11/27/16 at 09:00 Losartan Potassium (Cozaar) 100 mg DAILY PO Last administered on 11/29/16 08: 03; Start 11/27/16 at 09:00 Famotidine (Pepcid) 20 mg BID PO Last administered on 11/29/16 08:04; Start 11/26/16 at 21:00 Hydrochlorothiazide (Microzide) 12.5 mg DAILY PO Last administered on 08:04; Start 11/27/16 at 09:00 Albumin Human/ Albumin Human 4,600 ml @ 766.667 mls/hr 1X ONCE IV ; Start at 19:45; Stop 11/26/16 at 19:45; Status DC Sodium Chloride 2,200 ml @ 366.667 mls/hr Q6H IV Last administered on 22:30; Start 11/26/16 at 19:45; Stop 11/27/16 at 01:44; Status DC Albumin Human/ Albumin Human 4,600 ml @ 766.667 mls/hr 1X ONCE IV Last administered on 11/26/16 19:45; Start 11/26/16 at 19:45; Stop 11/27/16 at 01 :44; Status DC Heparin Sodium (Porcine) (Heparin Sodium) 5,000 unit 1X ONCE IV Last administered on 11/27/16 12:54; Start 11/26/16 at 19:45; Stop 11/26/16 at 19 :46; Status DC Morphine Sulfate 2 mg PRN Q2HR PRN IV MODERATE PAIN Last administered on 21:11; Start 11/26/16 at 20:45 Fentanyl Citrate (Fentanyl 2ml Vial) 50 mcg PRN Q2HR PRN IV SEVERE PAIN; Start 11/26/16 at 20:45 Acetaminophen/ Hydrocodone Bitart (Lortab 5/325) 1 tab PRN Q4HRS PRN PO PAIN; Start 11/26/16 at 20:45 Acetaminophen/ Hydrocodone Bitart (Lortab 10/325) 1 tab PRN Q6HRS PRN PO SEVERE PAIN Last administered on 11/28/16 08:20; Start 11/26/16 at 20:45 Lorazepam (Ativan) 0.5 mg PRN Q8HRS PRN PO ANXIETY / AGITATION Last administered on 11/27/16 20:23; Start 11/26/16 at 21:15 Lorazepam (Ativan) 1 mg PRN Q4HRS PRN IV ANXIETY / AGITATION Last administered on 11/29/16 10:21; Start 11/26/16 at 21:15 Ondansetron HCl (Zofran) 4 mg PRN Q6HRS PRN IV NAUSEA/VOMITING 1ST CHOICE; Start 11/26/16 at 23:00 Prochlorperazine Edisylate (Compazine) 10 mg PRN Q6HRS PRN IV NAUSEA/VOMITING 2ND CHOICE; Start 11/26/16 at 23:00 Albuterol Sulfate (Ventolin Neb Soln) 2.5 mg 1X ONCE NEB Last administered on 11/26/16 23:43; Start 11/26/16 at 23:45; Stop 11/26/16 at 23:46; Status DC Albuterol/ Ipratropium (Duoneb) 3 ml RTQID NEB Last administered on 11/29/16 08:25; Start 11/27/16 at 08:00 Furosemide (Lasix) 20 mg 1X ONCE IVP Last administered on 11/27/16 00:24; Start 11/27/16 at 00:30; Stop 11/27/16 at 00:31; Status DC Albumin Human 4,000 ml @ 666.667 mls/hr 1X ONCE IV Last administered on 11/28 10:06; Start 11/27/16 at 11:00; Stop 11/27/16 at 16:59; Status DC Sodium Chloride 2,000 ml @ 333.333 mls/hr Q6H IV ; Start 11/27/16 at 11:00; Stop 11/28/16 at 07:02; Status DC Enoxaparin Sodium (Lovenox 60mg Syringe) 60 mg Q12HR SQ Last administered on 08:05; Start 11/27/16 at 11:00 Heparin Sodium (Porcine) (Heparin Sodium) 5,000 unit 1X ONCE IV Last administered on 11/27/16 15:07; Start 11/27/16 at 11:00; Stop 11/27/16 at 11 :01; Status DC Perflutren Protein Type A Microsphe (Optison) 0.66 mg 1X ONCE IV Last administered on 11/27/16 11:50; Start 11/27/16 at 11:30; Stop 11/27/16 at 11 :31; Status DC Calcium Gluconate 2000 mg/Sodium Chloride 120 ml @ 220 mls/hr 1X ONCE IV Last administered on 11/27/16 12:51; Start 11/27/16 at 13:00; Stop 11/27/16 at 13:32; Status DC Albumin Human 4,000 ml @ 125 mls/hr 1X ONCE IV Last administered on 09:29; Start 11/28/16 at 08:00; Stop 11/29/16 at 15:59 Sodium Chloride 2,000 ml @ 0 mls/hr Q0M IV ; Start 11/28/16 at 08:00 Heparin Sodium (Porcine) (Heparin Sodium) 5,000 unit 1X ONCE IV Last administered on 11/28/16 09:28; Start 11/28/16 at 08:00; Stop 11/28/16 at 08 :01; Status DC Heparin Sodium (Porcine) (Heparin Sodium) 5,000 unit 1X ONCE IV ; Start at 10:00; Stop 11/28/16 at 10:07; Status DC Gadobutrol (Gadavist) 7 mmol 1X ONCE IV Last administered on 11/28/16 15:05 ; Start 11/28/16 at 15:00; Stop 11/28/16 at 15:04; Status DC Gadobutrol (Gadavist) 7 mmol 1X ONCE IV Last administered on 11/28/16 15:06 ; Start 11/28/16 at 15:00; Stop 11/28/16 at 15:04; Status DC Albumin Human 3,400 ml @ 500 mls/hr 1X ONCE IV Last administered on 09:58; Start 11/29/16 at 08:00; Stop 11/29/16 at 14:47 Sodium Chloride 1,000 ml @ 100 mls/hr Q10H IV ; Start 11/29/16 at 08:00; Stop 11/30/16 at 03:59 Potassium Chloride 50 ml @ 50 mls/hr Q1H IV Last administered on 11/29/16 10: 33; Start 11/29/16 at 10:30; Stop 11/29/16 at 12:29 Heparin Sodium (Porcine) (Heparin Sodium) 10,000 unit STK-MED ONCE .ROUTE ; Start 11/29/16 at 10:16; Stop 11/29/16 at 10:17; Status DC Active Scripts Active Reported Tessalon Perle (Benzonatate) 100 Mg Capsule 1 Cap PO TID Metformin Hcl 850 Mg Tablet 750 Mg PO DAILY Metoprolol Succinate ( Xl ) (Metoprolol Succinate) 25 Mg Tab.er.24h 1 Tab PO DAILY Losartan-Hctz 100-12.5 Mg Tab (Losartan/Hydrochlorothiazide) 1 Each Tablet 1 Tab PO DAILY Allopurinol 100 Mg Tablet 1 Tab PO DAILY Synthroid (Levothyroxine Sodium) 50 Mcg Tablet 1 Tab PO DAILY Zantac (Ranitidine Hcl) 150 Mg Tablet 1 Tab PO BID Vitals/I & O Vital Sign - Last 24 Hours 11/28/16 11/28/16 11/28/16 11/28/16 12:00 12:00 13:00 14:00 Temp 98.1 98.1 Pulse 84 96 86 Resp 20 22 22 B/P (MAP) 153/83 (106) 98/66 (77) 160/85 (110) Pulse Ox 96 99 96 O2 Delivery Room Air Room Air Room Air Room Air 11/28/16 11/28/16 11/28/16 11/28/16 15:49 16:00 16:00 17:00 Temp 97.8 97.8 Pulse 95 91 Resp 18 19 B/P (MAP) 109/73 (85) 108/71 (83) Pulse Ox 97 96 97 O2 Delivery Room Air Room Air Room Air Room Air O2 Flow Rate 11/28/16 11/28/16 11/28/16 11/28/16 18:00 19:00 20:00 20:00 Temp 99.0 99.0 Pulse 92 92 92 Resp 14 23 16 B/P (MAP) 154/80 (104) 101/72 (82) 138/78 (98) Pulse Ox 98 99 99 O2 Delivery Room Air BiPAP/CPAP Room Air BiPAP/CPAP 11/28/16 11/28/16 11/28/16 11/29/16 21:00 22:00 23:00 00:00 Temp 98.4 98.4 Pulse 92 100 82 94 Resp 16 14 14 14 B/P (MAP) 104/56 (72) 115/64 (81) 123/63 (83) 106/62 (77) Pulse Ox 99 100 100 99 O2 Delivery BiPAP/CPAP BiPAP/CPAP BiPAP/CPAP BiPAP/CPAP 11/29/16 11/29/16 11/29/16 11/29/16 00:00 00:10 01:00 02:00 Temp 99.0 99.0 Pulse 82 89 Resp 16 15 B/P (MAP) 124/59 (80) 117/63 (81) Pulse Ox 100 99 99 O2 Delivery Bi-pap BiPAP/CPAP BiPAP/CPAP BiPAP/CPAP 11/29/16 11/29/16 11/29/16 11/29/16 02:45 03:00 04:00 04:00 Pulse 88 92 Resp 16 16 B/P (MAP) 110/64 (79) 107/57 (74) Pulse Ox 97 95 94 O2 Delivery BiPAP/CPAP Room Air Room Air Room Air 11/29/16 11/29/16 11/29/16 11/29/16 05:00 06:00 07:00 08:00 Pulse 93 93 82 Resp 21 15 14 B/P (MAP) 87/57 (67) 112/65 (81) 115/61 (79) Pulse Ox 95 100 99 O2 Delivery BiPAP/CPAP BiPAP/CPAP BiPAP/CPAP Bi-pap 11/29/16 11/29/16 11/29/16 11/29/16 08:00 08:03 08:05 08:18 Temp 98.2 98.2 Pulse 96 82 98 Resp 17 B/P (MAP) 86/63 (71) 115/61 86/63 Pulse Ox 96 96 O2 Delivery Room Air Room Air 11/29/16 11/29/16 11/29/16 09:00 10:00 11:00 Pulse 110 93 106 Resp 18 17 20 B/P (MAP) 134/66 (88) 122/61 (81) 107/73 (84) Pulse Ox 96 97 99 O2 Delivery Room Air Room Air Room Air Intake and Output 11/29/16 11/29/16 11/30/16 15:00 23:00 07:00 Intake Total 150 ml Output Total 475 ml Balance -325 ml JUAN LAZO III DO Nov 29, 2016 11:21
--- NOTE | 2016-11-29 11:29 | PDOC ---
PULMONARY PROGRESS NOTES Subjective NO INCREASE SOA WORE BIPAP Vitals Vital Signs Date Time Temp Pulse Resp B/P (MAP) Pulse Ox O2 Delivery O2 Flow Rate FiO2 11/29/16 11:00 106 20 107/73 (84) 99 Room Air 11/29/16 08:00 98.2 98.2 11/28/16 15:49 ROS: No Nausea, No Chest Pain, No Abdominal Pain, No Increase Cough Lungs: Clear Cardiovascular: S1, S2 Abdomen: Soft, Non-tender Neuro Exam: Alert Extremities: No Edema Skin: Warm Labs Laboratory Tests Test 11/28/16 03:33 11/29/16 04:05 White Blood Count 18.3 x10^3/uL (4.0-11.0) 16.8 x10^3/uL (4.0-11.0) Red Blood Count 5.60 x10^6/uL (4.30-5.70) 5.34 x10^6/uL (4.30-5.70) Hemoglobin 15.6 g/dL (13.0-17.5) 15.0 g/dL (13.0-17.5) Hematocrit 47.7 % (39.0-53.0) 45.2 % (39.0-53.0) Mean Corpuscular Volume 85 fL (79-100) 85 fL (79-100) Mean Corpuscular Hemoglobin 28 pg (25-35) 28 pg (25-35) Mean Corpuscular Hemoglobin Concent 33 g/dL (31-37) 33 g/dL (31-37) Red Cell Distribution Width 14.3 % (11.5-14.5) 14.8 % (11.5-14.5) Platelet Count 300 x10^3/uL (140-400) 278 x10^3/uL (140-400) Neutrophils (%) (Auto) 73 % (31-73) 69 % (31-73) Lymphocytes (%) (Auto) 16 % (24-48) 18 % (24-48) Monocytes (%) (Auto) 11 % (0-9) 11 % (0-9) Eosinophils (%) (Auto) 1 % (0-3) 1 % (0-3) Basophils (%) (Auto) 0 % (0-3) 1 % (0-3) Neutrophils # (Auto) 13.3 x10^3uL (1.8-7.7) 11.6 x10^3uL (1.8-7.7) Lymphocytes # (Auto) 2.9 x10^3/uL (1.0-4.8) 3.0 x10^3/uL (1.0-4.8) Monocytes # (Auto) 1.9 x10^3/uL (0.0-1.1) 1.9 x10^3/uL (0.0-1.1) Eosinophils # (Auto) 0.1 x10^3/uL (0.0-0.7) 0.2 x10^3/uL (0.0-0.7) Basophils # (Auto) 0.0 x10^3/uL (0.0-0.2) 0.1 x10^3/uL (0.0-0.2) Prothrombin Time 16.3 SEC (11.7-14.0) 15.5 SEC (11.7-14.0) Prothromb Time International Ratio 1.4 (0.8-1.1) 1.3 (0.8-1.1) Activated Partial Thromboplast Time 35 SEC (24-38) 33 SEC (24-38) Fibrinogen 139 mg/dL (200-440) 188 mg/dL (200-440) Sodium Level 140 mmol/L (136-145) 141 mmol/L (136-145) Potassium Level 3.7 mmol/L (3.5-5.1) 3.5 mmol/L (3.5-5.1) Chloride Level 107 mmol/L (98-107) 107 mmol/L (98-107) Carbon Dioxide Level 24 mmol/L (21-32) 25 mmol/L (21-32) Anion Gap 9 (6-14) 9 (6-14) Blood Urea Nitrogen 21 mg/dL (8-26) 24 mg/dL (8-26) Creatinine 1.0 mg/dL (0.7-1.3) 1.0 mg/dL (0.7-1.3) Estimated GFR (Cockcroft-Gault) 79.1 79.1 Glucose Level 101 mg/dL (70-99) 106 mg/dL (70-99) Calcium Level 7.9 mg/dL (8.5-10.1) 8.3 mg/dL (8.5-10.1) Magnesium Level 2.1 mg/dL (1.8-2.4) Albumin 4.1 g/dL (3.4-5.0) 3.6 g/dL (3.4-5.0) BUN/Creatinine Ratio 24 (6-20) Total Bilirubin 0.9 mg/dL (0.2-1.0) Aspartate Amino Transf (AST/SGOT) 10 U/L (15-37) Alanine Aminotransferase (ALT/SGPT) 17 U/L (16-63) Alkaline Phosphatase 20 U/L (46-116) Total Protein 4.9 g/dL (6.4-8.2) Albumin/Globulin Ratio 2.8 (1.0-1.7) Laboratory Tests Test 11/29/16 04:05 White Blood Count 16.8 x10^3/uL (4.0-11.0) Red Blood Count 5.34 x10^6/uL (4.30-5.70) Hemoglobin 15.0 g/dL (13.0-17.5) Hematocrit 45.2 % (39.0-53.0) Mean Corpuscular Volume 85 fL (79-100) Mean Corpuscular Hemoglobin 28 pg (25-35) Mean Corpuscular Hemoglobin Concent 33 g/dL (31-37) Red Cell Distribution Width 14.8 % (11.5-14.5) Platelet Count 278 x10^3/uL (140-400) Neutrophils (%) (Auto) 69 % (31-73) Lymphocytes (%) (Auto) 18 % (24-48) Monocytes (%) (Auto) 11 % (0-9) Eosinophils (%) (Auto) 1 % (0-3) Basophils (%) (Auto) 1 % (0-3) Neutrophils # (Auto) 11.6 x10^3uL (1.8-7.7) Lymphocytes # (Auto) 3.0 x10^3/uL (1.0-4.8) Monocytes # (Auto) 1.9 x10^3/uL (0.0-1.1) Eosinophils # (Auto) 0.2 x10^3/uL (0.0-0.7) Basophils # (Auto) 0.1 x10^3/uL (0.0-0.2) Prothrombin Time 15.5 SEC (11.7-14.0) Prothromb Time International Ratio 1.3 (0.8-1.1) Activated Partial Thromboplast Time 33 SEC (24-38) Fibrinogen 188 mg/dL (200-440) Sodium Level 141 mmol/L (136-145) Potassium Level 3.5 mmol/L (3.5-5.1) Chloride Level 107 mmol/L (98-107) Carbon Dioxide Level 25 mmol/L (21-32) Anion Gap 9 (6-14) Blood Urea Nitrogen 24 mg/dL (8-26) Creatinine 1.0 mg/dL (0.7-1.3) Estimated GFR (Cockcroft-Gault) 79.1 BUN/Creatinine Ratio 24 (6-20) Glucose Level 106 mg/dL (70-99) Calcium Level 8.3 mg/dL (8.5-10.1) Total Bilirubin 0.9 mg/dL (0.2-1.0) Aspartate Amino Transf (AST/SGOT) 10 U/L (15-37) Alanine Aminotransferase (ALT/SGPT) 17 U/L (16-63) Alkaline Phosphatase 20 U/L (46-116) Total Protein 4.9 g/dL (6.4-8.2) Albumin 3.6 g/dL (3.4-5.0) Albumin/Globulin Ratio 2.8 (1.0-1.7) Medications Active Scripts Medications Dose Route/Sig Max Daily Dose Days Date Category Tessalon Perle (Benzonatate) 100 Mg Capsule 1 Cap PO TID 11/26/16 Reported Metformin Hcl 850 Mg Tablet 750 Mg PO DAILY 11/26/16 Reported Metoprolol Succinate ( Xl ) (Metoprolol Succinate) 25 Mg Tab.er.24h 1 Tab PO DAILY 11/26/16 Reported Losartan-Hctz 100-12.5 Mg Tab (Losartan/Hydrochlorothiazide) 1 Each Tablet 1 Tab PO DAILY 11/26/16 Reported Allopurinol 100 Mg Tablet 1 Tab PO DAILY 11/26/16 Reported Synthroid (Levothyroxine Sodium) 50 Mcg Tablet 1 Tab PO DAILY 11/26/16 Reported Zantac (Ranitidine Hcl) 150 Mg Tablet 1 Tab PO BID 11/26/16 Reported Impression . 1. Acute hypoxemic respiratory failure secondary to neuromuscular disease. GBS 2. Abnormal chest x-ray. 3. Atelectasis. 4. Leukocytosis. 5. Diabetes mellitus. 6. Hypertension. 7. Snoring, excessive daytime sleepiness and obesity, probable obstructive sleep apnea-hypopnea syndrome. . Plan . UNDERGOING PLASMAPHERESIS SPEECH EVAL WILL CONTINUE BIPAP QHS OP SLEEP STUDY 1. Titrate FiO2 to keep O2 saturation 92%. 2. We will support him with BiPAP 3. Follow Neurology recommendation. 4. Continue plasmapheresis for now. 5. DIET ADVANCE 6. Start Lovenox for DVT prophylaxis. 7. Pepcid for stress ulcer prophylaxis. KD BETANCOURT MD Nov 29, 2016 11:29
--- NOTE | 2016-11-29 12:01 | CONS ---
DATE OF CONSULTATION: 11/29/2016 ATTENDING PHYSICIAN: Dr. Murillo. The patient was seen at the request of Dr. Gaona for rehab evaluation. HISTORY OF PRESENT ILLNESS: This is a 50-year-old right-handed male patient who works for [employer]. The patient with known diabetes mellitus, hypertension, gouty arthritis, obesity, appendectomy, right wrist surgery after trauma and also right knee surgery. Not known allergic to any medication. Family history of diabetes mellitus. He lives with his daughters in [facility], had stairs for him to manage with the railing. The patient was admitted on 11/25/2016 with weakness and numbness in his hands and feet and weakness interfering with his ability to get up and walk. He was seen in the Emergency Room on the night before admission, but having increasing discomfort getting around, so he was admitted through the Emergency Room. He apparently got flu shot about 1 or 2 weeks prior to the onset of present problems. 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 The patient does not feel good. He had some problem with orthostasis while working with physical therapy with sitting yesterday. The patient admits some lower back pain. The patient is feeling somewhat better overall. The patient had MRI scan of his brain done, which was within normal limits. Chest x-ray revealed persistent linear atelectasis of right lung base with a small right-sided pleural effusion. Perihilar pulmonary edema has improved. No pneumothorax was seen. This was dated 11/27/2016. Cervical spine MRI scan done on 11/25/2016 revealed degenerative changes throughout the cervical spine without any significant central spinal stenosis. Mild bilateral neural foraminal compromise was seen at C5-C6 level. The patient was also presented with leukocytosis and he had CSF protein 115.5 on 11/26/2016, glucose being 70. PHYSICAL EXAMINATION: Today revealed a middle-aged male. He is alert, oriented to time, place, person and circumstance and follows commands appropriately, moves all 4 extremities voluntarily where he had 4+/5 grade muscle strength with relatively increased weakness in right foot and toe dorsiflexors. Deep tendon reflexes are 1-2+ and symmetrical with absent ankle jerks and he had equal perception of touch and pinprick sensation bilaterally. The patient had crepitus on range of motion on both knee joints without any obvious knee joint effusion. He had pain free range of motion on both hip joints. He is receiving plasmapheresis, so I have not tested his transfer ambulation skills at this time. He had an indwelling Workman catheter in place and receiving IV fluids. His skin is intact at this time. 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 RECOMMENDATIONS: Agree with the plan for physical therapy and occupational therapy to ask for a screen for transfer to rehab unit and to arrange for transfer when he is medically stable later on this week. Dr. Gaona, I appreciate asking me to participate in care of this interesting patient. I will be glad to follow him with you as needed for the rehabilitation. PORTER SORENSEN MD DR: FRANKLIN/concepcion JOB#: [id number] / [id number]
[2016-11-29 13:19] LABS: WEST NILE IGG CSF Negative (Negative); WEST NILE IGM CSF Negative (Negative)
--- NOTE | 2016-11-29 15:20 | PDOC ---
Provider Note Provider Note EMG Report Patient Complaints: Evaluate possible Guillain-[place] Patient History / Exam: See EMR NCV & EMG Findings: Evaluation of the Left peroneal motor nerve showed no response (B Fib), prolonged distal onset latency (12.0 ms), and reduced amplitude (0.1 mV). The Left tibial motor nerve showed prolonged distal onset latency (8.4 ms), reduced amplitude (1.1 mV), and decreased conduction velocity (Knee-Ankle, 33 m/s). The Left sural sensory and the Right sural sensory nerves showed no response ( Calf). Needle evaluation of the Right extensor hallucis longus and the Left extensor hallucis longus muscles showed diminished recruitment and very decreased interference pattern. All remaining muscles (as indicated in the following table) showed no evidence of electrical instability. Impression: 1. 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 Differential diagnosis includes acute or chronic inflammatory neuropathies (e.g. , Guillain [place]), dysproteinemias, thyorid disease, various infections, various medications/toxins, connective-tissue disease, various hereditary causes. 2. There is no sign of lumbosacral radiculopathy on either side. 3. There is no sign of lumbosacral plexopathy on either side. 4. There is no evidence of myopathy affecting the studied extremities. Recommendations: See EMR Thank you very much for letting me help with the patient's care. Enrrique Melo M.D., FAAN Elecctronically authenticated 11/29/2016 3:24:30 PM Cc: Dr. Sorto Nerve Conduction Studies Anti Sensory Summary Table Site NR Onset (ms) Norm Onset (ms) O-P Amp (V) Norm O-P Amp Site1 Site2 Delta- 0 (ms) Dist (cm) Raza (m/s) Norm Raza (m/s) Left Sural Anti Sensory (Lat Mall) Calf NR >5.0 Calf Lat Mall 14.0 >35 Right Sural Anti Sensory (Lat Mall) Calf NR >5.0 Calf Lat Mall 14.0 >35 Motor Summary Table Site NR Onset (ms) Norm Onset (ms) P-T Amp (mV) Norm P-T Amp Site1 Site2 Delta- 0 (ms) Dist (cm) Raza (m/s) Norm Raza (m/s) Left Peroneal Motor (Ext Dig Brev) Ankle 12.0 <4.8 0.1 >4 B Fib Ankle 0.0 >40 B Fib NR Left Tibial Motor (Abd Myers Brev) Ankle 8.4 <6.0 1.1 >4.0 Knee Ankle 13.0 43.0 33 >40 Knee 21.4 5.9 EMG Side Muscle Nerve Root Ins Act Fibs Psw Amp Dur Poly Recrt Int Pat Comment Right ExtHallLong Dp Br Peron L5, S1 Nml Nml Nml Nml Nml 0 Reduced 25% neurogenic Right Gastroc Tibial S1-2 Nml Nml Nml Nml Nml 0 Nml Nml Right AntTibialis Dp Br Peron L4-5 Nml Nml Nml Nml Nml 0 Nml Nml Right VastusMed Femoral L2-4 Nml Nml Nml Nml Nml 0 Nml Nml Right BicepsFemL Sciatic L5-S2 Nml Nml Nml Nml Nml 0 Nml Nml Right Lumbo Parasp Up Rami L1-2 Nml Nml Nml Right Lumbo Parasp Mid Rami L3-4 Nml Nml Nml Right Lumbo Parasp Low Rami L5-S1 Nml Nml Nml Left ExtHallLong Dp Br Peron L5, S1 Nml Nml Nml Nml Nml 0 Reduced 25% neurogenic Left Gastroc Tibial S1-2 Nml Nml Nml Nml Nml 0 Nml Nml Left AntTibialis Dp Br Peron L4-5 Nml Nml Nml Nml Nml 0 Nml Nml Left VastusMed Femoral L2-4 Nml Nml Nml Nml Nml 0 Nml Nml Left BicepsFemL Sciatic L5-S2 Nml Nml Nml Nml Nml 0 Nml Nml Left Lumbo Parasp Up Rami L1-2 Nml Nml Nml Left Lumbo Parasp Mid Rami L3-4 Nml Nml Nml Left Lumbo Parasp Low Rami L5-S1 Nml Nml Nml Nerve Conduction Studies Anti Sensory Left/Right Comparison Site L Lat (ms) R Lat (ms) L-R Lat (ms) L Amp (V) R Amp (V) L-R Amp (%) Site1 Site2 L Raza (m/s) R Raza (m/s) L-R Raza (m/s) Sural Anti Sensory (Lat Mall) Calf Calf Lat Mall Motor Left/Right Comparison Site L Lat (ms) R Lat (ms) L-R Lat (ms) L Amp (mV) R Amp (mV) L-R Amp (%) Site1 Site2 L Raza (m/s) R Raza (m/s) L-R Raza (m/s) Peroneal Motor (Ext Dig Brev) Ankle 12.0 0.1 B Fib Ankle B Fib Tibial Motor (Abd Myers Brev) Ankle 8.4 1.1 Knee Ankle 33 Knee 21.4 5.9 ENRRIQUE MELO MD Nov 29, 2016 15:20
[2016-11-29] MEDS: fentaNYL PF VIAL 100 MCG/2 ML VIAL IV PRN ×2 (18:12→23:49)
[2016-11-29 19:13] LABS: HEP B SURFACE ABDY Non Reactive (.)
[2016-11-30] VITALS (15 sets, daily range): BP systolic 96–148; BP diastolic 62–87
[2016-11-30 05:23] LABS: BASO # 0.1 x10^3/uL (0.0-0.2); BASO % 0 % (0-3); EOS % 1 % (0-3); HEMATOCRIT 43.4 % (39.0-53.0); HEMOGLOBIN 14.5 g/dL (13.0-17.5); LYMPH # 2.5 x10^3/uL (1.0-4.8); LYMPH % 19 % (24-48); MEAN CORPUSCULAR HEMOGLOBIN 28 pg (25-35); MEAN CORPUSCULAR HGB CONC 33 g/dL (31-37); MEAN CORPUSCULAR VOLUME 85 fL (79-100); MONO % 12 % (0-9); NEUT % 68 % (31-73); PLATELET COUNT 243 x10^3/uL (140-400); RED BLOOD COUNT 5.13 x10^6/uL (4.30-5.70); RED CELL DISTRIBUTION WIDTH 14.8 % (11.5-14.5); WHITE BLOOD COUNT 13.3 x10^3/uL (4.0-11.0)
[2016-11-30 05:50] LABS: CALCIUM 7.9 mg/dL (8.5-10.1); CREATININE 0.9 mg/dL (0.7-1.3); GFR 89.3; POTASSIUM 3.2 mmol/L (3.5-5.1)
[2016-11-30] MEDS: LEVOTHYROXINE 50 MCG TABLET PO SCH (06:18)
[2016-11-30] MEDS ORDERED: DEXTROSE 50% 25 GM / 50ML DISP.SYRIN. IV PRN (06:45)
--- NOTE | 2016-11-30 07:20 | PDOC ---
Infectious Disease Note Subjective Subjective Doing well ROS ROS GEN: Denies fevers, chills, sweats HEENT: Denies blurred vision, sore throat CV: Denies chest pain RESP: Denies shortness of air, cough GI: Denies n/v/d NEURO: Denies confusion, dizziness MSK: getting stronger Vital Sign Vital Signs Vital Signs Date Time Temp Pulse Resp B/P (MAP) Pulse Ox O2 Delivery O2 Flow Rate FiO2 11/30/16 06:00 104 17 148/79 (102) 96 Nasal Cannula 2.0 11/30/16 04:00 98.6 98.6 Physical Exam PHYSICAL EXAM GENERAL: NAD, Alert HEENT: PERRL, OC/OP- clear NECK: Supple, no JVD, no LN LUNGS: Clear HEART: S1S2, no gallop, no murmur ABD: Soft, NT, no organomegaly, no rebound Workman EXT: No edema, no cyanosis PEDIATRIC NEUROLOGIST: Alert, oriented x 3, no focal neurologic deficit SKIN: No rash IV: ok Labs Lab Laboratory Tests Test 11/30/16 04:25 White Blood Count 13.3 x10^3/uL (4.0-11.0) Red Blood Count 5.13 x10^6/uL (4.30-5.70) Hemoglobin 14.5 g/dL (13.0-17.5) Hematocrit 43.4 % (39.0-53.0) Mean Corpuscular Volume 85 fL (79-100) Mean Corpuscular Hemoglobin 28 pg (25-35) Mean Corpuscular Hemoglobin Concent 33 g/dL (31-37) Red Cell Distribution Width 14.8 % (11.5-14.5) Platelet Count 243 x10^3/uL (140-400) Neutrophils (%) (Auto) 68 % (31-73) Lymphocytes (%) (Auto) 19 % (24-48) Monocytes (%) (Auto) 12 % (0-9) Eosinophils (%) (Auto) 1 % (0-3) Basophils (%) (Auto) 0 % (0-3) Neutrophils # (Auto) 9.0 x10^3uL (1.8-7.7) Lymphocytes # (Auto) 2.5 x10^3/uL (1.0-4.8) Monocytes # (Auto) 1.6 x10^3/uL (0.0-1.1) Eosinophils # (Auto) 0.1 x10^3/uL (0.0-0.7) Basophils # (Auto) 0.1 x10^3/uL (0.0-0.2) Sodium Level 142 mmol/L (136-145) Potassium Level 3.2 mmol/L (3.5-5.1) Chloride Level 109 mmol/L (98-107) Carbon Dioxide Level 23 mmol/L (21-32) Anion Gap 10 (6-14) Blood Urea Nitrogen 22 mg/dL (8-26) Creatinine 0.9 mg/dL (0.7-1.3) Estimated GFR (Cockcroft-Gault) 89.3 Glucose Level 101 mg/dL (70-99) Calcium Level 7.9 mg/dL (8.5-10.1) Objective Assessment 1. Extreme weakness, ? Atypical presentation of GBS is possible. The concern is that the patient did have flu vaccine 2 weeks ago. - s/p LP: Opening pressure 18 cm/H2O, CSF colorless, clear, WBC 0, glucose 70 , T. protein 115.5 - RPR nonreactive/HSV - neg. MRI head - neg - improving 2. Leukocytosis, probably reactive. - improving without abx 3. Diabetes. 4. Hypertension. 5. Obesity. 6. Resp failure - better Bipap Plan Plan of Care Cont off abx ID to sign off KARIE JONES MD Nov 30, 2016 07:20
[2016-11-30] MEDS: IPRATRPIUM/ALBUTEROL 0.5/2.5MG 3 ML NEBU. NEB SCH ×3 (08:09→15:10)
[2016-11-30] MEDS: ALLOPURINOL 100 MG TABLET. PO SCH (08:38)
[2016-11-30] MEDS: metFORMIN 850 MG TABLET PO SCH (08:38)
[2016-11-30] MEDS: FAMOTIDINE 20 MG TABLET. PO SCH (08:38)
[2016-11-30] MEDS: METOPROLOL SUCC 24HR ER 25 MG TAB.ER.24H. PO SCH (08:38)
[2016-11-30] MEDS: BENZONATATE 100 MG CAPSULE. PO SCH ×2 (08:38→13:27)
[2016-11-30] MEDS: hydroCHLOROthiazide 12.5 MG CAPSULE PO SCH (08:38)
[2016-11-30] MEDS: LOSARTAN POTASSIUM 50 MG TABLET. PO SCH (08:39)
--- NOTE | 2016-11-30 09:35 | PDOC ---
PROGRESS NOTES Subjective Subjective He feels better and c/o discomfort from indwelling Workman catheter. Objective Objective Vital Signs Date Time Temp Pulse Resp B/P (MAP) Pulse Ox O2 Delivery O2 Flow Rate FiO2 11/30/16 09:00 107 17 145/75 (98) 97 Room Air 11/30/16 08:00 98.2 98.2 11/30/16 06:00 2.0 Intake and Output 12/01/16 07:00 Intake Total 50 ml Output Total 200 ml Balance -150 ml Intake Oral 50 ml Output Urine Total 200 ml Physical Exam Physical Exam He is supine in bed and comfortable and increased right foot dorsiflexor muscle strength when compared to yesterday.He continues to require maximal help with bed mobility and transfers. Assessment Assessment Problems Medical Problems: (1) Bilateral finger numbness Status: Acute (2) Numbness and tingling of both feet Status: Acute (3) Weakness Status: Acute Plan Plan of Care To rehab unit at [facility] when medically stable. Comment Review of Relevant I have reviewed the following items jada (where applicable) has been applied. Labs Laboratory Tests Test 11/29/16 04:05 11/30/16 04:25 White Blood Count 16.8 x10^3/uL (4.0-11.0) 13.3 x10^3/uL (4.0-11.0) Red Blood Count 5.34 x10^6/uL (4.30-5.70) 5.13 x10^6/uL (4.30-5.70) Hemoglobin 15.0 g/dL (13.0-17.5) 14.5 g/dL (13.0-17.5) Hematocrit 45.2 % (39.0-53.0) 43.4 % (39.0-53.0) Mean Corpuscular Volume 85 fL (79-100) 85 fL (79-100) Mean Corpuscular Hemoglobin 28 pg (25-35) 28 pg (25-35) Mean Corpuscular Hemoglobin Concent 33 g/dL (31-37) 33 g/dL (31-37) Red Cell Distribution Width 14.8 % (11.5-14.5) 14.8 % (11.5-14.5) Platelet Count 278 x10^3/uL (140-400) 243 x10^3/uL (140-400) Neutrophils (%) (Auto) 69 % (31-73) 68 % (31-73) Lymphocytes (%) (Auto) 18 % (24-48) 19 % (24-48) Monocytes (%) (Auto) 11 % (0-9) 12 % (0-9) Eosinophils (%) (Auto) 1 % (0-3) 1 % (0-3) Basophils (%) (Auto) 1 % (0-3) 0 % (0-3) Neutrophils # (Auto) 11.6 x10^3uL (1.8-7.7) 9.0 x10^3uL (1.8-7.7) Lymphocytes # (Auto) 3.0 x10^3/uL (1.0-4.8) 2.5 x10^3/uL (1.0-4.8) Monocytes # (Auto) 1.9 x10^3/uL (0.0-1.1) 1.6 x10^3/uL (0.0-1.1) Eosinophils # (Auto) 0.2 x10^3/uL (0.0-0.7) 0.1 x10^3/uL (0.0-0.7) Basophils # (Auto) 0.1 x10^3/uL (0.0-0.2) 0.1 x10^3/uL (0.0-0.2) Prothrombin Time 15.5 SEC (11.7-14.0) Prothromb Time International Ratio 1.3 (0.8-1.1) Activated Partial Thromboplast Time 33 SEC (24-38) Fibrinogen 188 mg/dL (200-440) Sodium Level 141 mmol/L (136-145) 142 mmol/L (136-145) Potassium Level 3.5 mmol/L (3.5-5.1) 3.2 mmol/L (3.5-5.1) Chloride Level 107 mmol/L (98-107) 109 mmol/L (98-107) Carbon Dioxide Level 25 mmol/L (21-32) 23 mmol/L (21-32) Anion Gap 9 (6-14) 10 (6-14) Blood Urea Nitrogen 24 mg/dL (8-26) 22 mg/dL (8-26) Creatinine 1.0 mg/dL (0.7-1.3) 0.9 mg/dL (0.7-1.3) Estimated GFR (Cockcroft-Gault) 79.1 89.3 BUN/Creatinine Ratio 24 (6-20) Glucose Level 106 mg/dL (70-99) 101 mg/dL (70-99) Calcium Level 8.3 mg/dL (8.5-10.1) 7.9 mg/dL (8.5-10.1) Total Bilirubin 0.9 mg/dL (0.2-1.0) Aspartate Amino Transf (AST/SGOT) 10 U/L (15-37) Alanine Aminotransferase (ALT/SGPT) 17 U/L (16-63) Alkaline Phosphatase 20 U/L (46-116) Total Protein 4.9 g/dL (6.4-8.2) Albumin 3.6 g/dL (3.4-5.0) Albumin/Globulin Ratio 2.8 (1.0-1.7) Laboratory Tests Test 11/30/16 04:25 White Blood Count 13.3 x10^3/uL (4.0-11.0) Red Blood Count 5.13 x10^6/uL (4.30-5.70) Hemoglobin 14.5 g/dL (13.0-17.5) Hematocrit 43.4 % (39.0-53.0) Mean Corpuscular Volume 85 fL (79-100) Mean Corpuscular Hemoglobin 28 pg (25-35) Mean Corpuscular Hemoglobin Concent 33 g/dL (31-37) Red Cell Distribution Width 14.8 % (11.5-14.5) Platelet Count 243 x10^3/uL (140-400) Neutrophils (%) (Auto) 68 % (31-73) Lymphocytes (%) (Auto) 19 % (24-48) Monocytes (%) (Auto) 12 % (0-9) Eosinophils (%) (Auto) 1 % (0-3) Basophils (%) (Auto) 0 % (0-3) Neutrophils # (Auto) 9.0 x10^3uL (1.8-7.7) Lymphocytes # (Auto) 2.5 x10^3/uL (1.0-4.8) Monocytes # (Auto) 1.6 x10^3/uL (0.0-1.1) Eosinophils # (Auto) 0.1 x10^3/uL (0.0-0.7) Basophils # (Auto) 0.1 x10^3/uL (0.0-0.2) Sodium Level 142 mmol/L (136-145) Potassium Level 3.2 mmol/L (3.5-5.1) Chloride Level 109 mmol/L (98-107) Carbon Dioxide Level 23 mmol/L (21-32) Anion Gap 10 (6-14) Blood Urea Nitrogen 22 mg/dL (8-26) Creatinine 0.9 mg/dL (0.7-1.3) Estimated GFR (Cockcroft-Gault) 89.3 Glucose Level 101 mg/dL (70-99) Calcium Level 7.9 mg/dL (8.5-10.1) Microbiology 11/26/16 Anaerobic/Aerobic Culture - Final, Complete 11/26/16 Anaerobic Culture Result 1 (ANILA) - Final, Complete 11/26/16 Aerobic Culture - Final, Complete 11/26/16 Aerobic Culture Result 1 (ANILA) - Final, Complete 11/25/16 Urine Culture - Final, Complete 11/25/16 Urine Culture Result 1 (ANILA) - Final, Complete Medications Current Medications Lorazepam (Ativan) 2 mg 1X ONCE IV Last administered on 11/25/16 16:15; Start 11/25/16 at 16:15; Stop 11/25/16 at 16:16; Status DC Lorazepam (Ativan) 2 mg 1X ONCE IV Last administered on 11/25/16t 16:47; Start 11/25/16 at 16:45; Stop 11/25/16 at 16:46; Status DC Lidocaine HCl 20 ml STK-MED ONCE .ROUTE ; Start 11/25/16 at 19:13; Stop at 19:14; Status DC Ondansetron HCl (Zofran) 4 mg PRN Q8HRS PRN IV NAUSEA/VOMITING; Start at 20:45; Stop 11/26/16 at 20:44; Status DC Sodium Chloride 1,000 ml @ 150 mls/hr Q6H40M IV Last administered on t 11:34; Start 11/25/16 at 20:42; Stop 11/26/16 at 20:41; Status DC Potassium Chloride (Klor-Con) 40 meq 1X ONCE PO Last administered on 09:14; Start 11/26/16 at 07:45; Stop 11/26/16 at 07:46; Status DC Lidocaine/Sodium Bicarbonate (Buffered Lidocaine 1%) 20 ml 1X ONCE IJ Last administered on 11/26/16 14:14; Start 11/26/16 at 12:45; Stop 11/26/16 at 12 :46; Status DC Lidocaine/Sodium Bicarbonate (Buffered Lidocaine 1%) 3 ml 1X ONCE IJ Last administered on 11/26/16 16:15; Start 11/26/16 at 16:15; Stop 11/26/16 at 16 :16; Status DC Heparin Sodium/ Sodium Chloride 60 unit 1X ONCE IV Last administered on 16:15; Start 11/26/16 at 16:15; Stop 11/26/16 at 16:16; Status DC Heparin Sodium (Porcine) (Heparin Sodium) 2,500 unit 1X ONCE INT CAT Last administered on 11/26/16 16:15; Start 11/26/16 at 16:15; Stop 11/26/16 at 16 :16; Status DC Lidocaine/Sodium Bicarbonate (Buffered Lidocaine 1%) 20 ml STK-MED ONCE IJ ; Start 11/26/16 at 16:22; Stop 11/26/16 at 16:23; Status DC Heparin Sodium (Porcine) (Heparin Sodium) 10,000 unit STK-MED ONCE .ROUTE ; Start 11/26/16 at 16:22; Stop 11/26/16 at 16:23; Status DC Heparin Sodium/ Sodium Chloride 500 ml @ As Directed STK-MED ONCE .ROUTE ; Start 11/26/16 at 16:22; Stop 11/26/16 at 16:23; Status DC Labetalol HCl (Normodyne) 10 mg PRN Q2HR PRN IVP HYPERTENSION, SEE COMMENTS Last administered on 11/27/16 15:08; Start 11/26/16 at 17:30 Allopurinol (Zyloprim) 100 mg DAILY PO Last administered on 11/30/16 08:38; Start 11/27/16 at 09:00 Benzonatate (Tessalon Perle) 100 mg TID PO Last administered on 11/30/16 08: 38; Start 11/26/16 at 21:00 Levothyroxine Sodium (Synthroid) 50 mcg DAILY07 PO Last administered on 06:18; Start 11/27/16 at 07:00 Metformin HCl (Glucophage) 850 mg DAILYWBKFT PO Last administered on 08:38; Start 11/27/16 at 08:00 Metoprolol Succinate (Toprol Xl) 25 mg DAILY PO Last administered on 08:38; Start 11/27/16 at 09:00 Losartan Potassium (Cozaar) 100 mg DAILY PO Last administered on 11/30/16 08: 39; Start 11/27/16 at 09:00 Famotidine (Pepcid) 20 mg BID PO Last administered on 11/30/16 08:38; Start 11/26/16 at 21:00 Hydrochlorothiazide (Microzide) 12.5 mg DAILY PO Last administered on 08:38; Start 11/27/16 at 09:00 Albumin Human/ Albumin Human 4,600 ml @ 766.667 mls/hr 1X ONCE IV ; Start at 19:45; Stop 11/26/16 at 19:45; Status DC Sodium Chloride 2,200 ml @ 366.667 mls/hr Q6H IV Last administered on 22:30; Start 11/26/16 at 19:45; Stop 11/27/16 at 01:44; Status DC Albumin Human/ Albumin Human 4,600 ml @ 766.667 mls/hr 1X ONCE IV Last administered on 11/26/16 19:45; Start 11/26/16 at 19:45; Stop 11/27/16 at 01 :44; Status DC Heparin Sodium (Porcine) (Heparin Sodium) 5,000 unit 1X ONCE IV Last administered on 11/27/16 12:54; Start 11/26/16 at 19:45; Stop 11/26/16 at 19 :46; Status DC Morphine Sulfate 2 mg PRN Q2HR PRN IV MODERATE PAIN Last administered on 21:11; Start 11/26/16 at 20:45 Fentanyl Citrate (Fentanyl 2ml Vial) 50 mcg PRN Q2HR PRN IV SEVERE PAIN Last administered on 11/29/16 23:49; Start 11/26/16 at 20:45 Acetaminophen/ Hydrocodone Bitart (Lortab 5/325) 1 tab PRN Q4HRS PRN PO PAIN; Start 11/26/16 at 20:45 Acetaminophen/ Hydrocodone Bitart (Lortab 10/325) 1 tab PRN Q6HRS PRN PO SEVERE PAIN Last administered on 11/28/16 08:20; Start 11/26/16 at 20:45 Lorazepam (Ativan) 0.5 mg PRN Q8HRS PRN PO ANXIETY / AGITATION Last administered on 11/27/16 20:23; Start 11/26/16 at 21:15 Lorazepam (Ativan) 1 mg PRN Q4HRS PRN IV ANXIETY / AGITATION Last administered on 11/29/16 10:21; Start 11/26/16 at 21:15 Ondansetron HCl (Zofran) 4 mg PRN Q6HRS PRN IV NAUSEA/VOMITING 1ST CHOICE; Start 11/26/16 at 23:00 Prochlorperazine Edisylate (Compazine) 10 mg PRN Q6HRS PRN IV NAUSEA/VOMITING 2ND CHOICE; Start 11/26/16 at 23:00 Albuterol Sulfate (Ventolin Neb Soln) 2.5 mg 1X ONCE NEB Last administered on 11/26/16 23:43; Start 11/26/16 at 23:45; Stop 11/26/16 at 23:46; Status DC Albuterol/ Ipratropium (Duoneb) 3 ml RTQID NEB Last administered on 11/30/16 08:09; Start 11/27/16 at 08:00 Furosemide (Lasix) 20 mg 1X ONCE IVP Last administered on 11/27/16 00:24; Start 11/27/16 at 00:30; Stop 11/27/16 at 00:31; Status DC Albumin Human 4,000 ml @ 666.667 mls/hr 1X ONCE IV Last administered on 11/28 10:06; Start 11/27/16 at 11:00; Stop 11/27/16 at 16:59; Status DC Sodium Chloride 2,000 ml @ 333.333 mls/hr Q6H IV ; Start 11/27/16 at 11:00; Stop 11/28/16 at 07:02; Status DC Enoxaparin Sodium (Lovenox 60mg Syringe) 60 mg Q12HR SQ Last administered on 08:38; Start 11/27/16 at 11:00 Heparin Sodium (Porcine) (Heparin Sodium) 5,000 unit 1X ONCE IV Last administered on 11/27/16 15:07; Start 11/27/16 at 11:00; Stop 11/27/16 at 11 :01; Status DC Perflutren Protein Type A Microsphe (Optison) 0.66 mg 1X ONCE IV Last administered on 11/27/16 11:50; Start 11/27/16 at 11:30; Stop 11/27/16 at 11 :31; Status DC Calcium Gluconate 2000 mg/Sodium Chloride 120 ml @ 220 mls/hr 1X ONCE IV Last administered on 11/27/16 12:51; Start 11/27/16 at 13:00; Stop 11/27/16 at 13:32; Status DC Albumin Human 4,000 ml @ 125 mls/hr 1X ONCE IV Last administered on 09:29; Start 11/28/16 at 08:00; Stop 11/29/16 at 15:59; Status DC Sodium Chloride 2,000 ml @ 0 mls/hr Q0M IV ; Start 11/28/16 at 08:00 Heparin Sodium (Porcine) (Heparin Sodium) 5,000 unit 1X ONCE IV Last administered on 11/28/16 09:28; Start 11/28/16 at 08:00; Stop 11/28/16 at 08 :01; Status DC Heparin Sodium (Porcine) (Heparin Sodium) 5,000 unit 1X ONCE IV ; Start at 10:00; Stop 11/28/16 at 10:07; Status DC Gadobutrol (Gadavist) 7 mmol 1X ONCE IV Last administered on 11/28/16 15:05 ; Start 11/28/16 at 15:00; Stop 11/28/16 at 15:04; Status DC Gadobutrol (Gadavist) 7 mmol 1X ONCE IV Last administered on 11/28/16 15:06 ; Start 11/28/16 at 15:00; Stop 11/28/16 at 15:04; Status DC Albumin Human 3,400 ml @ 500 mls/hr 1X ONCE IV Last administered on 09:58; Start 11/29/16 at 08:00; Stop 11/29/16 at 14:47; Status DC Sodium Chloride 1,000 ml @ 100 mls/hr Q10H IV Last administered on 11/29/16 08:00; Start 11/29/16 at 08:00; Stop 11/30/16 at 03:59; Status DC Potassium Chloride 50 ml @ 50 mls/hr Q1H IV Last administered on 11/29/16 11: 30; Start 11/29/16 at 10:30; Stop 11/29/16 at 12:29; Status DC Heparin Sodium (Porcine) (Heparin Sodium) 10,000 unit STK-MED ONCE .ROUTE ; Start 11/29/16 at 10:16; Stop 11/29/16 at 10:17; Status DC Dextrose (Dextrose 50%-Water Syringe) 12.5 gm PRN Q15MIN PRN IV SEE COMMENTS; Start 11/30/16 at 06:45; Status Cancel Active Scripts Active Reported Tessalon Perle (Benzonatate) 100 Mg Capsule 1 Cap PO TID Metformin Hcl 850 Mg Tablet 750 Mg PO DAILY Metoprolol Succinate ( Xl ) (Metoprolol Succinate) 25 Mg Tab.er.24h 1 Tab PO DAILY Losartan-Hctz 100-12.5 Mg Tab (Losartan/Hydrochlorothiazide) 1 Each Tablet 1 Tab PO DAILY Allopurinol 100 Mg Tablet 1 Tab PO DAILY Synthroid (Levothyroxine Sodium) 50 Mcg Tablet 1 Tab PO DAILY Zantac (Ranitidine Hcl) 150 Mg Tablet 1 Tab PO BID Vitals/I & O Vital Sign - Last 24 Hours 11/29/16 11/29/16 11/29/16 11/29/16 10:00 11:00 11:40 12:00 Temp 98.8 98.8 Pulse 93 106 94 Resp 17 20 20 B/P (MAP) 122/61 (81) 107/73 (84) 106/62 (77) Pulse Ox 97 99 100 99 O2 Delivery Room Air Room Air BiPAP/CPAP Room Air 11/29/16 11/29/16 11/29/16 11/29/16 12:00 13:00 14:00 15:00 Pulse 90 119 96 Resp 16 21 22 B/P (MAP) 115/61 (79) 121/80 (94) 107/65 (79) Pulse Ox 96 97 98 O2 Delivery Room Air Room Air Room Air Room Air 11/29/16 11/29/16 11/29/16 11/29/16 15:39 16:00 16:00 17:00 Temp 98.6 98.6 Pulse 104 110 Resp 20 29 B/P (MAP) 113/61 (78) 119/67 (84) Pulse Ox 98 94 O2 Delivery Room Air Room Air Room Air Room Air 11/29/16 11/29/16 11/29/16 11/29/16 18:00 18:12 18:46 19:00 Pulse 127 105 Resp 24 27 17 B/P (MAP) 122/73 (89) 119/74 (89) Pulse Ox 94 92 93 O2 Delivery Room Air Room Air O2 Flow Rate 2.0 11/29/16 11/29/16 11/29/16 11/29/16 19:42 20:00 20:00 21:00 Temp 98.4 98.4 Pulse 116 112 Resp 17 20 B/P (MAP) 111/69 (83) 111/69 (83) Pulse Ox 94 94 97 O2 Delivery Room Air Room Air Room Air Room Air 11/29/16 11/29/16 11/29/16 11/29/16 21:45 22:00 23:00 23:30 Pulse 120 120 Resp 15 15 B/P (MAP) 117/69 (85) 120/68 (85) Pulse Ox 97 97 97 O2 Delivery BiPAP/CPAP BiPAP/CPAP BiPAP/CPAP BiPAP/CPAP 11/29/16 11/29/16 11/30/16 11/30/16 23:49 23:59 00:00 00:19 Temp 98.6 98.6 Pulse 118 Resp 17 18 15 B/P (MAP) 99/67 (78) Pulse Ox 95 97 95 O2 Delivery Room Air Room Air Room Air Room Air 11/30/16 11/30/16 11/30/16 11/30/16 01:00 02:00 03:00 04:00 Pulse 110 114 111 Resp 16 19 15 B/P (MAP) 127/62 (83) 127/62 (83) 119/76 (90) Pulse Ox 92 95 98 O2 Delivery Room Air Nasal Cannula Nasal Cannula Room Air O2 Flow Rate 2.0 2.0 11/30/16 11/30/16 11/30/16 11/30/16 04:00 05:00 06:00 07:00 Temp 98.6 98.6 Pulse 100 103 104 99 Resp 13 15 17 14 B/P (MAP) 122/76 (91) 140/87 (104) 148/79 (102) 148/79 (102) Pulse Ox 97 96 96 94 O2 Delivery Nasal Cannula Nasal Cannula Nasal Cannula Room Air O2 Flow Rate 2.0 2.0 2.0 11/30/16 11/30/16 11/30/16 11/30/16 08:00 08:00 08:09 08:38 Temp 98.2 98.2 Pulse 107 99 Resp 14 B/P (MAP) 117/86 (96) 148/79 Pulse Ox 99 96 O2 Delivery Room Air Room Air Room Air 11/30/16 11/30/16 08:39 09:00 Pulse 99 107 Resp 17 B/P (MAP) 148/79 145/75 (98) Pulse Ox 97 O2 Delivery Room Air Intake and Output 11/30/16 11/30/16 12/01/16 15:00 23:00 07:00 Intake Total 50 ml Output Total 200 ml Balance -150 ml PORTER SORENSEN MD Nov 30, 2016 09:35
--- NOTE | 2016-11-30 09:48 | PDOC ---
PROGRESS NOTES Assessment Problems Medical Problems: (1) Bilateral finger numbness Status: Acute (2) Numbness and tingling of both feet Status: Acute (3) Weakness Status: Acute GBS Leukocytosis. DM HTN Gout Degenerative C-spine disease. Obesity. No evidence of acute CVA or brain tumor or pontine lesion this time. Plan Plasma exchange, Day 06/18 today PM&R consult appreciated Transfer to inpatient rehab. Follow-up with Dr. Donahue in one month. Subjective No pain, no complaints Objective Vital Signs Date Time Temp Pulse Resp B/P (MAP) Pulse Ox O2 Delivery O2 Flow Rate FiO2 11/30/16 09:00 107 17 145/75 (98) 97 Room Air 11/30/16 08:00 98.2 98.2 11/30/16 06:00 2.0 Intake and Output 12/01/16 07:00 Intake Total 50 ml Output Total 200 ml Balance -150 ml Intake Oral 50 ml Output Urine Total 200 ml PHYSICAL EXAM Sleepy, awakens quickly Oriented to time, place and person. PERRL. EOMI. CN: Slight right peripheral facial weakness also noted yesterday. Muscle tone: normal. Muscle strength: 4/5 DTR: 0-1+ Plantar reflex: flexor Gait: not examined in bed. Sensory exam: distal loss, arms and legs No cerebellar signs elicited. Review of Relevant I have reviewed the following items jada (where applicable) has been applied. Labs Laboratory Tests Test 11/29/16 04:05 11/30/16 04:25 White Blood Count 16.8 x10^3/uL (4.0-11.0) 13.3 x10^3/uL (4.0-11.0) Red Blood Count 5.34 x10^6/uL (4.30-5.70) 5.13 x10^6/uL (4.30-5.70) Hemoglobin 15.0 g/dL (13.0-17.5) 14.5 g/dL (13.0-17.5) Hematocrit 45.2 % (39.0-53.0) 43.4 % (39.0-53.0) Mean Corpuscular Volume 85 fL (79-100) 85 fL (79-100) Mean Corpuscular Hemoglobin 28 pg (25-35) 28 pg (25-35) Mean Corpuscular Hemoglobin Concent 33 g/dL (31-37) 33 g/dL (31-37) Red Cell Distribution Width 14.8 % (11.5-14.5) 14.8 % (11.5-14.5) Platelet Count 278 x10^3/uL (140-400) 243 x10^3/uL (140-400) Neutrophils (%) (Auto) 69 % (31-73) 68 % (31-73) Lymphocytes (%) (Auto) 18 % (24-48) 19 % (24-48) Monocytes (%) (Auto) 11 % (0-9) 12 % (0-9) Eosinophils (%) (Auto) 1 % (0-3) 1 % (0-3) Basophils (%) (Auto) 1 % (0-3) 0 % (0-3) Neutrophils # (Auto) 11.6 x10^3uL (1.8-7.7) 9.0 x10^3uL (1.8-7.7) Lymphocytes # (Auto) 3.0 x10^3/uL (1.0-4.8) 2.5 x10^3/uL (1.0-4.8) Monocytes # (Auto) 1.9 x10^3/uL (0.0-1.1) 1.6 x10^3/uL (0.0-1.1) Eosinophils # (Auto) 0.2 x10^3/uL (0.0-0.7) 0.1 x10^3/uL (0.0-0.7) Basophils # (Auto) 0.1 x10^3/uL (0.0-0.2) 0.1 x10^3/uL (0.0-0.2) Prothrombin Time 15.5 SEC (11.7-14.0) Prothromb Time International Ratio 1.3 (0.8-1.1) Activated Partial Thromboplast Time 33 SEC (24-38) Fibrinogen 188 mg/dL (200-440) Sodium Level 141 mmol/L (136-145) 142 mmol/L (136-145) Potassium Level 3.5 mmol/L (3.5-5.1) 3.2 mmol/L (3.5-5.1) Chloride Level 107 mmol/L (98-107) 109 mmol/L (98-107) Carbon Dioxide Level 25 mmol/L (21-32) 23 mmol/L (21-32) Anion Gap 9 (6-14) 10 (6-14) Blood Urea Nitrogen 24 mg/dL (8-26) 22 mg/dL (8-26) Creatinine 1.0 mg/dL (0.7-1.3) 0.9 mg/dL (0.7-1.3) Estimated GFR (Cockcroft-Gault) 79.1 89.3 BUN/Creatinine Ratio 24 (6-20) Glucose Level 106 mg/dL (70-99) 101 mg/dL (70-99) Calcium Level 8.3 mg/dL (8.5-10.1) 7.9 mg/dL (8.5-10.1) Total Bilirubin 0.9 mg/dL (0.2-1.0) Aspartate Amino Transf (AST/SGOT) 10 U/L (15-37) Alanine Aminotransferase (ALT/SGPT) 17 U/L (16-63) Alkaline Phosphatase 20 U/L (46-116) Total Protein 4.9 g/dL (6.4-8.2) Albumin 3.6 g/dL (3.4-5.0) Albumin/Globulin Ratio 2.8 (1.0-1.7) Laboratory Tests Test 11/30/16 04:25 White Blood Count 13.3 x10^3/uL (4.0-11.0) Red Blood Count 5.13 x10^6/uL (4.30-5.70) Hemoglobin 14.5 g/dL (13.0-17.5) Hematocrit 43.4 % (39.0-53.0) Mean Corpuscular Volume 85 fL (79-100) Mean Corpuscular Hemoglobin 28 pg (25-35) Mean Corpuscular Hemoglobin Concent 33 g/dL (31-37) Red Cell Distribution Width 14.8 % (11.5-14.5) Platelet Count 243 x10^3/uL (140-400) Neutrophils (%) (Auto) 68 % (31-73) Lymphocytes (%) (Auto) 19 % (24-48) Monocytes (%) (Auto) 12 % (0-9) Eosinophils (%) (Auto) 1 % (0-3) Basophils (%) (Auto) 0 % (0-3) Neutrophils # (Auto) 9.0 x10^3uL (1.8-7.7) Lymphocytes # (Auto) 2.5 x10^3/uL (1.0-4.8) Monocytes # (Auto) 1.6 x10^3/uL (0.0-1.1) Eosinophils # (Auto) 0.1 x10^3/uL (0.0-0.7) Basophils # (Auto) 0.1 x10^3/uL (0.0-0.2) Sodium Level 142 mmol/L (136-145) Potassium Level 3.2 mmol/L (3.5-5.1) Chloride Level 109 mmol/L (98-107) Carbon Dioxide Level 23 mmol/L (21-32) Anion Gap 10 (6-14) Blood Urea Nitrogen 22 mg/dL (8-26) Creatinine 0.9 mg/dL (0.7-1.3) Estimated GFR (Cockcroft-Gault) 89.3 Glucose Level 101 mg/dL (70-99) Calcium Level 7.9 mg/dL (8.5-10.1) Microbiology 11/26/16 Anaerobic/Aerobic Culture - Final, Complete 11/26/16 Anaerobic Culture Result 1 (ANILA) - Final, Complete 11/26/16 Aerobic Culture - Final, Complete 11/26/16 Aerobic Culture Result 1 (ANILA) - Final, Complete 11/25/16 Urine Culture - Final, Complete 11/25/16 Urine Culture Result 1 (ANILA) - Final, Complete Medications Current Medications Lorazepam (Ativan) 2 mg 1X ONCE IV Last administered on 11/25/16t 16:15; Start 11/25/16 at 16:15; Stop 11/25/16 at 16:16; Status DC Lorazepam (Ativan) 2 mg 1X ONCE IV Last administered on 11/25/16t 16:47; Start 11/25/16 at 16:45; Stop 11/25/16 at 16:46; Status DC Lidocaine HCl 20 ml STK-MED ONCE .ROUTE ; Start 11/25/16 at 19:13; Stop at 19:14; Status DC Ondansetron HCl (Zofran) 4 mg PRN Q8HRS PRN IV NAUSEA/VOMITING; Start at 20:45; Stop 11/26/16 at 20:44; Status DC Sodium Chloride 1,000 ml @ 150 mls/hr Q6H40M IV Last administered on 11:34; Start 11/25/16 at 20:42; Stop 11/26/16 at 20:41; Status DC Potassium Chloride (Klor-Con) 40 meq 1X ONCE PO Last administered on 09:14; Start 11/26/16 at 07:45; Stop 11/26/16 at 07:46; Status DC Lidocaine/Sodium Bicarbonate (Buffered Lidocaine 1%) 20 ml 1X ONCE IJ Last administered on 11/26/16 14:14; Start 11/26/16 at 12:45; Stop 11/26/16 at 12 :46; Status DC Lidocaine/Sodium Bicarbonate (Buffered Lidocaine 1%) 3 ml 1X ONCE IJ Last administered on 11/26/16 16:15; Start 11/26/16 at 16:15; Stop 11/26/16 at 16 :16; Status DC Heparin Sodium/ Sodium Chloride 60 unit 1X ONCE IV Last administered on 16:15; Start 11/26/16 at 16:15; Stop 11/26/16 at 16:16; Status DC Heparin Sodium (Porcine) (Heparin Sodium) 2,500 unit 1X ONCE INT CAT Last administered on 11/26/16 16:15; Start 11/26/16 at 16:15; Stop 11/26/16 at 16 :16; Status DC Lidocaine/Sodium Bicarbonate (Buffered Lidocaine 1%) 20 ml STK-MED ONCE IJ ; Start 11/26/16 at 16:22; Stop 11/26/16 at 16:23; Status DC Heparin Sodium (Porcine) (Heparin Sodium) 10,000 unit STK-MED ONCE .ROUTE ; Start 11/26/16 at 16:22; Stop 11/26/16 at 16:23; Status DC Heparin Sodium/ Sodium Chloride 500 ml @ As Directed STK-MED ONCE .ROUTE ; Start 11/26/16 at 16:22; Stop 11/26/16 at 16:23; Status DC Labetalol HCl (Normodyne) 10 mg PRN Q2HR PRN IVP HYPERTENSION, SEE COMMENTS Last administered on 11/27/16 15:08; Start 11/26/16 at 17:30 Allopurinol (Zyloprim) 100 mg DAILY PO Last administered on 11/30/16 08:38; Start 11/27/16 at 09:00 Benzonatate (Tessalon Perle) 100 mg TID PO Last administered on 11/30/16 08: 38; Start 11/26/16 at 21:00 Levothyroxine Sodium (Synthroid) 50 mcg DAILY07 PO Last administered on 06:18; Start 11/27/16 at 07:00 Metformin HCl (Glucophage) 850 mg DAILYWBKFT PO Last administered on 08:38; Start 11/27/16 at 08:00 Metoprolol Succinate (Toprol Xl) 25 mg DAILY PO Last administered on 08:38; Start 11/27/16 at 09:00 Losartan Potassium (Cozaar) 100 mg DAILY PO Last administered on 11/30/16 08: 39; Start 11/27/16 at 09:00 Famotidine (Pepcid) 20 mg BID PO Last administered on 11/30/16 08:38; Start 11/26/16 at 21:00 Hydrochlorothiazide (Microzide) 12.5 mg DAILY PO Last administered on 08:38; Start 11/27/16 at 09:00 Albumin Human/ Albumin Human 4,600 ml @ 766.667 mls/hr 1X ONCE IV ; Start at 19:45; Stop 11/26/16 at 19:45; Status DC Sodium Chloride 2,200 ml @ 366.667 mls/hr Q6H IV Last administered on 22:30; Start 11/26/16 at 19:45; Stop 11/27/16 at 01:44; Status DC Albumin Human/ Albumin Human 4,600 ml @ 766.667 mls/hr 1X ONCE IV Last administered on 11/26/16 19:45; Start 11/26/16 at 19:45; Stop 11/27/16 at 01 :44; Status DC Heparin Sodium (Porcine) (Heparin Sodium) 5,000 unit 1X ONCE IV Last administered on 11/27/16 12:54; Start 11/26/16 at 19:45; Stop 11/26/16 at 19 :46; Status DC Morphine Sulfate 2 mg PRN Q2HR PRN IV MODERATE PAIN Last administered on 21:11; Start 11/26/16 at 20:45 Fentanyl Citrate (Fentanyl 2ml Vial) 50 mcg PRN Q2HR PRN IV SEVERE PAIN Last administered on 11/29/16 23:49; Start 11/26/16 at 20:45 Acetaminophen/ Hydrocodone Bitart (Lortab 5/325) 1 tab PRN Q4HRS PRN PO PAIN; Start 11/26/16 at 20:45 Acetaminophen/ Hydrocodone Bitart (Lortab 10/325) 1 tab PRN Q6HRS PRN PO SEVERE PAIN Last administered on 11/28/16 08:20; Start 11/26/16 at 20:45 Lorazepam (Ativan) 0.5 mg PRN Q8HRS PRN PO ANXIETY / AGITATION Last administered on 11/27/16 20:23; Start 11/26/16 at 21:15 Lorazepam (Ativan) 1 mg PRN Q4HRS PRN IV ANXIETY / AGITATION Last administered on 11/29/16 10:21; Start 11/26/16 at 21:15 Ondansetron HCl (Zofran) 4 mg PRN Q6HRS PRN IV NAUSEA/VOMITING 1ST CHOICE; Start 11/26/16 at 23:00 Prochlorperazine Edisylate (Compazine) 10 mg PRN Q6HRS PRN IV NAUSEA/VOMITING 2ND CHOICE; Start 11/26/16 at 23:00 Albuterol Sulfate (Ventolin Neb Soln) 2.5 mg 1X ONCE NEB Last administered on 11/26/16 23:43; Start 11/26/16 at 23:45; Stop 11/26/16 at 23:46; Status DC Albuterol/ Ipratropium (Duoneb) 3 ml RTQID NEB Last administered on 11/30/16 08:09; Start 11/27/16 at 08:00 Furosemide (Lasix) 20 mg 1X ONCE IVP Last administered on 11/27/16 00:24; Start 11/27/16 at 00:30; Stop 11/27/16 at 00:31; Status DC Albumin Human 4,000 ml @ 666.667 mls/hr 1X ONCE IV Last administered on 11/28 10:06; Start 11/27/16 at 11:00; Stop 11/27/16 at 16:59; Status DC Sodium Chloride 2,000 ml @ 333.333 mls/hr Q6H IV ; Start 11/27/16 at 11:00; Stop 11/28/16 at 07:02; Status DC Enoxaparin Sodium (Lovenox 60mg Syringe) 60 mg Q12HR SQ Last administered on 08:38; Start 11/27/16 at 11:00 Heparin Sodium (Porcine) (Heparin Sodium) 5,000 unit 1X ONCE IV Last administered on 11/27/16 15:07; Start 11/27/16 at 11:00; Stop 11/27/16 at 11 :01; Status DC Perflutren Protein Type A Microsphe (Optison) 0.66 mg 1X ONCE IV Last administered on 11/27/16 11:50; Start 11/27/16 at 11:30; Stop 11/27/16 at 11 :31; Status DC Calcium Gluconate 2000 mg/Sodium Chloride 120 ml @ 220 mls/hr 1X ONCE IV Last administered on 11/27/16 12:51; Start 11/27/16 at 13:00; Stop 11/27/16 at 13:32; Status DC Albumin Human 4,000 ml @ 125 mls/hr 1X ONCE IV Last administered on 09:29; Start 11/28/16 at 08:00; Stop 11/29/16 at 15:59; Status DC Sodium Chloride 2,000 ml @ 0 mls/hr Q0M IV ; Start 11/28/16 at 08:00 Heparin Sodium (Porcine) (Heparin Sodium) 5,000 unit 1X ONCE IV Last administered on 11/28/16 09:28; Start 11/28/16 at 08:00; Stop 11/28/16 at 08 :01; Status DC Heparin Sodium (Porcine) (Heparin Sodium) 5,000 unit 1X ONCE IV ; Start at 10:00; Stop 11/28/16 at 10:07; Status DC Gadobutrol (Gadavist) 7 mmol 1X ONCE IV Last administered on 10/15/17at 15:05 ; Start 11/28/16 at 15:00; Stop 11/28/16 at 15:04; Status DC Gadobutrol (Gadavist) 7 mmol 1X ONCE IV Last administered on 11/28/16 15:06 ; Start 11/28/16 at 15:00; Stop 11/28/16 at 15:04; Status DC Albumin Human 3,400 ml @ 500 mls/hr 1X ONCE IV Last administered on 09:58; Start 11/29/16 at 08:00; Stop 11/29/16 at 14:47; Status DC Sodium Chloride 1,000 ml @ 100 mls/hr Q10H IV Last administered on 11/29/16 08:00; Start 11/29/16 at 08:00; Stop 11/30/16 at 03:59; Status DC Potassium Chloride 50 ml @ 50 mls/hr Q1H IV Last administered on 11/29/16 11: 30; Start 11/29/16 at 10:30; Stop 11/29/16 at 12:29; Status DC Heparin Sodium (Porcine) (Heparin Sodium) 10,000 unit Prepmatic-MED ONCE .ROUTE ; Start 11/29/16 at 10:16; Stop 11/29/16 at 10:17; Status DC Dextrose (Dextrose 50%-Water Syringe) 12.5 gm PRN Q15MIN PRN IV SEE COMMENTS; Start 11/30/16 at 06:45; Status Cancel Active Scripts Active Reported Tessalon Perle (Benzonatate) 100 Mg Capsule 1 Cap PO TID Metformin Hcl 850 Mg Tablet 750 Mg PO DAILY Metoprolol Succinate ( Xl ) (Metoprolol Succinate) 25 Mg Tab.er.24h 1 Tab PO DAILY Losartan-Hctz 100-12.5 Mg Tab (Losartan/Hydrochlorothiazide) 1 Each Tablet 1 Tab PO DAILY Allopurinol 100 Mg Tablet 1 Tab PO DAILY Synthroid (Levothyroxine Sodium) 50 Mcg Tablet 1 Tab PO DAILY Zantac (Ranitidine Hcl) 150 Mg Tablet 1 Tab PO BID Vitals/I & O Vital Sign - Last 24 Hours 11/29/16 11/29/16 11/29/16 11/29/16 10:00 11:00 11:40 12:00 Temp 98.8 98.8 Pulse 93 106 94 Resp 17 20 20 B/P (MAP) 122/61 (81) 107/73 (84) 106/62 (77) Pulse Ox 97 99 100 99 O2 Delivery Room Air Room Air BiPAP/CPAP Room Air 11/29/16 11/29/16 11/29/16 11/29/16 12:00 13:00 14:00 15:00 Pulse 90 119 96 Resp 16 21 22 B/P (MAP) 115/61 (79) 121/80 (94) 107/65 (79) Pulse Ox 96 97 98 O2 Delivery Room Air Room Air Room Air Room Air 11/29/16 11/29/16 11/29/16 11/29/16 15:39 16:00 16:00 17:00 Temp 98.6 98.6 Pulse 104 110 Resp 20 29 B/P (MAP) 113/61 (78) 119/67 (84) Pulse Ox 98 94 O2 Delivery Room Air Room Air Room Air Room Air 11/29/16 11/29/16 11/29/16 11/29/16 18:00 18:12 18:46 19:00 Pulse 127 105 Resp 24 27 17 B/P (MAP) 122/73 (89) 119/74 (89) Pulse Ox 94 92 93 O2 Delivery Room Air Room Air O2 Flow Rate 2.0 11/29/16 11/29/16 11/29/16 11/29/16 19:42 20:00 20:00 21:00 Temp 98.4 98.4 Pulse 116 112 Resp 17 20 B/P (MAP) 111/69 (83) 111/69 (83) Pulse Ox 94 94 97 O2 Delivery Room Air Room Air Room Air Room Air 11/29/16 11/29/16 11/29/16 11/29/16 21:45 22:00 23:00 23:30 Pulse 120 120 Resp 15 15 B/P (MAP) 117/69 (85) 120/68 (85) Pulse Ox 97 97 97 O2 Delivery BiPAP/CPAP BiPAP/CPAP BiPAP/CPAP BiPAP/CPAP 11/29/16 11/29/16 11/30/16 11/30/16 23:49 23:59 00:00 00:19 Temp 98.6 98.6 Pulse 118 Resp 17 18 15 B/P (MAP) 99/67 (78) Pulse Ox 95 97 95 O2 Delivery Room Air Room Air Room Air Room Air 11/30/16 11/30/16 11/30/16 11/30/16 01:00 02:00 03:00 04:00 Pulse 110 114 111 Resp 16 19 15 B/P (MAP) 127/62 (83) 127/62 (83) 119/76 (90) Pulse Ox 92 95 98 O2 Delivery Room Air Nasal Cannula Nasal Cannula Room Air O2 Flow Rate 2.0 2.0 11/30/16 11/30/16 11/30/16 11/30/16 04:00 05:00 06:00 07:00 Temp 98.6 98.6 Pulse 100 103 104 99 Resp 13 15 17 14 B/P (MAP) 122/76 (91) 140/87 (104) 148/79 (102) 148/79 (102) Pulse Ox 97 96 96 94 O2 Delivery Nasal Cannula Nasal Cannula Nasal Cannula Room Air O2 Flow Rate 2.0 2.0 2.0 11/30/16 11/30/16 11/30/16 11/30/16 08:00 08:00 08:09 08:38 Temp 98.2 98.2 Pulse 107 99 Resp 14 B/P (MAP) 117/86 (96) 148/79 Pulse Ox 99 96 O2 Delivery Room Air Room Air Room Air 11/30/16 11/30/16 08:39 09:00 Pulse 99 107 Resp 17 B/P (MAP) 148/79 145/75 (98) Pulse Ox 97 O2 Delivery Room Air Intake and Output 11/30/16 11/30/16 12/01/16 15:00 23:00 07:00 Intake Total 50 ml Output Total 200 ml Balance -150 ml Images EMG (see full report under "provider note" Impression: 1. 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 Differential diagnosis includes acute or chronic inflammatory neuropathies (e.g. , Guillain [place]), dysproteinemias, thyorid disease, various infections, various medications/toxins, connective-tissue disease, various hereditary causes. 2. There is no sign of lumbosacral radiculopathy on either side. 3. There is no sign of lumbosacral plexopathy on either side. 4. There is no evidence of myopathy affecting the studied extremities. ENRRIQUE MELO MD Nov 30, 2016 09:48
[2016-11-30] MEDS ORDERED: NORMAL SALINE IV SCH (10:00)
[2016-11-30] MEDS ORDERED: ALBUMIN HUMAN 5% 3,000 ML IV ONE (10:00)
[2016-11-30 10:09] LABS: ALBUMIN 3.3 g/dL (3.4-5.0); MAGNESIUM 2.2 mg/dL (1.8-2.4)
[2016-11-30] MEDS: POTASSIUM CHLORIDE 20MEQ 50 ML IV SCH ×2 (10:21→10:22)
[2016-11-30] MEDS: fentaNYL PF VIAL 100 MCG/2 ML VIAL IV PRN (10:21)
--- NOTE | 2016-11-30 10:42 | PDOC ---
Dialysis Progress Note Dialysis Note Dialysis Note Seen on Plasma Exchange, tolerating treatment Well so far Vitals: 124/75 100 RR: 18 afeb General Appearance: Awake: Alert Oriented x 2-3 Neck: No JVD or JVP Chest: CTA Kishan Heart: S1 S2 Abdomen - Soft NTND Extremities - No Edema TPE # 5 today ongoing - 6L exchange: 3000 Albumin, and 3L NS as previously ordered Low K noted - IV KCL as rodered Vitals Vital Signs Vital Signs Date Time Temp Pulse Resp B/P (MAP) Pulse Ox O2 Delivery O2 Flow Rate FiO2 11/30/16 10:21 33 98 Room Air 11/30/16 10:00 99 133/82 (99) 11/30/16 08:00 98.2 98.2 11/30/16 06:00 2.0 Labs Last Labs Laboratory Tests Test 11/29/16 04:05 11/30/16 04:25 11/30/16 09:30 White Blood Count 16.8 x10^3/uL (4.0-11.0) 13.3 x10^3/uL (4.0-11.0) Red Blood Count 5.34 x10^6/uL (4.30-5.70) 5.13 x10^6/uL (4.30-5.70) Hemoglobin 15.0 g/dL (13.0-17.5) 14.5 g/dL (13.0-17.5) Hematocrit 45.2 % (39.0-53.0) 43.4 % (39.0-53.0) Mean Corpuscular Volume 85 fL (79-100) 85 fL (79-100) Mean Corpuscular Hemoglobin 28 pg (25-35) 28 pg (25-35) Mean Corpuscular Hemoglobin Concent 33 g/dL (31-37) 33 g/dL (31-37) Red Cell Distribution Width 14.8 % (11.5-14.5) 14.8 % (11.5-14.5) Platelet Count 278 x10^3/uL (140-400) 243 x10^3/uL (140-400) Neutrophils (%) (Auto) 69 % (31-73) 68 % (31-73) Lymphocytes (%) (Auto) 18 % (24-48) 19 % (24-48) Monocytes (%) (Auto) 11 % (0-9) 12 % (0-9) Eosinophils (%) (Auto) 1 % (0-3) 1 % (0-3) Basophils (%) (Auto) 1 % (0-3) 0 % (0-3) Neutrophils # (Auto) 11.6 x10^3uL (1.8-7.7) 9.0 x10^3uL (1.8-7.7) Lymphocytes # (Auto) 3.0 x10^3/uL (1.0-4.8) 2.5 x10^3/uL (1.0-4.8) Monocytes # (Auto) 1.9 x10^3/uL (0.0-1.1) 1.6 x10^3/uL (0.0-1.1) Eosinophils # (Auto) 0.2 x10^3/uL (0.0-0.7) 0.1 x10^3/uL (0.0-0.7) Basophils # (Auto) 0.1 x10^3/uL (0.0-0.2) 0.1 x10^3/uL (0.0-0.2) Prothrombin Time 15.5 SEC (11.7-14.0) Prothromb Time International Ratio 1.3 (0.8-1.1) Activated Partial Thromboplast Time 33 SEC (24-38) Fibrinogen 188 mg/dL (200-440) 254 mg/dL (200-440) Sodium Level 141 mmol/L (136-145) 142 mmol/L (136-145) Potassium Level 3.5 mmol/L (3.5-5.1) 3.2 mmol/L (3.5-5.1) Chloride Level 107 mmol/L (98-107) 109 mmol/L (98-107) Carbon Dioxide Level 25 mmol/L (21-32) 23 mmol/L (21-32) Anion Gap 9 (6-14) 10 (6-14) Blood Urea Nitrogen 24 mg/dL (8-26) 22 mg/dL (8-26) Creatinine 1.0 mg/dL (0.7-1.3) 0.9 mg/dL (0.7-1.3) Estimated GFR (Cockcroft-Gault) 79.1 89.3 BUN/Creatinine Ratio 24 (6-20) Glucose Level 106 mg/dL (70-99) 101 mg/dL (70-99) Calcium Level 8.3 mg/dL (8.5-10.1) 7.9 mg/dL (8.5-10.1) Total Bilirubin 0.9 mg/dL (0.2-1.0) Aspartate Amino Transf (AST/SGOT) 10 U/L (15-37) Alanine Aminotransferase (ALT/SGPT) 17 U/L (16-63) Alkaline Phosphatase 20 U/L (46-116) Total Protein 4.9 g/dL (6.4-8.2) Albumin 3.6 g/dL (3.4-5.0) 3.3 g/dL (3.4-5.0) Albumin/Globulin Ratio 2.8 (1.0-1.7) Magnesium Level 2.2 mg/dL (1.8-2.4) Laboratory Tests Test 11/30/16 04:25 11/30/16 09:30 White Blood Count 13.3 x10^3/uL (4.0-11.0) Red Blood Count 5.13 x10^6/uL (4.30-5.70) Hemoglobin 14.5 g/dL (13.0-17.5) Hematocrit 43.4 % (39.0-53.0) Mean Corpuscular Volume 85 fL (79-100) Mean Corpuscular Hemoglobin 28 pg (25-35) Mean Corpuscular Hemoglobin Concent 33 g/dL (31-37) Red Cell Distribution Width 14.8 % (11.5-14.5) Platelet Count 243 x10^3/uL (140-400) Neutrophils (%) (Auto) 68 % (31-73) Lymphocytes (%) (Auto) 19 % (24-48) Monocytes (%) (Auto) 12 % (0-9) Eosinophils (%) (Auto) 1 % (0-3) Basophils (%) (Auto) 0 % (0-3) Neutrophils # (Auto) 9.0 x10^3uL (1.8-7.7) Lymphocytes # (Auto) 2.5 x10^3/uL (1.0-4.8) Monocytes # (Auto) 1.6 x10^3/uL (0.0-1.1) Eosinophils # (Auto) 0.1 x10^3/uL (0.0-0.7) Basophils # (Auto) 0.1 x10^3/uL (0.0-0.2) Sodium Level 142 mmol/L (136-145) Potassium Level 3.2 mmol/L (3.5-5.1) Chloride Level 109 mmol/L (98-107) Carbon Dioxide Level 23 mmol/L (21-32) Anion Gap 10 (6-14) Blood Urea Nitrogen 22 mg/dL (8-26) Creatinine 0.9 mg/dL (0.7-1.3) Estimated GFR (Cockcroft-Gault) 89.3 Glucose Level 101 mg/dL (70-99) Calcium Level 7.9 mg/dL (8.5-10.1) Magnesium Level 2.2 mg/dL (1.8-2.4) Albumin 3.3 g/dL (3.4-5.0) Fibrinogen 254 mg/dL (200-440) Assessment Assessment Problems Medical Problems: (1) Bilateral finger numbness Status: Acute (2) Numbness and tingling of both feet Status: Acute (3) Weakness Status: Acute Problems: Plan Plan of Care Problems Medical Problems: (1) Bilateral finger numbness Status: Acute (2) Numbness and tingling of both feet Status: Acute (3) Weakness Status: Acute MUMTAZ CORDOVA MD Nov 30, 2016 10:42
--- NOTE | 2016-11-30 11:50 | PDOC ---
PROGRESS NOTES Chief Complaint Chief Complaint [place] Generalized weakness Numbness in hands and feet AMSN Diabetes, hypertension, gout, obesity, appendectomy, wrist and knee surgery. History of Present Illness History of Present Illness Pt seen at bedside in the ICU. Pt is in no acute distress and continues to improve. Numbness and weakness improving. Pt continues to be followed by neuro, infectious disease, physiatry, and pulmonology. Pt is currently on Plasmaphoresis. Vitals Vitals Vital Signs Date Time Temp Pulse Resp B/P (MAP) Pulse Ox O2 Delivery O2 Flow Rate FiO2 11/30/16 11:00 84 15 105/71 (82) 97 Room Air 11/30/16 08:00 98.2 98.2 11/30/16 06:00 2.0 Physical Exam Physical Exam Neuro: Hand and feet numb and has slurred speach General: Alert, Oriented X3, Cooperative, No acute distress, Other (Weak) Heart: Regular rate, Normal S1, Normal S2, No murmurs Lungs: Clear Abdomen: Normal bowel sounds, Soft, No tenderness, No hepatosplenomegaly, No masses Extremities: No clubbing, No cyanosis, No edema, Normal pulses, No tenderness/ swelling Skin: No rashes, No significant lesion Labs LABS Laboratory Tests Test 11/30/16 04:25 11/30/16 09:30 White Blood Count 13.3 x10^3/uL (4.0-11.0) Red Blood Count 5.13 x10^6/uL (4.30-5.70) Hemoglobin 14.5 g/dL (13.0-17.5) Hematocrit 43.4 % (39.0-53.0) Mean Corpuscular Volume 85 fL (79-100) Mean Corpuscular Hemoglobin 28 pg (25-35) Mean Corpuscular Hemoglobin Concent 33 g/dL (31-37) Red Cell Distribution Width 14.8 % (11.5-14.5) Platelet Count 243 x10^3/uL (140-400) Neutrophils (%) (Auto) 68 % (31-73) Lymphocytes (%) (Auto) 19 % (24-48) Monocytes (%) (Auto) 12 % (0-9) Eosinophils (%) (Auto) 1 % (0-3) Basophils (%) (Auto) 0 % (0-3) Neutrophils # (Auto) 9.0 x10^3uL (1.8-7.7) Lymphocytes # (Auto) 2.5 x10^3/uL (1.0-4.8) Monocytes # (Auto) 1.6 x10^3/uL (0.0-1.1) Eosinophils # (Auto) 0.1 x10^3/uL (0.0-0.7) Basophils # (Auto) 0.1 x10^3/uL (0.0-0.2) Sodium Level 142 mmol/L (136-145) Potassium Level 3.2 mmol/L (3.5-5.1) Chloride Level 109 mmol/L (98-107) Carbon Dioxide Level 23 mmol/L (21-32) Anion Gap 10 (6-14) Blood Urea Nitrogen 22 mg/dL (8-26) Creatinine 0.9 mg/dL (0.7-1.3) Estimated GFR (Cockcroft-Gault) 89.3 Glucose Level 101 mg/dL (70-99) Calcium Level 7.9 mg/dL (8.5-10.1) Magnesium Level 2.2 mg/dL (1.8-2.4) Albumin 3.3 g/dL (3.4-5.0) Fibrinogen 254 mg/dL (200-440) Review of Systems Review of Systems Pt complains of fatigue and hunger Assessment and Plan Assessmemt and Plan Problems Medical Problems: (1) Bilateral finger numbness Status: Acute (2) Numbness and tingling of both feet Status: Acute (3) Weakness Status: Acute Assesment: [place] Generalized weakness Numbness in hands and feet AMSN Diabetes Hypertension Gout Obesity Appendectomy Wrist and knee surgery Plan: Order 40mg Potassium Chloride PO Continue ICU monitoring Appreciate subspecialist input Continue PT/OT Continue at home meds Labs Possible discharge today to [facility] for rehab Problems: Comment Review of Relevant I have reviewed the following items jada (where applicable) has been applied. Labs Laboratory Tests Test 11/29/16 04:05 11/30/16 04:25 11/30/16 09:30 White Blood Count 16.8 x10^3/uL (4.0-11.0) 13.3 x10^3/uL (4.0-11.0) Red Blood Count 5.34 x10^6/uL (4.30-5.70) 5.13 x10^6/uL (4.30-5.70) Hemoglobin 15.0 g/dL (13.0-17.5) 14.5 g/dL (13.0-17.5) Hematocrit 45.2 % (39.0-53.0) 43.4 % (39.0-53.0) Mean Corpuscular Volume 85 fL (79-100) 85 fL (79-100) Mean Corpuscular Hemoglobin 28 pg (25-35) 28 pg (25-35) Mean Corpuscular Hemoglobin Concent 33 g/dL (31-37) 33 g/dL (31-37) Red Cell Distribution Width 14.8 % (11.5-14.5) 14.8 % (11.5-14.5) Platelet Count 278 x10^3/uL (140-400) 243 x10^3/uL (140-400) Neutrophils (%) (Auto) 69 % (31-73) 68 % (31-73) Lymphocytes (%) (Auto) 18 % (24-48) 19 % (24-48) Monocytes (%) (Auto) 11 % (0-9) 12 % (0-9) Eosinophils (%) (Auto) 1 % (0-3) 1 % (0-3) Basophils (%) (Auto) 1 % (0-3) 0 % (0-3) Neutrophils # (Auto) 11.6 x10^3uL (1.8-7.7) 9.0 x10^3uL (1.8-7.7) Lymphocytes # (Auto) 3.0 x10^3/uL (1.0-4.8) 2.5 x10^3/uL (1.0-4.8) Monocytes # (Auto) 1.9 x10^3/uL (0.0-1.1) 1.6 x10^3/uL (0.0-1.1) Eosinophils # (Auto) 0.2 x10^3/uL (0.0-0.7) 0.1 x10^3/uL (0.0-0.7) Basophils # (Auto) 0.1 x10^3/uL (0.0-0.2) 0.1 x10^3/uL (0.0-0.2) Prothrombin Time 15.5 SEC (11.7-14.0) Prothromb Time International Ratio 1.3 (0.8-1.1) Activated Partial Thromboplast Time 33 SEC (24-38) Fibrinogen 188 mg/dL (200-440) 254 mg/dL (200-440) Sodium Level 141 mmol/L (136-145) 142 mmol/L (136-145) Potassium Level 3.5 mmol/L (3.5-5.1) 3.2 mmol/L (3.5-5.1) Chloride Level 107 mmol/L (98-107) 109 mmol/L (98-107) Carbon Dioxide Level 25 mmol/L (21-32) 23 mmol/L (21-32) Anion Gap 9 (6-14) 10 (6-14) Blood Urea Nitrogen 24 mg/dL (8-26) 22 mg/dL (8-26) Creatinine 1.0 mg/dL (0.7-1.3) 0.9 mg/dL (0.7-1.3) Estimated GFR (Cockcroft-Gault) 79.1 89.3 BUN/Creatinine Ratio 24 (6-20) Glucose Level 106 mg/dL (70-99) 101 mg/dL (70-99) Calcium Level 8.3 mg/dL (8.5-10.1) 7.9 mg/dL (8.5-10.1) Total Bilirubin 0.9 mg/dL (0.2-1.0) Aspartate Amino Transf (AST/SGOT) 10 U/L (15-37) Alanine Aminotransferase (ALT/SGPT) 17 U/L (16-63) Alkaline Phosphatase 20 U/L (46-116) Total Protein 4.9 g/dL (6.4-8.2) Albumin 3.6 g/dL (3.4-5.0) 3.3 g/dL (3.4-5.0) Albumin/Globulin Ratio 2.8 (1.0-1.7) Magnesium Level 2.2 mg/dL (1.8-2.4) Laboratory Tests Test 11/30/16 04:25 11/30/16 09:30 White Blood Count 13.3 x10^3/uL (4.0-11.0) Red Blood Count 5.13 x10^6/uL (4.30-5.70) Hemoglobin 14.5 g/dL (13.0-17.5) Hematocrit 43.4 % (39.0-53.0) Mean Corpuscular Volume 85 fL (79-100) Mean Corpuscular Hemoglobin 28 pg (25-35) Mean Corpuscular Hemoglobin Concent 33 g/dL (31-37) Red Cell Distribution Width 14.8 % (11.5-14.5) Platelet Count 243 x10^3/uL (140-400) Neutrophils (%) (Auto) 68 % (31-73) Lymphocytes (%) (Auto) 19 % (24-48) Monocytes (%) (Auto) 12 % (0-9) Eosinophils (%) (Auto) 1 % (0-3) Basophils (%) (Auto) 0 % (0-3) Neutrophils # (Auto) 9.0 x10^3uL (1.8-7.7) Lymphocytes # (Auto) 2.5 x10^3/uL (1.0-4.8) Monocytes # (Auto) 1.6 x10^3/uL (0.0-1.1) Eosinophils # (Auto) 0.1 x10^3/uL (0.0-0.7) Basophils # (Auto) 0.1 x10^3/uL (0.0-0.2) Sodium Level 142 mmol/L (136-145) Potassium Level 3.2 mmol/L (3.5-5.1) Chloride Level 109 mmol/L (98-107) Carbon Dioxide Level 23 mmol/L (21-32) Anion Gap 10 (6-14) Blood Urea Nitrogen 22 mg/dL (8-26) Creatinine 0.9 mg/dL (0.7-1.3) Estimated GFR (Cockcroft-Gault) 89.3 Glucose Level 101 mg/dL (70-99) Calcium Level 7.9 mg/dL (8.5-10.1) Magnesium Level 2.2 mg/dL (1.8-2.4) Albumin 3.3 g/dL (3.4-5.0) Fibrinogen 254 mg/dL (200-440) Microbiology 11/26/16 Anaerobic/Aerobic Culture - Final, Complete 11/26/16 Anaerobic Culture Result 1 (ANILA) - Final, Complete 11/26/16 Aerobic Culture - Final, Complete 11/26/16 Aerobic Culture Result 1 (ANILA) - Final, Complete 11/25/16 Urine Culture - Final, Complete 11/25/16 Urine Culture Result 1 (ANILA) - Final, Complete Medications Current Medications Lorazepam (Ativan) 2 mg 1X ONCE IV Last administered on 11/25/16 16:15; Start 11/25/16 at 16:15; Stop 11/25/16 at 16:16; Status DC Lorazepam (Ativan) 2 mg 1X ONCE IV Last administered on 11/25/16 16:47; Start 11/25/16 at 16:45; Stop 11/25/16 at 16:46; Status DC Lidocaine HCl 20 ml STK-MED ONCE .ROUTE ; Start 11/25/16 at 19:13; Stop at 19:14; Status DC Ondansetron HCl (Zofran) 4 mg PRN Q8HRS PRN IV NAUSEA/VOMITING; Start at 20:45; Stop 11/26/16 at 20:44; Status DC Sodium Chloride 1,000 ml @ 150 mls/hr Q6H40M IV Last administered on 11:34; Start 11/25/16 at 20:42; Stop 11/26/16 at 20:41; Status DC Potassium Chloride (Klor-Con) 40 meq 1X ONCE PO Last administered on 09:14; Start 11/26/16 at 07:45; Stop 11/26/16 at 07:46; Status DC Lidocaine/Sodium Bicarbonate (Buffered Lidocaine 1%) 20 ml 1X ONCE IJ Last administered on 11/26/16 14:14; Start 11/26/16 at 12:45; Stop 11/26/16 at 12 :46; Status DC Lidocaine/Sodium Bicarbonate (Buffered Lidocaine 1%) 3 ml 1X ONCE IJ Last administered on 11/26/16 16:15; Start 11/26/16 at 16:15; Stop 11/26/16 at 16 :16; Status DC Heparin Sodium/ Sodium Chloride 60 unit 1X ONCE IV Last administered on 16:15; Start 11/26/16 at 16:15; Stop 11/26/16 at 16:16; Status DC Heparin Sodium (Porcine) (Heparin Sodium) 2,500 unit 1X ONCE INT CAT Last administered on 11/26/16 16:15; Start 11/26/16 at 16:15; Stop 11/26/16 at 16 :16; Status DC Lidocaine/Sodium Bicarbonate (Buffered Lidocaine 1%) 20 ml STK-MED ONCE IJ ; Start 11/26/16 at 16:22; Stop 11/26/16 at 16:23; Status DC Heparin Sodium (Porcine) (Heparin Sodium) 10,000 unit STK-MED ONCE .ROUTE ; Start 11/26/16 at 16:22; Stop 11/26/16 at 16:23; Status DC Heparin Sodium/ Sodium Chloride 500 ml @ As Directed STK-MED ONCE .ROUTE ; Start 11/26/16 at 16:22; Stop 11/26/16 at 16:23; Status DC Labetalol HCl (Normodyne) 10 mg PRN Q2HR PRN IVP HYPERTENSION, SEE COMMENTS Last administered on 11/27/16 15:08; Start 11/26/16 at 17:30 Allopurinol (Zyloprim) 100 mg DAILY PO Last administered on 11/30/16 08:38; Start 11/27/16 at 09:00 Benzonatate (Tessalon Perle) 100 mg TID PO Last administered on 11/30/16 08: 38; Start 11/26/16 at 21:00 Levothyroxine Sodium (Synthroid) 50 mcg DAILY07 PO Last administered on 06:18; Start 11/27/16 at 07:00 Metformin HCl (Glucophage) 850 mg DAILYWBKFT PO Last administered on 08:38; Start 11/27/16 at 08:00 Metoprolol Succinate (Toprol Xl) 25 mg DAILY PO Last administered on 08:38; Start 11/27/16 at 09:00 Losartan Potassium (Cozaar) 100 mg DAILY PO Last administered on 11/30/16 08: 39; Start 11/27/16 at 09:00 Famotidine (Pepcid) 20 mg BID PO Last administered on 11/30/16 08:38; Start 11/26/16 at 21:00 Hydrochlorothiazide (Microzide) 12.5 mg DAILY PO Last administered on 08:38; Start 11/27/16 at 09:00 Albumin Human/ Albumin Human 4,600 ml @ 766.667 mls/hr 1X ONCE IV ; Start at 19:45; Stop 11/26/16 at 19:45; Status DC Sodium Chloride 2,200 ml @ 366.667 mls/hr Q6H IV Last administered on 22:30; Start 11/26/16 at 19:45; Stop 11/27/16 at 01:44; Status DC Albumin Human/ Albumin Human 4,600 ml @ 766.667 mls/hr 1X ONCE IV Last administered on 11/26/16 19:45; Start 11/26/16 at 19:45; Stop 11/27/16 at 01 :44; Status DC Heparin Sodium (Porcine) (Heparin Sodium) 5,000 unit 1X ONCE IV Last administered on 11/27/16 12:54; Start 11/26/16 at 19:45; Stop 11/26/16 at 19 :46; Status DC Morphine Sulfate 2 mg PRN Q2HR PRN IV MODERATE PAIN Last administered on 21:11; Start 11/26/16 at 20:45 Fentanyl Citrate (Fentanyl 2ml Vial) 50 mcg PRN Q2HR PRN IV SEVERE PAIN Last administered on 11/30/16 10:21; Start 11/26/16 at 20:45 Acetaminophen/ Hydrocodone Bitart (Lortab 5/325) 1 tab PRN Q4HRS PRN PO PAIN; Start 11/26/16 at 20:45 Acetaminophen/ Hydrocodone Bitart (Lortab 10/325) 1 tab PRN Q6HRS PRN PO SEVERE PAIN Last administered on 11/28/16 08:20; Start 11/26/16 at 20:45 Lorazepam (Ativan) 0.5 mg PRN Q8HRS PRN PO ANXIETY / AGITATION Last administered on 11/27/16 20:23; Start 11/26/16 at 21:15 Lorazepam (Ativan) 1 mg PRN Q4HRS PRN IV ANXIETY / AGITATION Last administered on 11/29/16 10:21; Start 11/26/16 at 21:15 Ondansetron HCl (Zofran) 4 mg PRN Q6HRS PRN IV NAUSEA/VOMITING 1ST CHOICE; Start 11/26/16 at 23:00 Prochlorperazine Edisylate (Compazine) 10 mg PRN Q6HRS PRN IV NAUSEA/VOMITING 2ND CHOICE; Start 11/26/16 at 23:00 Albuterol Sulfate (Ventolin Neb Soln) 2.5 mg 1X ONCE NEB Last administered on 11/26/16 23:43; Start 11/26/16 at 23:45; Stop 11/26/16 at 23:46; Status DC Albuterol/ Ipratropium (Duoneb) 3 ml RTQID NEB Last administered on 11/30/16 08:09; Start 11/27/16 at 08:00 Furosemide (Lasix) 20 mg 1X ONCE IVP Last administered on 11/27/16 00:24; Start 11/27/16 at 00:30; Stop 11/27/16 at 00:31; Status DC Albumin Human 4,000 ml @ 666.667 mls/hr 1X ONCE IV Last administered on 11/28 10:06; Start 11/27/16 at 11:00; Stop 11/27/16 at 16:59; Status DC Sodium Chloride 2,000 ml @ 333.333 mls/hr Q6H IV ; Start 11/27/16 at 11:00; Stop 11/28/16 at 07:02; Status DC Enoxaparin Sodium (Lovenox 60mg Syringe) 60 mg Q12HR SQ Last administered on 08:38; Start 11/27/16 at 11:00 Heparin Sodium (Porcine) (Heparin Sodium) 5,000 unit 1X ONCE IV Last administered on 11/27/16 15:07; Start 11/27/16 at 11:00; Stop 11/27/16 at 11 :01; Status DC Perflutren Protein Type A Microsphe (Optison) 0.66 mg 1X ONCE IV Last administered on 11/27/16 11:50; Start 11/27/16 at 11:30; Stop 11/27/16 at 11 :31; Status DC Calcium Gluconate 2000 mg/Sodium Chloride 120 ml @ 220 mls/hr 1X ONCE IV Last administered on 11/27/16 12:51; Start 11/27/16 at 13:00; Stop 11/27/16 at 13:32; Status DC Albumin Human 4,000 ml @ 125 mls/hr 1X ONCE IV Last administered on 09:29; Start 11/28/16 at 08:00; Stop 11/29/16 at 15:59; Status DC Sodium Chloride 2,000 ml @ 0 mls/hr Q0M IV ; Start 11/28/16 at 08:00 Heparin Sodium (Porcine) (Heparin Sodium) 5,000 unit 1X ONCE IV Last administered on 11/28/16 09:28; Start 11/28/16 at 08:00; Stop 11/28/16 at 08 :01; Status DC Heparin Sodium (Porcine) (Heparin Sodium) 5,000 unit 1X ONCE IV ; Start at 10:00; Stop 11/28/16 at 10:07; Status DC Gadobutrol (Gadavist) 7 mmol 1X ONCE IV Last administered on 11/28/16 15:05 ; Start 11/28/16 at 15:00; Stop 11/28/16 at 15:04; Status DC Gadobutrol (Gadavist) 7 mmol 1X ONCE IV Last administered on 11/28/16 15:06 ; Start 11/28/16 at 15:00; Stop 11/28/16 at 15:04; Status DC Albumin Human 3,400 ml @ 500 mls/hr 1X ONCE IV Last administered on 09:58; Start 11/29/16 at 08:00; Stop 11/29/16 at 14:47; Status DC Sodium Chloride 1,000 ml @ 100 mls/hr Q10H IV Last administered on 11/29/16 08:00; Start 11/29/16 at 08:00; Stop 11/30/16 at 03:59; Status DC Potassium Chloride 50 ml @ 50 mls/hr Q1H IV Last administered on 11/29/16 11: 30; Start 11/29/16 at 10:30; Stop 11/29/16 at 12:29; Status DC Heparin Sodium (Porcine) (Heparin Sodium) 10,000 unit STK-MED ONCE .ROUTE ; Start 11/29/16 at 10:16; Stop 11/29/16 at 10:17; Status DC Dextrose (Dextrose 50%-Water Syringe) 12.5 gm PRN Q15MIN PRN IV SEE COMMENTS; Start 11/30/16 at 06:45; Status Cancel Sodium Chloride 3,000 ml @ 375 mls/hr Q8H IV Last administered on 11/30/16 10:47; Start 11/30/16 at 10:00; Stop 11/30/16 at 17:59 Albumin Human 3,000 ml @ 500 mls/hr 1X ONCE IV Last administered on 10:47; Start 11/30/16 at 10:00; Stop 11/30/16 at 15:59 Potassium Chloride 50 ml @ 50 mls/hr Q1H IV Last administered on 11/30/16 10: 22; Start 11/30/16 at 11:00; Stop 11/30/16 at 12:59 Heparin Sodium (Porcine) (Heparin Sodium) 5,000 unit 1X ONCE IV Last administered on 11/30/16 10:48; Start 11/30/16 at 10:15; Stop 11/30/16 at 10 :16; Status DC Active Scripts Active Reported Tessalon Perle (Benzonatate) 100 Mg Capsule 1 Cap PO TID Metformin Hcl 850 Mg Tablet 750 Mg PO DAILY Metoprolol Succinate ( Xl ) (Metoprolol Succinate) 25 Mg Tab.er.24h 1 Tab PO DAILY Losartan-Hctz 100-12.5 Mg Tab (Losartan/Hydrochlorothiazide) 1 Each Tablet 1 Tab PO DAILY Allopurinol 100 Mg Tablet 1 Tab PO DAILY Synthroid (Levothyroxine Sodium) 50 Mcg Tablet 1 Tab PO DAILY Zantac (Ranitidine Hcl) 150 Mg Tablet 1 Tab PO BID Vitals/I & O Vital Sign - Last 24 Hours 11/29/16 11/29/16 11/29/16 11/29/16 12:00 12:00 13:00 14:00 Temp 98.8 98.8 Pulse 94 90 119 Resp 20 16 21 B/P (MAP) 106/62 (77) 115/61 (79) 121/80 (94) Pulse Ox 99 96 97 O2 Delivery Room Air Room Air Room Air Room Air 11/29/16 11/29/16 11/29/16 11/29/16 15:00 15:39 16:00 16:00 Pulse 96 104 Resp 22 20 B/P (MAP) 107/65 (79) 113/61 (78) Pulse Ox 98 98 O2 Delivery Room Air Room Air Room Air Room Air 11/29/16 11/29/16 11/29/16 11/29/16 17:00 18:00 18:12 18:46 Temp 98.6 98.6 Pulse 110 127 Resp 29 24 27 B/P (MAP) 119/67 (84) 122/73 (89) Pulse Ox 94 94 92 O2 Delivery Room Air Room Air O2 Flow Rate 2.0 11/29/16 11/29/16 11/29/16 11/29/16 19:00 19:42 20:00 20:00 Temp 98.4 98.4 Pulse 105 116 Resp 17 17 B/P (MAP) 119/74 (89) 111/69 (83) Pulse Ox 93 94 94 O2 Delivery Room Air Room Air Room Air Room Air 11/29/16 11/29/16 11/29/16 11/29/16 21:00 21:45 22:00 23:00 Pulse 112 120 120 Resp 20 15 15 B/P (MAP) 111/69 (83) 117/69 (85) 120/68 (85) Pulse Ox 97 97 97 97 O2 Delivery Room Air BiPAP/CPAP BiPAP/CPAP BiPAP/CPAP 11/29/16 11/29/16 11/29/16 11/30/16 23:30 23:49 23:59 00:00 Temp 98.6 98.6 Pulse 118 Resp 17 18 B/P (MAP) 99/67 (78) Pulse Ox 95 97 O2 Delivery BiPAP/CPAP Room Air Room Air Room Air 11/30/16 11/30/16 11/30/16 11/30/16 00:19 01:00 02:00 03:00 Pulse 110 114 111 Resp 15 16 19 15 B/P (MAP) 127/62 (83) 127/62 (83) 119/76 (90) Pulse Ox 95 92 95 98 O2 Delivery Room Air Room Air Nasal Cannula Nasal Cannula O2 Flow Rate 2.0 2.0 11/30/16 11/30/16 11/30/16 11/30/16 04:00 04:00 05:00 06:00 Temp 98.6 98.6 Pulse 100 103 104 Resp 13 15 17 B/P (MAP) 122/76 (91) 140/87 (104) 148/79 (102) Pulse Ox 97 96 96 O2 Delivery Room Air Nasal Cannula Nasal Cannula Nasal Cannula O2 Flow Rate 2.0 2.0 2.0 11/30/16 11/30/16 11/30/16 11/30/16 07:00 08:00 08:00 08:09 Temp 98.2 98.2 Pulse 99 107 Resp 14 14 B/P (MAP) 148/79 (102) 117/86 (96) Pulse Ox 94 99 96 O2 Delivery Room Air Room Air Room Air Room Air 11/30/16 11/30/16 11/30/16 11/30/16 08:38 08:39 09:00 10:00 Pulse 99 99 107 99 Resp 17 15 B/P (MAP) 148/79 148/79 145/75 (98) 133/82 (99) Pulse Ox 97 98 O2 Delivery Room Air Room Air 11/30/16 11/30/16 10:21 11:00 Pulse 84 Resp 33 15 B/P (MAP) 105/71 (82) Pulse Ox 98 97 O2 Delivery Room Air Room Air Intake and Output 11/30/16 11/30/16 12/01/16 15:00 23:00 07:00 Intake Total 50 ml Output Total 575 ml Balance -525 ml JUAN LAZO III DO Nov 30, 2016 11:50
[2016-11-30] MEDS ORDERED: POTASSIUM CHLORIDE 20 MEQ TABLET.ER. PO ONE (12:30)
--- NOTE | 2016-11-30 13:50 | PDOC ---
PULMONARY PROGRESS NOTES Subjective NO INCREASE SOA WORE BIPAP Vitals Vital Signs Date Time Temp Pulse Resp B/P (MAP) Pulse Ox O2 Delivery O2 Flow Rate FiO2 11/30/16 13:00 98 21 147/78 (101) 98 Room Air 11/30/16 12:00 98.7 98.7 11/30/16 06:00 2.0 ROS: No Nausea, No Chest Pain, No Abdominal Pain, No Increase Cough Lungs: Clear Cardiovascular: S1, S2 Abdomen: Soft, Non-tender Neuro Exam: Alert Extremities: No Edema Skin: Warm Labs Laboratory Tests Test 11/29/16 04:05 11/30/16 04:25 11/30/16 09:30 White Blood Count 16.8 x10^3/uL (4.0-11.0) 13.3 x10^3/uL (4.0-11.0) Red Blood Count 5.34 x10^6/uL (4.30-5.70) 5.13 x10^6/uL (4.30-5.70) Hemoglobin 15.0 g/dL (13.0-17.5) 14.5 g/dL (13.0-17.5) Hematocrit 45.2 % (39.0-53.0) 43.4 % (39.0-53.0) Mean Corpuscular Volume 85 fL (79-100) 85 fL (79-100) Mean Corpuscular Hemoglobin 28 pg (25-35) 28 pg (25-35) Mean Corpuscular Hemoglobin Concent 33 g/dL (31-37) 33 g/dL (31-37) Red Cell Distribution Width 14.8 % (11.5-14.5) 14.8 % (11.5-14.5) Platelet Count 278 x10^3/uL (140-400) 243 x10^3/uL (140-400) Neutrophils (%) (Auto) 69 % (31-73) 68 % (31-73) Lymphocytes (%) (Auto) 18 % (24-48) 19 % (24-48) Monocytes (%) (Auto) 11 % (0-9) 12 % (0-9) Eosinophils (%) (Auto) 1 % (0-3) 1 % (0-3) Basophils (%) (Auto) 1 % (0-3) 0 % (0-3) Neutrophils # (Auto) 11.6 x10^3uL (1.8-7.7) 9.0 x10^3uL (1.8-7.7) Lymphocytes # (Auto) 3.0 x10^3/uL (1.0-4.8) 2.5 x10^3/uL (1.0-4.8) Monocytes # (Auto) 1.9 x10^3/uL (0.0-1.1) 1.6 x10^3/uL (0.0-1.1) Eosinophils # (Auto) 0.2 x10^3/uL (0.0-0.7) 0.1 x10^3/uL (0.0-0.7) Basophils # (Auto) 0.1 x10^3/uL (0.0-0.2) 0.1 x10^3/uL (0.0-0.2) Prothrombin Time 15.5 SEC (11.7-14.0) Prothromb Time International Ratio 1.3 (0.8-1.1) Activated Partial Thromboplast Time 33 SEC (24-38) Fibrinogen 188 mg/dL (200-440) 254 mg/dL (200-440) Sodium Level 141 mmol/L (136-145) 142 mmol/L (136-145) Potassium Level 3.5 mmol/L (3.5-5.1) 3.2 mmol/L (3.5-5.1) Chloride Level 107 mmol/L (98-107) 109 mmol/L (98-107) Carbon Dioxide Level 25 mmol/L (21-32) 23 mmol/L (21-32) Anion Gap 9 (6-14) 10 (6-14) Blood Urea Nitrogen 24 mg/dL (8-26) 22 mg/dL (8-26) Creatinine 1.0 mg/dL (0.7-1.3) 0.9 mg/dL (0.7-1.3) Estimated GFR (Cockcroft-Gault) 79.1 89.3 BUN/Creatinine Ratio 24 (6-20) Glucose Level 106 mg/dL (70-99) 101 mg/dL (70-99) Calcium Level 8.3 mg/dL (8.5-10.1) 7.9 mg/dL (8.5-10.1) Total Bilirubin 0.9 mg/dL (0.2-1.0) Aspartate Amino Transf (AST/SGOT) 10 U/L (15-37) Alanine Aminotransferase (ALT/SGPT) 17 U/L (16-63) Alkaline Phosphatase 20 U/L (46-116) Total Protein 4.9 g/dL (6.4-8.2) Albumin 3.6 g/dL (3.4-5.0) 3.3 g/dL (3.4-5.0) Albumin/Globulin Ratio 2.8 (1.0-1.7) Magnesium Level 2.2 mg/dL (1.8-2.4) Laboratory Tests Test 11/30/16 04:25 11/30/16 09:30 White Blood Count 13.3 x10^3/uL (4.0-11.0) Red Blood Count 5.13 x10^6/uL (4.30-5.70) Hemoglobin 14.5 g/dL (13.0-17.5) Hematocrit 43.4 % (39.0-53.0) Mean Corpuscular Volume 85 fL (79-100) Mean Corpuscular Hemoglobin 28 pg (25-35) Mean Corpuscular Hemoglobin Concent 33 g/dL (31-37) Red Cell Distribution Width 14.8 % (11.5-14.5) Platelet Count 243 x10^3/uL (140-400) Neutrophils (%) (Auto) 68 % (31-73) Lymphocytes (%) (Auto) 19 % (24-48) Monocytes (%) (Auto) 12 % (0-9) Eosinophils (%) (Auto) 1 % (0-3) Basophils (%) (Auto) 0 % (0-3) Neutrophils # (Auto) 9.0 x10^3uL (1.8-7.7) Lymphocytes # (Auto) 2.5 x10^3/uL (1.0-4.8) Monocytes # (Auto) 1.6 x10^3/uL (0.0-1.1) Eosinophils # (Auto) 0.1 x10^3/uL (0.0-0.7) Basophils # (Auto) 0.1 x10^3/uL (0.0-0.2) Sodium Level 142 mmol/L (136-145) Potassium Level 3.2 mmol/L (3.5-5.1) Chloride Level 109 mmol/L (98-107) Carbon Dioxide Level 23 mmol/L (21-32) Anion Gap 10 (6-14) Blood Urea Nitrogen 22 mg/dL (8-26) Creatinine 0.9 mg/dL (0.7-1.3) Estimated GFR (Cockcroft-Gault) 89.3 Glucose Level 101 mg/dL (70-99) Calcium Level 7.9 mg/dL (8.5-10.1) Magnesium Level 2.2 mg/dL (1.8-2.4) Albumin 3.3 g/dL (3.4-5.0) Fibrinogen 254 mg/dL (200-440) Medications Active Scripts Medications Dose Route/Sig Max Daily Dose Days Date Category Tessalon Perle (Benzonatate) 100 Mg Capsule 1 Cap PO TID 11/26/16 Reported Metformin Hcl 850 Mg Tablet 750 Mg PO DAILY 11/26/16 Reported Metoprolol Succinate ( Xl ) (Metoprolol Succinate) 25 Mg Tab.er.24h 1 Tab PO DAILY 11/26/16 Reported Losartan-Hctz 100-12.5 Mg Tab (Losartan/Hydrochlorothiazide) 1 Each Tablet 1 Tab PO DAILY 11/26/16 Reported Allopurinol 100 Mg Tablet 1 Tab PO DAILY 11/26/16 Reported Synthroid (Levothyroxine Sodium) 50 Mcg Tablet 1 Tab PO DAILY 11/26/16 Reported Zantac (Ranitidine Hcl) 150 Mg Tablet 1 Tab PO BID 11/26/16 Reported Impression . 1. Acute hypoxemic respiratory failure secondary to neuromuscular disease. GBS 2. Abnormal chest x-ray. 3. Atelectasis. 4. Leukocytosis. 5. Diabetes mellitus. 6. Hypertension. 7. Snoring, excessive daytime sleepiness and obesity, probable obstructive sleep apnea-hypopnea syndrome. . Plan . NO INCREASE SOA OK TO D/C TO REHAB SPEECH EVAL WILL CONTINUE BIPAP QHS OP SLEEP STUDY, PT GIVEN MY CARD TO CALL FOR FOLLOW UP APPT KD BETANCOURT MD Nov 30, 2016 13:50
--- NOTE | 2016-12-02 12:14 | DS ---
DATE OF DISCHARGE: 11/30/2016 ADMISSION DIAGNOSIS: Guillian-Hannah. DISCHARGE DIAGNOSIS: Guillian-Hannah. HOSPITAL COURSE: The patient is a pleasant 50-year-old male who I saw in the ER. He had a flu shot a couple of weeks ago. His hands were numb and his feet were numb. He was very weak. I felt he probably had Guillian-Hannah. We admitted the patient. We consulted Neurology. They did a lumbar puncture, which showed a lot of protein consistent with Guillian-Hannah. We did plasmapheresis for several days. He is doing a little better but quite weak. He is going to [facility] rehabilitation. DISPOSITION: [facility]. ACTIVITY: As tolerated. DIET: Low sodium. MEDICATIONS: Please see the MRAD. TOTAL TIME ON DISCHARGE: Thirty-six minutes. JUAN LAZO DO DR: DIANA/concepcion JOB#: [id number] / [id number]
== END 2016-11-30 15:30 | DRG 189 ==
LOC: ER 13:45 → 5 NORTH 17:32 → 1 WEST ICU 20:41
PROVIDERS: ADMIT Internal Medicine; ATTEND Internal Medicine
PROC: 02H633Z Insertion of Infusion Device into Right Atrium, Percutaneous Approach (ICD-10-PCS; principal; 2016-11-25)
PROC: 009U3ZX Drainage of Spinal Canal, Percutaneous Approach, Diagnostic (ICD-10-PCS; 2016-11-25)
PROC: B01B1ZZ Fluoroscopy of Spinal Cord using Low Osmolar Contrast (ICD-10-PCS; 2016-11-25)
PROC: 05HM33Z Insertion of Infusion Device into Right Internal Jugular Vein, Percutaneous Approach (ICD-10-PCS; 2016-11-25)
PROC: B543ZZA Ultrasonography of Right Jugular Veins, Guidance (ICD-10-PCS; 2016-11-25)
PROC: 5A09457 Assistance with Respiratory Ventilation, 24-96 Consecutive Hours, Continuous Positive Airway Pressure (ICD-10-PCS; 2016-11-25)
PROC: 5A1D70Z Performance of Urinary Filtration, Intermittent, Less than 6 Hours Per Day (ICD-10-PCS; 2016-11-25)
PROC: 5A1D70Z Performance of Urinary Filtration, Intermittent, Less than 6 Hours Per Day (ICD-10-PCS; 2016-11-25)
PROC: 30233N1 Transfusion of Nonautologous Red Blood Cells into Peripheral Vein, Percutaneous Approach (ICD-10-PCS; 2016-11-25)
DX: J96.01 Acute respiratory failure with hypoxia (principal); G61.0 Guillain-Barre syndrome; G62.9 Polyneuropathy, unspecified; G70.9 Myoneural disorder, unspecified; E66.01 Morbid (severe) obesity due to excess calories; G47.33 Obstructive sleep apnea (adult) (pediatric); D72.829 Elevated white blood cell count, unspecified; E11.9 Type 2 diabetes mellitus without complications; Z68.42 Body mass index [BMI] 45.0-49.9, adult; J98.11 Atelectasis; E66.9 Obesity, unspecified; M62.81 Muscle weakness (generalized); I10 Essential (primary) hypertension; M10.9 Gout, unspecified; Z83.3 Family history of diabetes mellitus; Z90.49 Acquired absence of other specified parts of digestive tract; Z90.89 Acquired absence of other organs
CPT/HCPCS: 62270; 99285; C8929; 36415; 36556; 36600; 70553; 71010; 72141; 76937; 80048; 80053; 80307; 81001; 82040; 82550; 82607; 82805; 82945; 82962; 83735; 83873; 84132; 84145; 84157; 84443; 84484; 85007; 85025; 85384; 85610; 85651; 85730; 86593; 86706; 86788; 86789; 86850; 86900; 86901; 86927; 87071; 87075; 87086; 87205; 87340; 87341; 87529; 87641; 89051; 93005; 94010; 94150; 94250; 94640; 94660; 94760; 96374; 96376; A9585; C1769; C1892; G0480; J0610; J1644; J1650; J2060; J2270; J3010; J3480; J3490; J7030; J7613; J7620; P9017; P9041; P9045; Q9956; 92610; 97530; 97535; G0479